=== PATIENT | male | born 1935 | race Caucasian/White ===

== ENCOUNTER 2017-12-15 15:51 | Inpatient (IN) | payer MEDICARE, OTHER, MEDICAID ==
[2017-12-15 16:54] LABS: AADO2 Arterial 141.5 mmHg (7.0-24.0); Allen Test ACCEPTAB; Arterial Base Excess 4.7 mmol/L (-3.0-3); Arterial Blood Gas Oxygen Sat 97.8 mmHG (95.0-100.0); Arterial COHb 0 % (0.0-3.0); Arterial Fraction of Oxyhgb 97.3 % (93.0-99.0); Arterial MetHb 0.5 % (0.0-1.5); Arterial pCO2 36.5 mmhg (35-45); MODE VENT - AC; Site Left Radial
[2017-12-15 17:05] LABS: WHITE BLOOD COUNT 29.8 10^3/ul (4.8-10.8)
[2017-12-15 17:05] LABS: ABNORMAL IP MESSAGE 1; HEMATOCRIT 26.8 % (42.0-52.0); HEMOGLOBIN 8.1 g/dl (14.0-18.0); MEAN CORPUSCULAR HEMOGLOBIN 24.8 pg (29.0-33.0); MEAN CORPUSCULAR HGB CONC 30.2 g/dl (32.0-37.0); MEAN PLATELET VOLUME 9.4 fl (7.4-10.4); PLATELET COUNT 648 10^3/UL (140-415); POSITIVE DIFF @See below; RED BLOOD COUNT 3.27 10^6/ul (4.70-6.10); RED CELL DISTRIBUTION WIDTH 17.3 % (11.5-14.5)
[2017-12-15 17:11] LABS: ADD MAN DIFF? YES
[2017-12-15 17:23] LABS: ALANINE AMINOTRANSFERASE 15 IU/L (13-69); ALBUMIN 3.1 g/dl (3.3-4.9); ALBUMIN/GLOBULIN RATIO 0.65; ALKALINE PHOSPHATASE 204 IU/L (42-121); ANION GAP 12 (8-16); ASPARTATE AMINO TRANSFERASE 33 IU/L (15-46); BILIRUBIN,INDIRECT 0.1 mg/dl (0-1.1); BILIRUBIN,TOTAL 0.1 mg/dl (0.2-1.3); BLOOD UREA NITROGEN 23 mg/dl (7-20); CALCIUM 9.3 mg/dl (8.4-10.2); CARBON DIOXIDE 33 mmol/L (21-31); CHLORIDE 95 mmol/L (97-110); CREATININE 0.52 mg/dl (0.61-1.24); GLUCOSE 212 mg/dl (70-220); POTASSIUM 3.9 mmol/L (3.5-5.1); SODIUM 136 mmol/L (135-144); TOTAL PROTEIN 7.8 g/dl (6.1-8.1)
[2017-12-15 17:29] LABS: LACTIC ACID 3.9 mmol/L (0.5-2.0)
[2017-12-15 17:37] LABS: INR 1.09; PROTIME 14.3 Sec (11.9-14.9); PT RATIO 1.1
[2017-12-15 17:38] LABS: PARTIAL THROMBOPLASTIN TIME 34.6 Sec (25.0-35.0)
[2017-12-15 17:39] LABS: TROPONIN-I < 0.012 ng/ml (0.00-0.12)
[2017-12-15] MEDS: SOD CHLORIDE 0.9% 1,860 ML IV (17:43)
[2017-12-15 17:44] LABS: PATH REVIEW? YES
[2017-12-15] MEDS: MEROPENEM 1 GM/50ML(PMX) 50 ML IVPB (17:47)
[2017-12-15 17:49] LABS: URINE BLOOD (Dip) POC 2+ (NEGATIVE); URINE GLUCOSE (Dip) POC Negative (NEGATIVE); URINE KETONES (Dip) POC Negative (NEGATIVE); URINE LEUKOCYTE EST (Dip) POC 2+ (NEGATIVE); URINE NITRITE (Dip) POC Negative (NEGATIVE); URINE TOTAL PROTEIN POC 1+ (NEGATIVE)
[2017-12-15 18:00] LABS: ANISOCYTOSIS 1+ (0-0); EOSINOPHILS % (M) 1 % (0-7); GIANT THROMBO% (M) 1 % (0-0); HYPOCHROMASIA 1+ (0-0); LYMPHOCYTES % (M) 7 % (15-51); MICROCYTOSIS 1+ (0-0); MONOCYTE #M 0.8 10^3/ul (0.3-0.9); MONOCYTES % (M) 3 % (0-11); PLATELET MORPHOLOGY COMMENT @See below; SEGMENTED NEUTROPHILS (M) % 89 % (39-77)
[2017-12-15 18:17] LABS: ADD UMIC YES; UR ASCORBIC ACID 40 mg/dL (NEGATIVE); UR BACTERIA MODERATE /HPF (NONE SEEN); UR BILIRUBIN (Dip) NEGATIVE (NEGATIVE); UR BLOOD (Dip) 1+ mg/dL (NEGATIVE); UR CLARITY SLIGHTLY CLOUDY (CLEAR); UR COLOR YELLOW (YELLOW); UR GLUCOSE (Dip) NEGATIVE (NEGATIVE); UR KETONES (Dip) NEGATIVE (NEGATIVE); UR LEUKOCYTE ESTERASE (Dip) 2+ Leu/ul (NEGATIVE); UR MUCUS FEW /HPF (NONE SEEN); UR NITRITE (Dip) NEGATIVE (NEGATIVE); UR RBC 7 /HPF (0-5); UR SPECIFIC GRAVITY (Dip) 1.019 (1.003-1.030); UR TOTAL PROTEIN (Dip) 1+ mg/dl (NEGATIVE); UR UROBILINOGEN (Dip) NEGATIVE (NEGATIVE); UR WBC 68 /HPF (0-5)
[2017-12-15] MEDS: LEVOFLOXACIN 750MG/D5W (PMX) 150 ML IVPB (18:27)
[2017-12-15] MEDS ORDERED: morphine 2 MG INJ IV (18:30)
[2017-12-15] MEDS ORDERED: NACL 0.9% 3 ML SYG IV ×2 (18:30)
[2017-12-15] MEDS ORDERED: HYDROCODONE/APAP (5/325) TAB PO (18:30)
[2017-12-15] MEDS ORDERED: ONDANSETRON 4 MG INJ IV (18:30)
[2017-12-15] MEDS ORDERED: GLUCAGON 1 MG INJ IM (19:00)
[2017-12-15] MEDS ORDERED: GLUCOSE GEL 15 GRAM TUBE BUCCAL (19:00)
[2017-12-15] MEDS ORDERED: GLUCOSE GEL 15 GRAM TUBE PO ×2 (19:00)
[2017-12-15] MEDS ORDERED: INSULIN GLARGINE [LANtus] 3 ML PEN SC (20:00)
[2017-12-15] MEDS: INSULIN GLARGINE [LANtus] 3 ML PEN SC (20:00)
[2017-12-15] MEDS: VANCOMYCIN 1 GM (PMX) 250 ML IVPB (20:06)
[2017-12-15 20:20] LABS: LACTIC ACID 2.8 mmol/L (0.5-2.0)
[2017-12-15] MEDS: METHYLPREDNISOLONE 125 MG INJ IV (22:15)
[2017-12-16] MEDS: INSULIN ASPART [NOVOLOG] 3 ML PEN SC ×5 (01:04→23:29)
[2017-12-16] MEDS ORDERED: ACCU-CHEK XX ×2 (02:00)
[2017-12-16] MEDS: ACCU-CHEK XX (02:00)
[2017-12-16] MEDS ORDERED: VANCOMYCIN IV PER PHARMACY XX (03:00)
[2017-12-16] MEDS ORDERED: PENDING SANTYL ORDER FOR WOUND CARE XX (03:30)
[2017-12-16] MEDS: PIPER-TAZO 3.375 GM IV (PMX) 100 ML IVPB ×4 (05:35→23:23)
[2017-12-16] MEDS: PANTOPRAZOLE (EC) 40 MG TAB PO (05:35)
[2017-12-16 09:33] LABS: ADD MAN DIFF? NO
[2017-12-16 09:37] LABS: ABNORMAL IP MESSAGE 1; BASOPHILS % 0.1 % (0.0-2.0); HEMATOCRIT 25.1 % (42.0-52.0); HEMOGLOBIN 7.5 g/dl (14.0-18.0); LYMPHOCYTES # 0.8 10^3/ul (0.8-2.9); LYMPHOCYTES % 3.2 % (15.0-51.0); MEAN CORPUSCULAR HGB CONC 29.9 g/dl (32.0-37.0); MEAN CORPUSCULAR VOLUME 80.4 fl (82.0-101.0); MEAN PLATELET VOLUME 8.6 fl (7.4-10.4); MONOCYTE # 0.2 10^3/ul (0.3-0.9); MONOCYTES % 0.9 % (0.0-11.0); NEUTROPHIL # 22.5 10^3/ul (1.6-7.5); NEUTROPHILS % 94.6 % (39.0-77.0); PLATELET COUNT 598 10^3/UL (140-415); POSITIVE DIFF @See below; RED BLOOD COUNT 3.12 10^6/ul (4.70-6.10); RED CELL DISTRIBUTION WIDTH 17.2 % (11.5-14.5)
[2017-12-16 09:37] LABS: WHITE BLOOD COUNT 23.8 10^3/ul (4.8-10.8)
[2017-12-16] MEDS: METHYLPREDNISOLONE 125 MG INJ IV ×2 (09:38→21:46)
[2017-12-16 10:03] LABS: ALANINE AMINOTRANSFERASE 16 IU/L (13-69); ALBUMIN 2.8 g/dl (3.3-4.9); ALBUMIN/GLOBULIN RATIO 0.63; ALKALINE PHOSPHATASE 166 IU/L (42-121); ANION GAP 13 (8-16); ASPARTATE AMINO TRANSFERASE 21 IU/L (15-46); BILIRUBIN,INDIRECT 0.3 mg/dl (0-1.1); BILIRUBIN,TOTAL 0.3 mg/dl (0.2-1.3); BLOOD UREA NITROGEN 20 mg/dl (7-20); CALCIUM 8.5 mg/dl (8.4-10.2); CARBON DIOXIDE 27 mmol/L (21-31); CHLORIDE 102 mmol/L (97-110); CREATININE 0.46 mg/dl (0.61-1.24); GLUCOSE 283 mg/dl (70-220); POTASSIUM 3.4 mmol/L (3.5-5.1); SODIUM 139 mmol/L (135-144); TOTAL PROTEIN 7.2 g/dl (6.1-8.1)
[2017-12-16] MEDS: VANCOMYCIN 750 MG in DEXTROSE 5% 150 ML IVPB ×2 (10:20→23:23)
[2017-12-16] MEDS ORDERED: VANCOMYCIN 1 GM 250 ML IVPB (14:00)
[2017-12-16] MEDS: POTASSIUM CHLORIDE 20 MEQ POWDER FOR ORAL SOLN GTB (21:46)
[2017-12-16] MEDS: INSULIN GLARGINE [LANtus] 3 ML PEN SC (22:09)
[2017-12-16] MEDS: SOD CHLORIDE 0.9% 1,000 ML IV (23:39)
[2017-12-17] MEDS: INSULIN ASPART [NOVOLOG] 3 ML PEN SC ×5 (01:59→17:48)
[2017-12-17] MEDS: ACCU-CHEK XX (02:00)
[2017-12-17 03:09] LABS: IMMEDIATE SPIN CROSSMATCH 1 2
[2017-12-17] MEDS: SOD CHLORIDE 0.9% 250 ML IV* (03:26)
[2017-12-17] MEDS: PANTOPRAZOLE 40 MG INJ IV (05:53)
[2017-12-17] MEDS: PIPER-TAZO 3.375 GM IV (PMX) 100 ML IVPB ×4 (05:54→21:37)
[2017-12-17] MEDS: SOD CHLORIDE 0.9% 1,000 ML IV ×2 (09:00→19:00)
[2017-12-17] MEDS: METHYLPREDNISOLONE 125 MG INJ IV ×2 (09:12→21:37)
[2017-12-17 09:19] LABS: ADD MAN DIFF? NO
[2017-12-17 09:21] LABS: WHITE BLOOD COUNT 14.9 10^3/ul (4.8-10.8)
[2017-12-17 09:21] LABS: BASOPHILS % 0.1 % (0.0-2.0); HEMATOCRIT 27.7 % (42.0-52.0); HEMOGLOBIN 8.6 g/dl (14.0-18.0); LYMPHOCYTES # 0.7 10^3/ul (0.8-2.9); LYMPHOCYTES % 4.5 % (15.0-51.0); MEAN CORPUSCULAR HEMOGLOBIN 25.5 pg (29.0-33.0); MEAN CORPUSCULAR VOLUME 82.2 fl (82.0-101.0); MEAN PLATELET VOLUME 8.6 fl (7.4-10.4); MONOCYTE # 0.4 10^3/ul (0.3-0.9); MONOCYTES % 2.3 % (0.0-11.0); NEUTROPHIL # 13.8 10^3/ul (1.6-7.5); NEUTROPHILS % 92.3 % (39.0-77.0); PLATELET COUNT 619 10^3/UL (140-415); RED BLOOD COUNT 3.37 10^6/ul (4.70-6.10); RED CELL DISTRIBUTION WIDTH 17.2 % (11.5-14.5)
[2017-12-17 09:49] LABS: ANION GAP 15 (8-16); BLOOD UREA NITROGEN 31 mg/dl (7-20); CALCIUM 8.5 mg/dl (8.4-10.2); CARBON DIOXIDE 24 mmol/L (21-31); CHLORIDE 107 mmol/L (97-110); CREATININE 0.49 mg/dl (0.61-1.24); GLUCOSE 270 mg/dl (70-220); POTASSIUM 3.6 mmol/L (3.5-5.1); SODIUM 142 mmol/L (135-144)
[2017-12-17 09:50] LABS: VANCOMYCIN,TROUGH 11.3 ug/ml (10.0-20.0)
[2017-12-17] MEDS: VANCOMYCIN 750 MG in DEXTROSE 5% 150 ML IVPB ×2 (14:32→21:37)
[2017-12-17] MEDS: INSULIN GLARGINE [LANtus] 3 ML PEN SC (21:50)
[2017-12-18] MEDS: INSULIN ASPART [NOVOLOG] 3 ML PEN SC ×10 (00:13→23:51)
[2017-12-18] MEDS: ACCU-CHEK XX (02:00)
[2017-12-18] MEDS: PIPER-TAZO 3.375 GM IV (PMX) 100 ML IVPB ×4 (06:19→23:48)
[2017-12-18] MEDS: PANTOPRAZOLE 40 MG INJ IV (06:19)
[2017-12-18 06:48] LABS: ADD MAN DIFF? NO
[2017-12-18 06:53] LABS: WHITE BLOOD COUNT 9.2 10^3/ul (4.8-10.8)
[2017-12-18 06:53] LABS: ABNORMAL IP MESSAGE 1; BASOPHILS % 0.1 % (0.0-2.0); HEMATOCRIT 33.1 % (42.0-52.0); HEMOGLOBIN 10.2 g/dl (14.0-18.0); LYMPHOCYTES # 0.5 10^3/ul (0.8-2.9); LYMPHOCYTES % 4.9 % (15.0-51.0); MEAN CORPUSCULAR HEMOGLOBIN 25.2 pg (29.0-33.0); MEAN CORPUSCULAR HGB CONC 30.8 g/dl (32.0-37.0); MEAN CORPUSCULAR VOLUME 81.7 fl (82.0-101.0); MEAN PLATELET VOLUME 8.7 fl (7.4-10.4); MONOCYTE # 0.3 10^3/ul (0.3-0.9); MONOCYTES % 2.7 % (0.0-11.0); NEUTROPHIL # 8.4 10^3/ul (1.6-7.5); NEUTROPHILS % 91.5 % (39.0-77.0); PLATELET COUNT 625 10^3/UL (140-415); POSITIVE DIFF @See below; RED BLOOD COUNT 4.05 10^6/ul (4.70-6.10); RED CELL DISTRIBUTION WIDTH 17.2 % (11.5-14.5)
[2017-12-18 07:12] LABS: ANION GAP 11 (8-16); BLOOD UREA NITROGEN 33 mg/dl (7-20); CALCIUM 8.3 mg/dl (8.4-10.2); CARBON DIOXIDE 27 mmol/L (21-31); CHLORIDE 107 mmol/L (97-110); CREATININE 0.48 mg/dl (0.61-1.24); GLUCOSE 344 mg/dl (70-220); POTASSIUM 3.4 mmol/L (3.5-5.1); SODIUM 142 mmol/L (135-144)
[2017-12-18] MEDS: METHYLPREDNISOLONE 125 MG INJ IV ×2 (08:41→21:16)
[2017-12-18] MEDS: VANCOMYCIN 750 MG in DEXTROSE 5% 150 ML IVPB ×2 (09:44→21:27)
[2017-12-18] MEDS: SOD CHLORIDE 0.9% 1,000 ML IV ×2 (13:21)
[2017-12-18] MEDS: POTASSIUM CHLORIDE 20 MEQ POWDER FOR ORAL SOLN GTB (13:21)
[2017-12-18] MEDS: INSULIN GLARGINE [LANtus] 3 ML PEN SC (21:15)
[2017-12-19] MEDS: ACCU-CHEK XX (00:48)
[2017-12-19] MEDS: PIPER-TAZO 3.375 GM IV (PMX) 100 ML IVPB ×2 (05:57→12:06)
[2017-12-19] MEDS: PANTOPRAZOLE 40 MG INJ IV (05:57)
[2017-12-19] MEDS: INSULIN ASPART [NOVOLOG] 3 ML PEN SC ×9 (06:05→23:55)
[2017-12-19] MEDS: METHYLPREDNISOLONE 125 MG INJ IV ×2 (08:00→21:05)
[2017-12-19] MEDS: VANCOMYCIN 750 MG in DEXTROSE 5% 150 ML IVPB ×2 (09:59→21:52)
[2017-12-19] MEDS ORDERED: ALBUTEROL 0.083% (NEB) 2.5 MG/3 ML AMP HHN (16:30)
[2017-12-19] MEDS: MEROPENEM 1 GM/50ML(PMX) 50 ML IVPB (21:05)
[2017-12-19] MEDS: INSULIN GLARGINE [LANtus] 3 ML PEN SC (21:15)
[2017-12-20] MEDS: ACCU-CHEK XX (02:00)
[2017-12-20] MEDS: PANTOPRAZOLE 40 MG INJ IV (05:31)
[2017-12-20] MEDS: INSULIN ASPART [NOVOLOG] 3 ML PEN SC ×6 (05:32→18:17)
[2017-12-20 06:31] LABS: ADD MAN DIFF? NO
[2017-12-20 06:37] LABS: WHITE BLOOD COUNT 8.5 10^3/ul (4.8-10.8)
[2017-12-20 06:37] LABS: BASOPHILS % 0.1 % (0.0-2.0); HEMATOCRIT 33.7 % (42.0-52.0); HEMOGLOBIN 10.8 g/dl (14.0-18.0); LYMPHOCYTES # 0.6 10^3/ul (0.8-2.9); LYMPHOCYTES % 7.3 % (15.0-51.0); MEAN CORPUSCULAR HEMOGLOBIN 25.5 pg (29.0-33.0); MEAN CORPUSCULAR VOLUME 79.7 fl (82.0-101.0); MEAN PLATELET VOLUME 8.7 fl (7.4-10.4); MONOCYTE # 0.4 10^3/ul (0.3-0.9); MONOCYTES % 4.4 % (0.0-11.0); NEUTROPHIL # 7.4 10^3/ul (1.6-7.5); NEUTROPHILS % 86.8 % (39.0-77.0); PLATELET COUNT 576 10^3/UL (140-415); RED BLOOD COUNT 4.23 10^6/ul (4.70-6.10)
[2017-12-20 07:01] LABS: ANION GAP 10 (8-16); BLOOD UREA NITROGEN 25 mg/dl (7-20); CALCIUM 8.1 mg/dl (8.4-10.2); CARBON DIOXIDE 32 mmol/L (21-31); CHLORIDE 94 mmol/L (97-110); GLUCOSE 296 mg/dl (70-220); POTASSIUM 3.6 mmol/L (3.5-5.1); SODIUM 132 mmol/L (135-144)
[2017-12-20] MEDS: METHYLPREDNISOLONE 125 MG INJ IV (09:35)
[2017-12-20] MEDS: MEROPENEM 1 GM/50ML(PMX) 50 ML IVPB ×2 (09:41→22:35)
[2017-12-20] MEDS: VANCOMYCIN 750 MG in DEXTROSE 5% 150 ML IVPB (10:52)
[2017-12-20 21:19] LABS: VANCOMYCIN,TROUGH 12.6 ug/ml (10.0-20.0)
[2017-12-20] MEDS: INSULIN GLARGINE [LANtus] 3 ML PEN SC (22:43)
[2017-12-21] MEDS: VANCOMYCIN 750 MG in DEXTROSE 5% 150 ML IVPB (01:23)
[2017-12-21] MEDS: INSULIN ASPART [NOVOLOG] 3 ML PEN SC ×9 (01:53→23:57)
[2017-12-21] MEDS: ACCU-CHEK XX (02:00)
[2017-12-21] MEDS: PANTOPRAZOLE 40 MG INJ IV (06:32)
[2017-12-21] MEDS: METHYLPREDNISOLONE 125 MG INJ IV (10:13)
[2017-12-21] MEDS: MEROPENEM 1 GM/50ML(PMX) 50 ML IVPB ×2 (10:13→21:03)
[2017-12-21] MEDS: VANCOMYCIN 1 GM 250 ML IVPB (12:29)
[2017-12-21] MEDS ORDERED: morphine LIQ (10 MG/5 ML) CUP GTB (16:30)
[2017-12-21] MEDS: INSULIN GLARGINE [LANtus] 3 ML PEN SC (21:20)
[2017-12-22] MEDS: INSULIN ASPART [NOVOLOG] 3 ML PEN SC ×8 (00:01→23:58)
[2017-12-22] MEDS: VANCOMYCIN 1 GM 250 ML IVPB ×2 (01:31→13:17)
[2017-12-22] MEDS: ACCU-CHEK XX (02:00)
[2017-12-22] MEDS: PANTOPRAZOLE 40 MG INJ IV (06:18)
[2017-12-22 08:05] LABS: ADD MAN DIFF? NO
[2017-12-22 08:07] LABS: BASOPHILS % 0.1 % (0.0-2.0); EOSINOPHILS # 0.1 10^3/ul (0.0-0.5); EOSINOPHILS % 0.6 % (0.0-7.0); HEMATOCRIT 35.6 % (42.0-52.0); HEMOGLOBIN 11.2 g/dl (14.0-18.0); LYMPHOCYTES % 7.8 % (15.0-51.0); MEAN CORPUSCULAR HEMOGLOBIN 25.6 pg (29.0-33.0); MEAN CORPUSCULAR HGB CONC 31.5 g/dl (32.0-37.0); MEAN CORPUSCULAR VOLUME 81.5 fl (82.0-101.0); MEAN PLATELET VOLUME 8.7 fl (7.4-10.4); MONOCYTE # 0.9 10^3/ul (0.3-0.9); NEUTROPHIL # 10.4 10^3/ul (1.6-7.5); NEUTROPHILS % 83.2 % (39.0-77.0); PLATELET COUNT 509 10^3/UL (140-415); RED BLOOD COUNT 4.37 10^6/ul (4.70-6.10); RED CELL DISTRIBUTION WIDTH 17.9 % (11.5-14.5)
[2017-12-22 08:07] LABS: WHITE BLOOD COUNT 12.5 10^3/ul (4.8-10.8)
[2017-12-22 08:35] LABS: ANION GAP 8 (8-16); BLOOD UREA NITROGEN 32 mg/dl (7-20); CALCIUM 8.2 mg/dl (8.4-10.2); CARBON DIOXIDE 34 mmol/L (21-31); CHLORIDE 95 mmol/L (97-110); CREATININE 0.39 mg/dl (0.61-1.24); GLUCOSE 88 mg/dl (70-220); POTASSIUM 3.4 mmol/L (3.5-5.1); SODIUM 134 mmol/L (135-144)
[2017-12-22] MEDS: METHYLPREDNISOLONE 125 MG INJ IV (09:40)
[2017-12-22] MEDS: MEROPENEM 1 GM/50ML(PMX) 50 ML IVPB ×2 (09:40→21:29)
[2017-12-22] MEDS: SOD CHLORIDE 0.9% 250 ML IV (13:17)
[2017-12-22] MEDS: POTASSIUM CHLORIDE 20 MEQ POWDER FOR ORAL SOLN NGT (13:17)
[2017-12-22] MEDS: INSULIN GLARGINE [LANtus] 3 ML PEN SC (20:06)
[2017-12-23] MEDS: INSULIN ASPART [NOVOLOG] 3 ML PEN SC ×5 (00:01→18:37)
[2017-12-23] MEDS: VANCOMYCIN 1 GM 250 ML IVPB ×2 (01:06→13:37)
[2017-12-23] MEDS: ACCU-CHEK XX (01:09)
[2017-12-23] MEDS: PANTOPRAZOLE 40 MG INJ IV (05:21)
[2017-12-23 08:53] LABS: ADD MAN DIFF? NO; BASOPHILS % 0.1 % (0.0-2.0); EOSINOPHILS # 0.1 10^3/ul (0.0-0.5); EOSINOPHILS % 0.6 % (0.0-7.0); HEMATOCRIT 33.7 % (42.0-52.0); HEMOGLOBIN 10.6 g/dl (14.0-18.0); LYMPHOCYTES # 0.9 10^3/ul (0.8-2.9); LYMPHOCYTES % 5.7 % (15.0-51.0); MEAN CORPUSCULAR HEMOGLOBIN 25.7 pg (29.0-33.0); MEAN CORPUSCULAR HGB CONC 31.5 g/dl (32.0-37.0); MEAN CORPUSCULAR VOLUME 81.8 fl (82.0-101.0); MEAN PLATELET VOLUME 8.7 fl (7.4-10.4); MONOCYTE # 0.9 10^3/ul (0.3-0.9); MONOCYTES % 5.8 % (0.0-11.0); NEUTROPHIL # 13.5 10^3/ul (1.6-7.5); NEUTROPHILS % 86.7 % (39.0-77.0); PLATELET COUNT 460 10^3/UL (140-415); RED BLOOD COUNT 4.12 10^6/ul (4.70-6.10); RED CELL DISTRIBUTION WIDTH 18.4 % (11.5-14.5)
[2017-12-23 08:53] LABS: WHITE BLOOD COUNT 15.6 10^3/ul (4.8-10.8)
[2017-12-23 09:20] LABS: ANION GAP 10 (8-16); BLOOD UREA NITROGEN 27 mg/dl (7-20); CALCIUM 7.6 mg/dl (8.4-10.2); CARBON DIOXIDE 30 mmol/L (21-31); CHLORIDE 96 mmol/L (97-110); CREATININE 0.41 mg/dl (0.61-1.24); GLUCOSE 136 mg/dl (70-220); POTASSIUM 3.8 mmol/L (3.5-5.1); SODIUM 132 mmol/L (135-144)
[2017-12-23 10:09] LABS: ADD UMIC YES; UR ASCORBIC ACID 40 mg/dL (NEGATIVE); UR BILIRUBIN (Dip) NEGATIVE (NEGATIVE); UR BLOOD (Dip) 3+ mg/dL (NEGATIVE); UR CLARITY CLOUDY (CLEAR); UR COLOR RED (YELLOW); UR GLUCOSE (Dip) NEGATIVE (NEGATIVE); UR KETONES (Dip) TRACE mg/dL (NEGATIVE); UR LEUKOCYTE ESTERASE (Dip) TRACE Leu/ul (NEGATIVE); UR NITRITE (Dip) NEGATIVE (NEGATIVE); UR RBC > 182 /HPF (0-5); UR SPECIFIC GRAVITY (Dip) 1.017 (1.003-1.030); UR TOTAL PROTEIN (Dip) 2+ mg/dl (NEGATIVE); UR UROBILINOGEN (Dip) NEGATIVE (NEGATIVE); UR WBC 59 /HPF (0-5)
[2017-12-23] MEDS: MEROPENEM 1 GM/50ML(PMX) 50 ML IVPB ×2 (10:13→20:28)
[2017-12-23] MEDS: METHYLPREDNISOLONE 125 MG INJ IV (10:13)
[2017-12-23 12:45] LABS: VANCOMYCIN,TROUGH 17.2 ug/ml (10.0-20.0)
[2017-12-23] MEDS: INSULIN GLARGINE [LANtus] 3 ML PEN SC (20:44)
[2017-12-23] MEDS: LEVALBUTEROL (HFA) 15 GM INHALER INH (23:27)
[2017-12-24] MEDS: INSULIN ASPART [NOVOLOG] 3 ML PEN SC ×4 (00:59→17:17)
[2017-12-24] MEDS: LEVALBUTEROL (HFA) 15 GM INHALER INH ×4 (01:28→21:05)
[2017-12-24] MEDS: VANCOMYCIN 750 MG in DEXTROSE 5% 150 ML IVPB ×2 (01:45→13:07)
[2017-12-24] MEDS: ACCU-CHEK XX (02:00)
[2017-12-24] MEDS: PANTOPRAZOLE 40 MG INJ IV (05:46)
[2017-12-24 06:17] LABS: ADD MAN DIFF? NO
[2017-12-24 07:05] LABS: ANION GAP 10 (8-16); BLOOD UREA NITROGEN 27 mg/dl (7-20); CALCIUM 7.8 mg/dl (8.4-10.2); CARBON DIOXIDE 30 mmol/L (21-31); CHLORIDE 95 mmol/L (97-110); CREATININE 0.39 mg/dl (0.61-1.24); GLUCOSE 139 mg/dl (70-220); SODIUM 131 mmol/L (135-144)
[2017-12-24 08:38] LABS: WHITE BLOOD COUNT 12.9 10^3/ul (4.8-10.8)
[2017-12-24 08:38] LABS: BASOPHILS % 0.1 % (0.0-2.0); EOSINOPHILS # 0.2 10^3/ul (0.0-0.5); EOSINOPHILS % 1.2 % (0.0-7.0); HEMATOCRIT 33.7 % (42.0-52.0); HEMOGLOBIN 10.7 g/dl (14.0-18.0); LYMPHOCYTES # 0.9 10^3/ul (0.8-2.9); LYMPHOCYTES % 7.3 % (15.0-51.0); MEAN CORPUSCULAR HEMOGLOBIN 26.2 pg (29.0-33.0); MEAN CORPUSCULAR HGB CONC 31.8 g/dl (32.0-37.0); MEAN CORPUSCULAR VOLUME 82.6 fl (82.0-101.0); MEAN PLATELET VOLUME 8.9 fl (7.4-10.4); MONOCYTE # 0.9 10^3/ul (0.3-0.9); MONOCYTES % 7.3 % (0.0-11.0); NEUTROPHIL # 10.7 10^3/ul (1.6-7.5); NEUTROPHILS % 83.1 % (39.0-77.0); PLATELET COUNT 447 10^3/UL (140-415); RED BLOOD COUNT 4.08 10^6/ul (4.70-6.10); RED CELL DISTRIBUTION WIDTH 18.6 % (11.5-14.5)
[2017-12-24] MEDS: MEROPENEM 1 GM/50ML(PMX) 50 ML IVPB ×2 (09:13→21:37)
[2017-12-24] MEDS: METHYLPREDNISOLONE 125 MG INJ IV (09:13)
[2017-12-24] MEDS: DEXTROSE 5%-0.45% NACL 1,000 ML IV (16:00)
[2017-12-24] MEDS: INSULIN GLARGINE [LANtus] 3 ML PEN SC ×2 (21:58→22:22)
[2017-12-25] MEDS: LEVALBUTEROL (HFA) 15 GM INHALER INH ×4 (01:35→19:25)
[2017-12-25] MEDS: ACCU-CHEK XX (02:00)
[2017-12-25] MEDS: VANCOMYCIN 750 MG in DEXTROSE 5% 150 ML IVPB ×2 (03:29→14:16)
[2017-12-25] MEDS: INSULIN ASPART [NOVOLOG] 3 ML PEN SC ×4 (05:28→17:33)
[2017-12-25] MEDS: PANTOPRAZOLE 40 MG INJ IV (05:40)
[2017-12-25 07:10] LABS: ADD MAN DIFF? NO
[2017-12-25 07:12] LABS: WHITE BLOOD COUNT 13.4 10^3/ul (4.8-10.8)
[2017-12-25 07:12] LABS: BASOPHILS % 0.1 % (0.0-2.0); EOSINOPHILS # 0.4 10^3/ul (0.0-0.5); EOSINOPHILS % 2.6 % (0.0-7.0); HEMATOCRIT 38.4 % (42.0-52.0); LYMPHOCYTES # 1.3 10^3/ul (0.8-2.9); MEAN CORPUSCULAR HEMOGLOBIN 25.6 pg (29.0-33.0); MEAN CORPUSCULAR HGB CONC 31.3 g/dl (32.0-37.0); MEAN CORPUSCULAR VOLUME 81.9 fl (82.0-101.0); MEAN PLATELET VOLUME 10.7 fl (7.4-10.4); MONOCYTES % 7.3 % (0.0-11.0); NEUTROPHIL # 10.6 10^3/ul (1.6-7.5); NEUTROPHILS % 79.2 % (39.0-77.0); PLATELET COUNT 272 10^3/UL (140-415); RED BLOOD COUNT 4.69 10^6/ul (4.70-6.10); RED CELL DISTRIBUTION WIDTH 19.7 % (11.5-14.5)
[2017-12-25 07:42] LABS: ANION GAP 9 (8-16); BLOOD UREA NITROGEN 21 mg/dl (7-20); CALCIUM 7.9 mg/dl (8.4-10.2); CARBON DIOXIDE 30 mmol/L (21-31); CHLORIDE 97 mmol/L (97-110); CREATININE 0.39 mg/dl (0.61-1.24); GLUCOSE 65 mg/dl (70-220); SODIUM 132 mmol/L (135-144)
[2017-12-25] MEDS: MEROPENEM 1 GM/50ML(PMX) 50 ML IVPB ×2 (08:44→22:15)
[2017-12-25] MEDS: DEXTROSE 5%-0.45% NACL 1,000 ML IV (08:44)
[2017-12-25] MEDS: METHYLPREDNISOLONE 125 MG INJ IV (08:46)
[2017-12-25] MEDS: INSULIN GLARGINE [LANtus] 3 ML PEN SC (22:33)
[2017-12-26] MEDS: LEVALBUTEROL (HFA) 15 GM INHALER INH ×4 (01:06→19:39)
[2017-12-26] MEDS: ACCU-CHEK XX (02:00)
[2017-12-26] MEDS: VANCOMYCIN 750 MG in DEXTROSE 5% 150 ML IVPB ×2 (05:56→18:00)
[2017-12-26] MEDS: PANTOPRAZOLE 40 MG INJ IV (05:56)
[2017-12-26] MEDS: LORAZEPAM 2 MG INJ IV ×2 (05:56→07:04)
[2017-12-26] MEDS: INSULIN ASPART [NOVOLOG] 3 ML PEN SC ×4 (06:00→17:50)
[2017-12-26] MEDS: DEXTROSE 5%-0.45% NACL 1,000 ML IV (06:00)
[2017-12-26 07:28] LABS: ADD MAN DIFF? NO
[2017-12-26 07:32] LABS: WHITE BLOOD COUNT 14.4 10^3/ul (4.8-10.8)
[2017-12-26 07:33] LABS: BASOPHILS % 0.1 % (0.0-2.0); EOSINOPHILS # 0.4 10^3/ul (0.0-0.5); EOSINOPHILS % 2.5 % (0.0-7.0); HEMATOCRIT 39.1 % (42.0-52.0); LYMPHOCYTES # 1.2 10^3/ul (0.8-2.9); LYMPHOCYTES % 8.3 % (15.0-51.0); MEAN CORPUSCULAR HEMOGLOBIN 25.8 pg (29.0-33.0); MEAN CORPUSCULAR HGB CONC 30.7 g/dl (32.0-37.0); MEAN CORPUSCULAR VOLUME 84.1 fl (82.0-101.0); MEAN PLATELET VOLUME 8.9 fl (7.4-10.4); MONOCYTE # 1.2 10^3/ul (0.3-0.9); MONOCYTES % 8.3 % (0.0-11.0); NEUTROPHIL # 11.5 10^3/ul (1.6-7.5); PLATELET COUNT 378 10^3/UL (140-415); RED BLOOD COUNT 4.65 10^6/ul (4.70-6.10)
[2017-12-26 07:59] LABS: LACTIC ACID 2.6 mmol/L (0.5-2.0)
[2017-12-26 08:00] LABS: ANION GAP 12 (8-16); BLOOD UREA NITROGEN 21 mg/dl (7-20); CALCIUM 8.2 mg/dl (8.4-10.2); CARBON DIOXIDE 27 mmol/L (21-31); CHLORIDE 98 mmol/L (97-110); CREATININE 0.38 mg/dl (0.61-1.24); GLUCOSE 125 mg/dl (70-220); POTASSIUM 4.6 mmol/L (3.5-5.1); SODIUM 132 mmol/L (135-144)
[2017-12-26] MEDS: METHYLPREDNISOLONE 125 MG INJ IV (09:49)
[2017-12-26] MEDS: MEROPENEM 1 GM/50ML(PMX) 50 ML IVPB ×2 (09:49→21:34)
[2017-12-26] MEDS: FLUCONAZOLE 100 MG TAB PO (16:09)
[2017-12-26] MEDS: NS + KCL 20 MEQ 1,000 ML IV (16:54)
[2017-12-26 19:10] LABS: VANCOMYCIN,TROUGH 13.7 ug/ml (10.0-20.0)
[2017-12-26] MEDS: INSULIN GLARGINE [LANtus] 3 ML PEN SC (20:00)
[2017-12-27] MEDS: LEVALBUTEROL (HFA) 15 GM INHALER INH ×4 (01:02→19:28)
[2017-12-27] MEDS: ACCU-CHEK XX (02:41)
[2017-12-27] MEDS: PANTOPRAZOLE 40 MG INJ IV (05:04)
[2017-12-27 06:33] LABS: ADD MAN DIFF? NO
[2017-12-27 06:38] LABS: WHITE BLOOD COUNT 10.2 10^3/ul (4.8-10.8)
[2017-12-27 06:38] LABS: BASOPHILS % 0.1 % (0.0-2.0); EOSINOPHILS # 0.2 10^3/ul (0.0-0.5); EOSINOPHILS % 1.7 % (0.0-7.0); HEMATOCRIT 34.3 % (42.0-52.0); HEMOGLOBIN 10.7 g/dl (14.0-18.0); LYMPHOCYTES # 0.9 10^3/ul (0.8-2.9); LYMPHOCYTES % 9.2 % (15.0-51.0); MEAN CORPUSCULAR HEMOGLOBIN 26.1 pg (29.0-33.0); MEAN CORPUSCULAR HGB CONC 31.2 g/dl (32.0-37.0); MEAN CORPUSCULAR VOLUME 83.7 fl (82.0-101.0); MEAN PLATELET VOLUME 9.3 fl (7.4-10.4); MONOCYTES % 10.2 % (0.0-11.0); PLATELET COUNT 367 10^3/UL (140-415); RED CELL DISTRIBUTION WIDTH 19.8 % (11.5-14.5)
[2017-12-27] MEDS: VANCOMYCIN 750 MG in DEXTROSE 5% 150 ML IVPB ×2 (06:58→17:54)
[2017-12-27 07:00] LABS: ANION GAP 9 (8-16); BLOOD UREA NITROGEN 24 mg/dl (7-20); CALCIUM 7.9 mg/dl (8.4-10.2); CARBON DIOXIDE 30 mmol/L (21-31); CHLORIDE 102 mmol/L (97-110); CREATININE 0.41 mg/dl (0.61-1.24); GLUCOSE 161 mg/dl (70-220); POTASSIUM 4.2 mmol/L (3.5-5.1); SODIUM 137 mmol/L (135-144)
[2017-12-27] MEDS: INSULIN ASPART [NOVOLOG] 3 ML PEN SC ×4 (07:07→18:01)
[2017-12-27] MEDS: FLUCONAZOLE 100 MG TAB PO (09:02)
[2017-12-27] MEDS: METHYLPREDNISOLONE 125 MG INJ IV (09:02)
[2017-12-27] MEDS: MEROPENEM 1 GM/50ML(PMX) 50 ML IVPB ×2 (09:03→21:28)
[2017-12-27] MEDS: NS + KCL 20 MEQ 1,000 ML IV (12:05)
[2017-12-27] MEDS: INSULIN GLARGINE [LANtus] 3 ML PEN SC (21:41)
[2017-12-28] MEDS: ACCU-CHEK XX (00:56)
[2017-12-28] MEDS: LEVALBUTEROL (HFA) 15 GM INHALER INH ×4 (01:49→19:33)
[2017-12-28] MEDS: INSULIN ASPART [NOVOLOG] 3 ML PEN SC ×4 (06:26→18:36)
[2017-12-28] MEDS: PANTOPRAZOLE 40 MG INJ IV (06:37)
[2017-12-28] MEDS: VANCOMYCIN 750 MG in DEXTROSE 5% 150 ML IVPB ×2 (06:39→17:57)
[2017-12-28 08:21] LABS: ADD MAN DIFF? NO
[2017-12-28 08:24] LABS: EOSINOPHILS % 0.1 % (0.0-7.0); HEMATOCRIT 33.9 % (42.0-52.0); HEMOGLOBIN 10.5 g/dl (14.0-18.0); LYMPHOCYTES # 0.9 10^3/ul (0.8-2.9); LYMPHOCYTES % 8.9 % (15.0-51.0); MEAN CORPUSCULAR HEMOGLOBIN 25.6 pg (29.0-33.0); MEAN CORPUSCULAR VOLUME 82.7 fl (82.0-101.0); MEAN PLATELET VOLUME 9.5 fl (7.4-10.4); MONOCYTE # 0.8 10^3/ul (0.3-0.9); MONOCYTES % 8.2 % (0.0-11.0); NEUTROPHIL # 8.1 10^3/ul (1.6-7.5); NEUTROPHILS % 82.2 % (39.0-77.0); PLATELET COUNT 360 10^3/UL (140-415); RED CELL DISTRIBUTION WIDTH 19.9 % (11.5-14.5)
[2017-12-28 08:24] LABS: WHITE BLOOD COUNT 9.9 10^3/ul (4.8-10.8)
[2017-12-28 08:49] LABS: IRON 58 ug/dl (35-150)
[2017-12-28 08:50] LABS: ANION GAP 10 (8-16); BLOOD UREA NITROGEN 26 mg/dl (7-20); CARBON DIOXIDE 27 mmol/L (21-31); CHLORIDE 101 mmol/L (97-110); CREATININE 0.37 mg/dl (0.61-1.24); GLUCOSE 129 mg/dl (70-220); POTASSIUM 4.2 mmol/L (3.5-5.1); SODIUM 134 mmol/L (135-144)
[2017-12-28 08:58] LABS: % IRON SATURATION 25 % SAT (22-52); TOTAL IRON BINDING CAPACITY 233 ug/dl (241-421)
[2017-12-28] MEDS: NS + KCL 20 MEQ 1,000 ML IV (09:00)
[2017-12-28] MEDS: MEROPENEM 1 GM/50ML(PMX) 50 ML IVPB ×2 (09:56→20:35)
[2017-12-28] MEDS: METHYLPREDNISOLONE 125 MG INJ IV (09:56)
[2017-12-28] MEDS: FLUCONAZOLE 100 MG TAB PO (09:57)
[2017-12-28 10:03] LABS: RETICULOCYTE COUNT # 0.061 X10^6 (0.020-0.110); RETICULOCYTE COUNT % 1.5 % (0.5-1.5)
[2017-12-28 10:03] LABS: RETICULOCYTE RBC 4.12
[2017-12-28 11:52] LABS: OCCULT BLOOD STOOL POSITIVE (NEGATIVE)
[2017-12-28 12:17] LABS: FOLATE 12.2 ng/ml (2.8-20.0)
[2017-12-28] MEDS: INSULIN GLARGINE [LANtus] 3 ML PEN SC (20:52)
[2017-12-29] MEDS: NS + KCL 20 MEQ 1,000 ML IV ×2 (00:09→21:20)
[2017-12-29] MEDS: INSULIN ASPART [NOVOLOG] 3 ML PEN SC ×5 (00:40→21:14)
[2017-12-29] MEDS: LEVALBUTEROL (HFA) 15 GM INHALER INH ×4 (01:34→19:22)
[2017-12-29] MEDS: ACCU-CHEK XX (02:00)
[2017-12-29] MEDS: PANTOPRAZOLE 40 MG INJ IV (06:09)
[2017-12-29] MEDS: VANCOMYCIN 750 MG in DEXTROSE 5% 150 ML IVPB ×2 (06:12→18:11)
[2017-12-29] MEDS: METHYLPREDNISOLONE 125 MG INJ IV (09:21)
[2017-12-29] MEDS: MEROPENEM 1 GM/50ML(PMX) 50 ML IVPB ×2 (09:21→21:11)
[2017-12-29] MEDS: FLUCONAZOLE 100 MG TAB PO (09:21)
[2017-12-29 09:40] LABS: WHITE BLOOD COUNT 11.7 10^3/ul (4.8-10.8)
[2017-12-29 09:40] LABS: ADD MAN DIFF? NO; BASOPHILS % 0.1 % (0.0-2.0); EOSINOPHILS # 0.1 10^3/ul (0.0-0.5); EOSINOPHILS % 0.7 % (0.0-7.0); HEMATOCRIT 33.1 % (42.0-52.0); HEMOGLOBIN 10.4 g/dl (14.0-18.0); LYMPHOCYTES # 0.9 10^3/ul (0.8-2.9); LYMPHOCYTES % 7.7 % (15.0-51.0); MEAN CORPUSCULAR HEMOGLOBIN 26.2 pg (29.0-33.0); MEAN CORPUSCULAR HGB CONC 31.4 g/dl (32.0-37.0); MEAN CORPUSCULAR VOLUME 83.4 fl (82.0-101.0); MEAN PLATELET VOLUME 9.4 fl (7.4-10.4); MONOCYTE # 0.9 10^3/ul (0.3-0.9); NEUTROPHIL # 9.7 10^3/ul (1.6-7.5); NEUTROPHILS % 82.8 % (39.0-77.0); PLATELET COUNT 296 10^3/UL (140-415); RED BLOOD COUNT 3.97 10^6/ul (4.70-6.10); RED CELL DISTRIBUTION WIDTH 19.9 % (11.5-14.5)
[2017-12-29 10:10] LABS: ANION GAP 10 (8-16); BLOOD UREA NITROGEN 26 mg/dl (7-20); CARBON DIOXIDE 29 mmol/L (21-31); CHLORIDE 99 mmol/L (97-110); CREATININE 0.41 mg/dl (0.61-1.24); GLUCOSE 159 mg/dl (70-220); POTASSIUM 4.1 mmol/L (3.5-5.1); SODIUM 134 mmol/L (135-144)
[2017-12-29] MEDS: INSULIN GLARGINE [LANtus] 3 ML PEN SC (21:14)
[2017-12-30] MEDS: LEVALBUTEROL (HFA) 15 GM INHALER INH ×3 (01:04→19:32)
[2017-12-30] MEDS: ACCU-CHEK XX ×2 (02:00→23:45)
[2017-12-30] MEDS: VANCOMYCIN 750 MG in DEXTROSE 5% 150 ML IVPB ×2 (06:00→20:13)
[2017-12-30] MEDS: INSULIN ASPART [NOVOLOG] 3 ML PEN SC ×4 (06:00→23:44)
[2017-12-30] MEDS: PANTOPRAZOLE 40 MG INJ IV (06:04)
[2017-12-30] MEDS: DEXTROSE 50% 50 ML SYRINGE IV (06:26)
[2017-12-30 06:28] LABS: ADD MAN DIFF? NO
[2017-12-30 06:31] LABS: PLATELET COUNT 283 10^3/UL (140-415)
[2017-12-30 06:33] LABS: WHITE BLOOD COUNT 11.1 10^3/ul (4.8-10.8)
[2017-12-30 06:33] LABS: BASOPHILS % 0.1 % (0.0-2.0); EOSINOPHILS % 0.4 % (0.0-7.0); HEMATOCRIT 32.4 % (42.0-52.0); HEMOGLOBIN 10.5 g/dl (14.0-18.0); LYMPHOCYTES # 1.2 10^3/ul (0.8-2.9); LYMPHOCYTES % 10.4 % (15.0-51.0); MEAN CORPUSCULAR HEMOGLOBIN 26.5 pg (29.0-33.0); MEAN CORPUSCULAR HGB CONC 32.4 g/dl (32.0-37.0); MEAN CORPUSCULAR VOLUME 81.8 fl (82.0-101.0); MEAN PLATELET VOLUME 9.2 fl (7.4-10.4); MONOCYTE # 0.8 10^3/ul (0.3-0.9); MONOCYTES % 6.9 % (0.0-11.0); NEUTROPHIL # 9.1 10^3/ul (1.6-7.5); NEUTROPHILS % 81.6 % (39.0-77.0); PLATELET COUNT 275 10^3/UL (140-415); RED BLOOD COUNT 3.96 10^6/ul (4.70-6.10); RED CELL DISTRIBUTION WIDTH 19.7 % (11.5-14.5)
[2017-12-30 06:55] LABS: ANION GAP 11 (8-16); BLOOD UREA NITROGEN 25 mg/dl (7-20); CARBON DIOXIDE 28 mmol/L (21-31); CHLORIDE 98 mmol/L (97-110); CREATININE 0.38 mg/dl (0.61-1.24); GLUCOSE 61 mg/dl (70-220); POTASSIUM 3.7 mmol/L (3.5-5.1); SODIUM 133 mmol/L (135-144)
[2017-12-30 07:00] LABS: INR 0.97
[2017-12-30 07:01] LABS: PARTIAL THROMBOPLASTIN TIME 26.3 Sec (25.0-35.0)
[2017-12-30 07:05] LABS: THROMBIN TIME 16.9 SEC (13.8-19.1)
[2017-12-30 07:09] LABS: VANCOMYCIN,TROUGH 12.5 ug/ml (10.0-20.0)
[2017-12-30] MEDS: FLUCONAZOLE 100 MG TAB PO (08:36)
[2017-12-30] MEDS: METHYLPREDNISOLONE 125 MG INJ IV (08:36)
[2017-12-30] MEDS: MEROPENEM 1 GM/50ML(PMX) 50 ML IVPB ×4 (10:54→23:38)
[2017-12-30] MEDS: SOD CHLORIDE 0.9% 1,000 ML IV (12:10)
[2017-12-30] MEDS: LIDOCAINE 1% (MPF) 5 ML VIAL SC (16:00)
[2017-12-30] MEDS: NS + KCL 20 MEQ 1,000 ML IV (20:15)
[2017-12-30] MEDS: INSULIN GLARGINE [LANtus] 3 ML PEN SC (20:18)
[2017-12-31] MEDS: LEVALBUTEROL (HFA) 15 GM INHALER INH ×4 (01:42→19:47)
[2017-12-31] MEDS: PANTOPRAZOLE 40 MG INJ IV (05:58)
[2017-12-31] MEDS: INSULIN ASPART [NOVOLOG] 3 ML PEN SC ×4 (05:59→18:00)
[2017-12-31] MEDS: VANCOMYCIN 750 MG in DEXTROSE 5% 150 ML IVPB ×2 (06:00→18:00)
[2017-12-31 06:55] LABS: ABNORMAL IP MESSAGE 1; HEMATOCRIT 39.6 % (42.0-52.0); HEMOGLOBIN 12.5 g/dl (14.0-18.0); MEAN CORPUSCULAR HEMOGLOBIN 26.4 pg (29.0-33.0); MEAN CORPUSCULAR HGB CONC 31.6 g/dl (32.0-37.0); MEAN CORPUSCULAR VOLUME 83.5 fl (82.0-101.0); MEAN PLATELET VOLUME 9.3 fl (7.4-10.4); PLATELET COUNT 256 10^3/UL (140-415); POSITIVE DIFF @See below; RED BLOOD COUNT 4.74 10^6/ul (4.70-6.10); RED CELL DISTRIBUTION WIDTH 20.4 % (11.5-14.5)
[2017-12-31 06:55] LABS: WHITE BLOOD COUNT 41.1 10^3/ul (4.8-10.8)
[2017-12-31 07:07] LABS: ADD MAN DIFF? YES
[2017-12-31 07:39] LABS: ALANINE AMINOTRANSFERASE 20 IU/L (13-69); ALBUMIN 2.8 g/dl (3.3-4.9); ALBUMIN/GLOBULIN RATIO 0.84; ALKALINE PHOSPHATASE 163 IU/L (42-121); ANION GAP 8 (8-16); ASPARTATE AMINO TRANSFERASE 24 IU/L (15-46); BILIRUBIN,INDIRECT 0.3 mg/dl (0-1.1); BILIRUBIN,TOTAL 0.3 mg/dl (0.2-1.3); BLOOD UREA NITROGEN 24 mg/dl (7-20); CALCIUM 8.3 mg/dl (8.4-10.2); CARBON DIOXIDE 26 mmol/L (21-31); CHLORIDE 107 mmol/L (97-110); CREATININE 0.36 mg/dl (0.61-1.24); GLUCOSE 72 mg/dl (70-220); POTASSIUM 3.4 mmol/L (3.5-5.1); SODIUM 138 mmol/L (135-144); TOTAL PROTEIN 6.1 g/dl (6.1-8.1)
[2017-12-31] MEDS: FLUCONAZOLE 100 MG TAB PO (09:06)
[2017-12-31] MEDS: MEROPENEM 1 GM/50ML(PMX) 50 ML IVPB ×2 (09:06→22:33)
[2017-12-31] MEDS: METHYLPREDNISOLONE 125 MG INJ IV (09:06)
[2017-12-31 10:46] LABS: ANISOCYTOSIS 2+ (0-0); BAND NEUTROPHILS #M 3.2 10^3/ul (0.0-0.6); BAND NEUTROPHILS % (M) 8 % (0-4); HYPOCHROMASIA 1+ (0-0); LYMPHOCYTES #M 0.4 10^3/ul (0.8-2.9); LYMPHOCYTES % (M) 1 % (15-51); MICROCYTOSIS 2+ (0-0); PLATELET ESTIMATE NORMAL; POLYCHROMASIA 3+ (0-0); SEG NEUT #M 38.7 10^3/ul (1.6-7.5); SEGMENTED NEUTROPHILS (M) % 91 % (39-77); SMUDGE%M 3 % (0-0)
[2017-12-31] MEDS: ACETAMINOPHEN 325 MG TAB PO (11:43)
[2017-12-31] MEDS: DEXTROSE 50% 50 ML SYRINGE IV (11:43)
[2017-12-31] MEDS: SOD CHLORIDE 0.9% 500 ML IV ×2 (13:25→16:14)
[2017-12-31] MEDS: NS + KCL 20 MEQ 1,000 ML IV (14:14)
[2017-12-31] MEDS: metroNIDAZOLE 500 MG TAB PO ×2 (14:14→22:34)
[2017-12-31 14:20] LABS: WHITE BLOOD COUNT 49.6 10^3/ul (4.8-10.8)
[2017-12-31 14:20] LABS: ABNORMAL IP MESSAGE 1; HEMOGLOBIN 9.6 g/dl (14.0-18.0); MEAN CORPUSCULAR HEMOGLOBIN 26.7 pg (29.0-33.0); MEAN CORPUSCULAR VOLUME 83.6 fl (82.0-101.0); MEAN PLATELET VOLUME 9.2 fl (7.4-10.4); PLATELET COUNT 200 10^3/UL (140-415); POSITIVE DIFF @See below; RED BLOOD COUNT 3.59 10^6/ul (4.70-6.10); RED CELL DISTRIBUTION WIDTH 20.3 % (11.5-14.5)
[2017-12-31 14:21] LABS: ADD MAN DIFF? YES
[2017-12-31 14:34] LABS: ANION GAP 6 (8-16); BLOOD UREA NITROGEN 28 mg/dl (7-20); CALCIUM 7.2 mg/dl (8.4-10.2); CARBON DIOXIDE 26 mmol/L (21-31); CHLORIDE 105 mmol/L (97-110); CREATININE 0.44 mg/dl (0.61-1.24); GLUCOSE 107 mg/dl (70-220); POTASSIUM 3.3 mmol/L (3.5-5.1); SODIUM 134 mmol/L (135-144)
[2017-12-31 14:55] LABS: LACTIC ACID 2.3 mmol/L (0.5-2.0)
[2017-12-31 15:40] LABS: ANISOCYTOSIS 2+ (0-0); BAND NEUTROPHILS #M 8.9 10^3/ul (0.0-0.6); BAND NEUTROPHILS % (M) 18 % (0-4); HYPOCHROMASIA 2+ (0-0); MICROCYTOSIS 2+ (0-0); PLATELET ESTIMATE NORMAL; POLYCHROMASIA 1+ (0-0); SEG NEUT #M 45.1 10^3/ul (1.6-7.5); SEGMENTED NEUTROPHILS (M) % 82 % (39-77); SMUDGE%M 11 % (0-0)
[2017-12-31] MEDS ORDERED: PHENYLephrine 20MG IN 250 ML 250 ML IV (18:00)
[2017-12-31] MEDS: SOD CHLORIDE 0.9% 1,000 ML IV (18:10)
[2017-12-31] MEDS ORDERED: PHENYLephrine 40 MG in DEXTROSE 5% 496 ML IV (18:30)
[2017-12-31] MEDS: POTASSIUM CHLORIDE 100 ML IVPB (20:40)
[2017-12-31] MEDS: INSULIN GLARGINE [LANtus] 3 ML PEN SC (22:33)
[2017-12-31] MEDS: ACCU-CHEK XX (22:58)
[2018-01-01] MEDS: LEVALBUTEROL (HFA) 15 GM INHALER INH ×4 (01:14→19:16)
[2018-01-01] MEDS: PANTOPRAZOLE 40 MG INJ IV (05:06)
[2018-01-01] MEDS: metroNIDAZOLE 500 MG TAB PO (05:06)
[2018-01-01] MEDS: NS + KCL 20 MEQ 1,000 ML IV ×2 (05:06→20:13)
[2018-01-01] MEDS: VANCOMYCIN 750 MG in DEXTROSE 5% 150 ML IVPB ×2 (05:06→18:50)
[2018-01-01] MEDS: INSULIN ASPART [NOVOLOG] 3 ML PEN SC ×5 (06:18→23:00)
[2018-01-01] MEDS: FLUCONAZOLE 100 MG TAB PO (09:07)
[2018-01-01] MEDS: METHYLPREDNISOLONE 125 MG INJ IV (09:07)
[2018-01-01] MEDS: MEROPENEM 1 GM/50ML(PMX) 50 ML IVPB (09:35)
[2018-01-01] MEDS: metroNIDAZOLE 500 MG/NS (PMX) 100 ML IVPB ×3 (12:31→22:59)
[2018-01-01] MEDS: INSULIN GLARGINE [LANtus] 3 ML PEN SC (20:12)
[2018-01-02] MEDS: LEVALBUTEROL (HFA) 15 GM INHALER INH ×4 (01:15→19:25)
[2018-01-02] MEDS: ACCU-CHEK XX (02:00)
[2018-01-02] MEDS: DEXTROSE 50% 50 ML SYRINGE IV (04:28)
[2018-01-02] MEDS: PANTOPRAZOLE 40 MG INJ IV (04:46)
[2018-01-02] MEDS: VANCOMYCIN 750 MG in DEXTROSE 5% 150 ML IVPB ×2 (04:46→17:24)
[2018-01-02] MEDS: INSULIN ASPART [NOVOLOG] 3 ML PEN SC ×5 (04:46→20:49)
[2018-01-02] MEDS: metroNIDAZOLE 500 MG/NS (PMX) 100 ML IVPB ×3 (04:46→17:23)
[2018-01-02 05:45] LABS: ADD MAN DIFF? NO
[2018-01-02 06:01] LABS: WHITE BLOOD COUNT 20.5 10^3/ul (4.8-10.8)
[2018-01-02 06:01] LABS: BASOPHILS % 0.1 % (0.0-2.0); HEMATOCRIT 28.7 % (42.0-52.0); HEMOGLOBIN 9.4 g/dl (14.0-18.0); LYMPHOCYTES # 0.8 10^3/ul (0.8-2.9); LYMPHOCYTES % 3.9 % (15.0-51.0); MEAN CORPUSCULAR HEMOGLOBIN 26.8 pg (29.0-33.0); MEAN CORPUSCULAR HGB CONC 32.8 g/dl (32.0-37.0); MEAN CORPUSCULAR VOLUME 81.8 fl (82.0-101.0); MEAN PLATELET VOLUME 9.9 fl (7.4-10.4); MONOCYTE # 0.3 10^3/ul (0.3-0.9); MONOCYTES % 1.7 % (0.0-11.0); NEUTROPHIL # 19.2 10^3/ul (1.6-7.5); NEUTROPHILS % 93.8 % (39.0-77.0); PLATELET COUNT 154 10^3/UL (140-415); RED BLOOD COUNT 3.51 10^6/ul (4.70-6.10); RED CELL DISTRIBUTION WIDTH 20.9 % (11.5-14.5)
[2018-01-02 06:23] LABS: ANION GAP 10 (8-16); BLOOD UREA NITROGEN 16 mg/dl (7-20); CALCIUM 7.9 mg/dl (8.4-10.2); CARBON DIOXIDE 25 mmol/L (21-31); CHLORIDE 106 mmol/L (97-110); CREATININE 0.36 mg/dl (0.61-1.24); PHOSPHORUS 2.1 mg/dl (2.5-4.9); POTASSIUM 3.8 mmol/L (3.5-5.1); SODIUM 137 mmol/L (135-144)
[2018-01-02 06:51] LABS: GLUCOSE 40 mg/dl (70-220)
[2018-01-02] MEDS: FLUCONAZOLE 100 MG TAB PO (07:49)
[2018-01-02] MEDS: METHYLPREDNISOLONE 125 MG INJ IV (08:49)
[2018-01-02] MEDS: DEXTROSE 5%-0.9% NACL 1,000 ML IV (09:00)
[2018-01-02] MEDS: D5-NS + KCL 20 MEQ 1,000 ML IV (09:35)
[2018-01-02] MEDS: INSULIN GLARGINE [LANtus] 3 ML PEN SC (20:00)
[2018-01-03] MEDS: INSULIN ASPART [NOVOLOG] 3 ML PEN SC ×6 (00:59→20:45)
[2018-01-03] MEDS: metroNIDAZOLE 500 MG/NS (PMX) 100 ML IVPB ×2 (01:02→05:19)
[2018-01-03] MEDS: D5-NS + KCL 20 MEQ 1,000 ML IV ×2 (01:02→11:40)
[2018-01-03] MEDS: LEVALBUTEROL (HFA) 15 GM INHALER INH ×4 (01:11→19:17)
[2018-01-03 05:15] LABS: ADD MAN DIFF? NO
[2018-01-03] MEDS: PANTOPRAZOLE 40 MG INJ IV (05:19)
[2018-01-03 05:26] LABS: BASOPHILS % 0.1 % (0.0-2.0); EOSINOPHILS % 0.1 % (0.0-7.0); HEMATOCRIT 30.7 % (42.0-52.0); HEMOGLOBIN 9.8 g/dl (14.0-18.0); LYMPHOCYTES # 0.6 10^3/ul (0.8-2.9); LYMPHOCYTES % 6.2 % (15.0-51.0); MEAN CORPUSCULAR HEMOGLOBIN 26.6 pg (29.0-33.0); MEAN CORPUSCULAR HGB CONC 31.9 g/dl (32.0-37.0); MEAN CORPUSCULAR VOLUME 83.4 fl (82.0-101.0); MONOCYTE # 0.3 10^3/ul (0.3-0.9); MONOCYTES % 2.8 % (0.0-11.0); NEUTROPHIL # 8.9 10^3/ul (1.6-7.5); NEUTROPHILS % 90.2 % (39.0-77.0); PLATELET COUNT 138 10^3/UL (140-415); RED BLOOD COUNT 3.68 10^6/ul (4.70-6.10); RED CELL DISTRIBUTION WIDTH 21.1 % (11.5-14.5)
[2018-01-03 05:26] LABS: WHITE BLOOD COUNT 9.9 10^3/ul (4.8-10.8)
[2018-01-03 06:02] LABS: VANCOMYCIN,TROUGH 14.5 ug/ml (10.0-20.0)
[2018-01-03 06:13] LABS: ANION GAP 9 (8-16); BLOOD UREA NITROGEN 12 mg/dl (7-20); CALCIUM 7.9 mg/dl (8.4-10.2); CARBON DIOXIDE 28 mmol/L (21-31); CHLORIDE 104 mmol/L (97-110); CREATININE 0.38 mg/dl (0.61-1.24); GLUCOSE 119 mg/dl (70-220); POTASSIUM 3.7 mmol/L (3.5-5.1); SODIUM 137 mmol/L (135-144)
[2018-01-03] MEDS: VANCOMYCIN 750 MG in DEXTROSE 5% 150 ML IVPB ×2 (06:18→17:13)
[2018-01-03] MEDS: FLUCONAZOLE 100 MG TAB PO (08:55)
[2018-01-03] MEDS: METHYLPREDNISOLONE 40 MG INJ IV (08:56)
[2018-01-03] MEDS: LORAZEPAM 2 MG INJ IV (10:30)
[2018-01-03] MEDS ORDERED: metroNIDAZOLE 500 MG/NS (PMX) 250 MG in EVAC CONTAINER 1 BOTTLE IVPB (14:00)
[2018-01-03] MEDS: Metronidazole 500 MG in NS 100 ML IVPB ×2 (15:47→21:14)
[2018-01-03] MEDS: INSULIN GLARGINE [LANtus] 3 ML PEN SC (20:44)
[2018-01-04] MEDS: INSULIN ASPART [NOVOLOG] 3 ML PEN SC ×6 (01:00→21:00)
[2018-01-04] MEDS: LEVALBUTEROL (HFA) 15 GM INHALER INH ×4 (01:37→19:17)
[2018-01-04] MEDS: D5-NS + KCL 20 MEQ 1,000 ML IV ×2 (01:43→14:20)
[2018-01-04] MEDS: DEXTROSE 50% 50 ML SYRINGE IV ×3 (04:54→13:45)
[2018-01-04] MEDS: PANTOPRAZOLE 40 MG INJ IV (05:09)
[2018-01-04] MEDS: Metronidazole 500 MG in NS 100 ML IVPB ×3 (05:09→21:08)
[2018-01-04] MEDS: VANCOMYCIN 750 MG in DEXTROSE 5% 150 ML IVPB ×2 (05:58→17:38)
[2018-01-04 08:01] LABS: ADD MAN DIFF? NO
[2018-01-04 08:30] LABS: ANION GAP 14 (8-16); BLOOD UREA NITROGEN 11 mg/dl (7-20); CALCIUM 8.1 mg/dl (8.4-10.2); CARBON DIOXIDE 26 mmol/L (21-31); CHLORIDE 98 mmol/L (97-110); CREATININE 0.38 mg/dl (0.61-1.24); GLUCOSE 53 mg/dl (70-220); POTASSIUM 3.6 mmol/L (3.5-5.1); SODIUM 134 mmol/L (135-144)
[2018-01-04] MEDS: FLUCONAZOLE 100 MG TAB PO (08:41)
[2018-01-04 09:46] LABS: WHITE BLOOD COUNT 15.8 10^3/ul (4.8-10.8)
[2018-01-04 09:46] LABS: BASOPHILS % 0.1 % (0.0-2.0); EOSINOPHILS # 0.1 10^3/ul (0.0-0.5); EOSINOPHILS % 0.8 % (0.0-7.0); HEMATOCRIT 36.2 % (42.0-52.0); HEMOGLOBIN 11.5 g/dl (14.0-18.0); LYMPHOCYTES # 1.3 10^3/ul (0.8-2.9); LYMPHOCYTES % 7.9 % (15.0-51.0); MEAN CORPUSCULAR HEMOGLOBIN 26.6 pg (29.0-33.0); MEAN CORPUSCULAR HGB CONC 31.8 g/dl (32.0-37.0); MEAN CORPUSCULAR VOLUME 83.8 fl (82.0-101.0); MEAN PLATELET VOLUME 9.7 fl (7.4-10.4); MONOCYTE # 0.2 10^3/ul (0.3-0.9); NEUTROPHIL # 14.2 10^3/ul (1.6-7.5); NEUTROPHILS % 89.7 % (39.0-77.0); PLATELET COUNT 132 10^3/UL (140-415); RED BLOOD COUNT 4.32 10^6/ul (4.70-6.10); RED CELL DISTRIBUTION WIDTH 21.3 % (11.5-14.5)
[2018-01-04] MEDS: ACETAMINOPHEN 650 MG SUPP PR (09:53)
[2018-01-04] MEDS: SOD CHLORIDE 0.9% 1,000 ML IV (11:47)
[2018-01-04] MEDS: VANCOMYCIN HCL 250 MG/5ML POSYG PO (12:00)
[2018-01-04] MEDS: MEROPENEM 500MG/50 ML (PMX) 50 ML IVPB ×2 (13:14→21:08)
[2018-01-04] MEDS ORDERED: NORepinephrine 8MG/250 ML (PMX 250 ML IV (13:30)
[2018-01-04] MEDS ORDERED: NORepinephrine 8MG/250 ML (PMX 250 ML (13:34)
[2018-01-04 13:35] LABS: ALPHA FETOPROTEIN 1.53 IU/L (0.00-7.21)
[2018-01-04] MEDS: LORAZEPAM 2 MG INJ IV (14:35)
[2018-01-04] MEDS ORDERED: morphine 2 MG INJ (14:48)
[2018-01-04] MEDS: FLUCONAZOLE 100 MG/50 ML (PMX) 50 ML IVPB (16:00)
[2018-01-04] MEDS: INSULIN GLARGINE [LANtus] 3 ML PEN SC (20:00)
[2018-01-05] MEDS: INSULIN ASPART [NOVOLOG] 3 ML PEN SC ×6 (01:00→21:05)
[2018-01-05] MEDS: LEVALBUTEROL (HFA) 15 GM INHALER INH ×4 (01:24→20:23)
[2018-01-05] MEDS: D5-NS + KCL 20 MEQ 1,000 ML IV ×2 (03:25→11:22)
[2018-01-05 05:23] LABS: ADD MAN DIFF? NO
[2018-01-05] MEDS: Metronidazole 500 MG in NS 100 ML IVPB ×3 (05:29→21:05)
[2018-01-05] MEDS: PANTOPRAZOLE 40 MG INJ IV (05:29)
[2018-01-05 05:51] LABS: ABNORMAL IP MESSAGE 1; BASOPHILS % 0.1 % (0.0-2.0); EOSINOPHILS # 0.7 10^3/ul (0.0-0.5); EOSINOPHILS % 6.9 % (0.0-7.0); HEMATOCRIT 31.1 % (42.0-52.0); HEMOGLOBIN 10.1 g/dl (14.0-18.0); LYMPHOCYTES # 0.4 10^3/ul (0.8-2.9); LYMPHOCYTES % 3.7 % (15.0-51.0); MEAN CORPUSCULAR HEMOGLOBIN 26.7 pg (29.0-33.0); MEAN CORPUSCULAR HGB CONC 32.5 g/dl (32.0-37.0); MEAN CORPUSCULAR VOLUME 82.3 fl (82.0-101.0); MEAN PLATELET VOLUME 9.4 fl (7.4-10.4); MONOCYTE # 0.2 10^3/ul (0.3-0.9); MONOCYTES % 1.6 % (0.0-11.0); NEUTROPHIL # 9.1 10^3/ul (1.6-7.5); NEUTROPHILS % 86.9 % (39.0-77.0); POSITIVE DIFF @See below; RED BLOOD COUNT 3.78 10^6/ul (4.70-6.10); RED CELL DISTRIBUTION WIDTH 21.2 % (11.5-14.5)
[2018-01-05 05:51] LABS: WHITE BLOOD COUNT 10.5 10^3/ul (4.8-10.8)
[2018-01-05 05:52] LABS: PLATELET COUNT 79 10^3/UL (140-415)
[2018-01-05 05:59] LABS: ANION GAP 9 (8-16); BLOOD UREA NITROGEN 9 mg/dl (7-20); CALCIUM 7.3 mg/dl (8.4-10.2); CARBON DIOXIDE 26 mmol/L (21-31); CHLORIDE 100 mmol/L (97-110); CREATININE 0.37 mg/dl (0.61-1.24); GLUCOSE 122 mg/dl (70-220); POTASSIUM 3.3 mmol/L (3.5-5.1); SODIUM 132 mmol/L (135-144)
[2018-01-05] MEDS: VANCOMYCIN 750 MG in DEXTROSE 5% 150 ML IVPB ×2 (06:12→17:31)
[2018-01-05] MEDS: MEROPENEM 500MG/50 ML (PMX) 50 ML IVPB ×2 (08:26→21:05)
[2018-01-05] MEDS: POTASSIUM CHLORIDE 100 ML IVPB ×2 (11:22→13:36)
[2018-01-05] MEDS ORDERED: COLLAGENASE 5 GM (UD JAR) TOP (12:30)
[2018-01-05] MEDS: FLUCONAZOLE 100 MG/50 ML (PMX) 50 ML IVPB (15:24)
[2018-01-05] MEDS: ACETAMINOPHEN 650 MG SUPP PR (15:26)
[2018-01-05] MEDS: INSULIN GLARGINE [LANtus] 3 ML PEN SC (20:00)
[2018-01-06] MEDS: INSULIN ASPART [NOVOLOG] 3 ML PEN SC ×6 (00:43→20:58)
[2018-01-06] MEDS: LEVALBUTEROL (HFA) 15 GM INHALER INH ×4 (01:24→20:05)
[2018-01-06] MEDS: VANCOMYCIN 750 MG in DEXTROSE 5% 150 ML IVPB ×2 (05:14→17:16)
[2018-01-06] MEDS: PANTOPRAZOLE 40 MG INJ IV (05:14)
[2018-01-06] MEDS: Metronidazole 500 MG in NS 100 ML IVPB ×3 (05:14→21:01)
[2018-01-06 06:08] LABS: ABNORMAL IP MESSAGE 1; HEMATOCRIT 29.2 % (42.0-52.0); HEMOGLOBIN 9.4 g/dl (14.0-18.0); MEAN CORPUSCULAR HGB CONC 32.2 g/dl (32.0-37.0); MEAN CORPUSCULAR VOLUME 83.9 fl (82.0-101.0); MEAN PLATELET VOLUME 10.2 fl (7.4-10.4); PLATELET COUNT 76 10^3/UL (140-415); POSITIVE DIFF @See below; RED BLOOD COUNT 3.48 10^6/ul (4.70-6.10); RED CELL DISTRIBUTION WIDTH 21.4 % (11.5-14.5)
[2018-01-06 06:08] LABS: WHITE BLOOD COUNT 7.3 10^3/ul (4.8-10.8)
[2018-01-06] MEDS: D5-NS + KCL 20 MEQ 1,000 ML IV (06:12)
[2018-01-06 06:28] LABS: ADD MAN DIFF? YES
[2018-01-06 06:33] LABS: ANION GAP 11 (8-16); BLOOD UREA NITROGEN 9 mg/dl (7-20); CALCIUM 7.7 mg/dl (8.4-10.2); CARBON DIOXIDE 26 mmol/L (21-31); CHLORIDE 102 mmol/L (97-110); GLUCOSE 145 mg/dl (70-220); POTASSIUM 3.9 mmol/L (3.5-5.1); SODIUM 135 mmol/L (135-144)
[2018-01-06 08:18] LABS: ANISOCYTOSIS 1+ (0-0); BAND NEUTROPHILS #M 0.9 10^3/ul (0.0-0.6); BAND NEUTROPHILS % (M) 13 % (0-4); EOSINOPHILS % (M) 3 % (0-7); HYPOCHROMASIA 1+ (0-0); LYMPHOCYTES #M 0.2 10^3/ul (0.8-2.9); LYMPHOCYTES % (M) 3 % (15-51); MICROCYTOSIS 1+ (0-0); PLATELET ESTIMATE DECREASED; SEGMENTED NEUTROPHILS (M) % 81 % (39-77); SMUDGE%M 1 % (0-0)
[2018-01-06] MEDS: COLLAGENASE 5 GM (UD JAR) TOP ×2 (09:00→09:30)
[2018-01-06] MEDS: MEROPENEM 500MG/50 ML (PMX) 50 ML IVPB ×2 (09:31→20:58)
[2018-01-06] MEDS: FLUCONAZOLE 100 MG/50 ML (PMX) 50 ML IVPB (14:51)
[2018-01-06] MEDS: METOCLOPRAMIDE 10 MG INJ IV (17:15)
[2018-01-06] MEDS: INSULIN GLARGINE [LANtus] 3 ML PEN SC (20:57)
[2018-01-07] MEDS: METOCLOPRAMIDE 10 MG INJ IV ×4 (00:51→16:49)
[2018-01-07] MEDS: D5-NS + KCL 20 MEQ 1,000 ML IV ×3 (00:52→18:18)
[2018-01-07] MEDS: INSULIN ASPART [NOVOLOG] 3 ML PEN SC ×6 (00:54→20:48)
[2018-01-07] MEDS: LEVALBUTEROL (HFA) 15 GM INHALER INH ×4 (01:25→19:22)
[2018-01-07 05:20] LABS: ABNORMAL IP MESSAGE 1; HEMOGLOBIN 8.6 g/dl (14.0-18.0); MEAN CORPUSCULAR HEMOGLOBIN 26.4 pg (29.0-33.0); MEAN CORPUSCULAR HGB CONC 31.9 g/dl (32.0-37.0); MEAN CORPUSCULAR VOLUME 82.8 fl (82.0-101.0); PLATELET COUNT 78 10^3/UL (140-415); POSITIVE DIFF @See below; RED BLOOD COUNT 3.26 10^6/ul (4.70-6.10); RED CELL DISTRIBUTION WIDTH 21.3 % (11.5-14.5)
[2018-01-07 05:20] LABS: WHITE BLOOD COUNT 5.2 10^3/ul (4.8-10.8)
[2018-01-07 05:40] LABS: ALANINE AMINOTRANSFERASE 16 IU/L (13-69); ALBUMIN 1.9 g/dl (3.3-4.9); ALBUMIN/GLOBULIN RATIO 0.67; ALKALINE PHOSPHATASE 77 IU/L (42-121); ANION GAP 11 (8-16); ASPARTATE AMINO TRANSFERASE 22 IU/L (15-46); BILIRUBIN,INDIRECT 0.5 mg/dl (0-1.1); BILIRUBIN,TOTAL 0.5 mg/dl (0.2-1.3); BLOOD UREA NITROGEN 10 mg/dl (7-20); CALCIUM 7.3 mg/dl (8.4-10.2); CARBON DIOXIDE 25 mmol/L (21-31); CHLORIDE 100 mmol/L (97-110); CREATININE 0.31 mg/dl (0.61-1.24); GLUCOSE 124 mg/dl (70-220); SODIUM 132 mmol/L (135-144); TOTAL PROTEIN 4.7 g/dl (6.1-8.1)
[2018-01-07 05:48] LABS: ADD MAN DIFF? YES
[2018-01-07] MEDS: ACETAMINOPHEN 650 MG SUPP PR (05:51)
[2018-01-07] MEDS: Metronidazole 500 MG in NS 100 ML IVPB ×3 (05:51→22:18)
[2018-01-07] MEDS: PANTOPRAZOLE 40 MG INJ IV (05:51)
[2018-01-07] MEDS: VANCOMYCIN 750 MG in DEXTROSE 5% 150 ML IVPB ×2 (05:53→17:34)
[2018-01-07 07:10] LABS: ANISOCYTOSIS 1+ (0-0); BAND NEUTROPHILS #M 0.6 10^3/ul (0.0-0.6); BAND NEUTROPHILS % (M) 12 % (0-4); EOSINOPHILS % (M) 6 % (0-7); LYMPHOCYTES #M 0.1 10^3/ul (0.8-2.9); LYMPHOCYTES % (M) 3 % (15-51); MICROCYTOSIS 1+ (0-0); MONOCYTES % (M) 1 % (0-11); PLATELET ESTIMATE DECREASED; POLYCHROMASIA 1+ (0-0); SEG NEUT #M 4.1 10^3/ul (1.6-7.5); SEGMENTED NEUTROPHILS (M) % 78 % (39-77); SMUDGE%M 31 % (0-0); SPHEROCYTES 1+ (0-0)
[2018-01-07] MEDS: POLYETHYLENE GLYCOL 17 GM PACKET GTB (08:27)
[2018-01-07] MEDS: COLLAGENASE 5 GM (UD JAR) TOP (08:46)
[2018-01-07] MEDS: MEROPENEM 500MG/50 ML (PMX) 50 ML IVPB ×2 (08:46→20:49)
[2018-01-07] MEDS: SOD CHLORIDE 0.9% 100 ML (11:19)
[2018-01-07] MEDS: IODIXANOL LOCM 100 ML BTL (11:19)
[2018-01-07] MEDS: SOD CHLORIDE 0.9% 500 ML IV ×2 (12:50→14:18)
[2018-01-07] MEDS: FLUCONAZOLE 100 MG/50 ML (PMX) 50 ML IVPB (15:55)
[2018-01-07] MEDS: INSULIN GLARGINE [LANtus] 3 ML PEN SC (20:47)
[2018-01-08] MEDS: METOCLOPRAMIDE 10 MG INJ IV ×4 (00:58→17:22)
[2018-01-08] MEDS: INSULIN ASPART [NOVOLOG] 3 ML PEN SC ×6 (00:59→20:55)
[2018-01-08] MEDS: LEVALBUTEROL (HFA) 15 GM INHALER INH ×4 (01:14→20:12)
[2018-01-08 05:41] LABS: ADD MAN DIFF? NO
[2018-01-08 05:49] LABS: ABNORMAL IP MESSAGE 1; EOSINOPHILS # 0.2 10^3/ul (0.0-0.5); EOSINOPHILS % 3.9 % (0.0-7.0); HEMATOCRIT 24.2 % (42.0-52.0); HEMOGLOBIN 7.7 g/dl (14.0-18.0); LYMPHOCYTES # 0.4 10^3/ul (0.8-2.9); LYMPHOCYTES % 6.5 % (15.0-51.0); MEAN CORPUSCULAR HEMOGLOBIN 26.6 pg (29.0-33.0); MEAN CORPUSCULAR HGB CONC 31.8 g/dl (32.0-37.0); MEAN CORPUSCULAR VOLUME 83.7 fl (82.0-101.0); MEAN PLATELET VOLUME 10.3 fl (7.4-10.4); MONOCYTE # 0.2 10^3/ul (0.3-0.9); MONOCYTES % 3.4 % (0.0-11.0); NEUTROPHILS % 85.2 % (39.0-77.0); PLATELET COUNT 76 10^3/UL (140-415); POSITIVE DIFF @See below; RED BLOOD COUNT 2.89 10^6/ul (4.70-6.10); RED CELL DISTRIBUTION WIDTH 21.3 % (11.5-14.5)
[2018-01-08 05:49] LABS: WHITE BLOOD COUNT 5.9 10^3/ul (4.8-10.8)
[2018-01-08] MEDS: Metronidazole 500 MG in NS 100 ML IVPB ×3 (05:59→21:23)
[2018-01-08] MEDS: PANTOPRAZOLE 40 MG INJ IV (05:59)
[2018-01-08] MEDS: VANCOMYCIN 750 MG in DEXTROSE 5% 150 ML IVPB (05:59)
[2018-01-08 06:10] LABS: ANION GAP 9 (8-16); BLOOD UREA NITROGEN 11 mg/dl (7-20); CALCIUM 7.2 mg/dl (8.4-10.2); CARBON DIOXIDE 28 mmol/L (21-31); CHLORIDE 101 mmol/L (97-110); CREATININE 0.39 mg/dl (0.61-1.24); GLUCOSE 167 mg/dl (70-220); POTASSIUM 3.6 mmol/L (3.5-5.1); SODIUM 134 mmol/L (135-144)
[2018-01-08 06:30] LABS: VANCOMYCIN,TROUGH 9.8 ug/ml (10.0-20.0)
[2018-01-08] MEDS: MEROPENEM 500MG/50 ML (PMX) 50 ML IVPB ×2 (08:06→23:14)
[2018-01-08] MEDS: POLYETHYLENE GLYCOL 17 GM PACKET GTB (08:06)
[2018-01-08 08:24] LABS: ANISOCYTOSIS 1+ (0-0); BAND NEUTROPHILS #M 1.4 10^3/ul (0.0-0.6); BAND NEUTROPHILS % (M) 25 % (0-4); EOSINOPHILS % (M) 1 % (0-7); LYMPHOCYTES #M 0.2 10^3/ul (0.8-2.9); LYMPHOCYTES % (M) 4 % (15-51); MICROCYTOSIS 1+ (0-0); MONOCYTE #M 0.2 10^3/ul (0.3-0.9); MONOCYTES % (M) 4 % (0-11); PLATELET ESTIMATE DECREASED; POLYCHROMASIA 2+ (0-0); REACTIVE LYMPHOCYTES #M 0.1 10^3/ul (0.0-0.0); REACTIVE LYMPHOCYTES% (M) 2 % (0-0); SEG NEUT #M 3.9 10^3/ul (1.6-7.5); SEGMENTED NEUTROPHILS (M) % 64 % (39-77); SMUDGE%M 6 % (0-0)
[2018-01-08] MEDS: D5-NS + KCL 20 MEQ 1,000 ML IV (10:45)
[2018-01-08] MEDS: COLLAGENASE 5 GM (UD JAR) TOP (12:05)
[2018-01-08] MEDS: FLUCONAZOLE 100 MG/50 ML (PMX) 50 ML IVPB (17:27)
[2018-01-08] MEDS ORDERED: VANCOMYCIN 1 GM 250 ML IVPB (18:00)
[2018-01-08] MEDS: LINEZOLID 600 MG/D5W (PMX) 300 ML IVPB (20:42)
[2018-01-08] MEDS: ACETAMINOPHEN 650 MG SUPP PR (20:48)
[2018-01-08] MEDS: INSULIN GLARGINE [LANtus] 3 ML PEN SC ×2 (22:00→23:22)
[2018-01-08] MEDS: D5W-0.45 NACL + KCL 20 MEQ 1,000 ML IV (23:14)
[2018-01-09] MEDS: INSULIN ASPART [NOVOLOG] 3 ML PEN SC ×6 (00:19→20:13)
[2018-01-09] MEDS: METOCLOPRAMIDE 10 MG INJ IV ×4 (00:20→17:18)
[2018-01-09] MEDS: SOD CHLORIDE 0.9% 1,000 ML IV ×2 (01:20→02:24)
[2018-01-09] MEDS: LEVALBUTEROL (HFA) 15 GM INHALER INH ×4 (01:38→19:41)
[2018-01-09] MEDS: D5W-0.45 NACL + KCL 20 MEQ 1,000 ML IV (05:00)
[2018-01-09] MEDS: NORepinephrine 8MG/250 ML (PMX 250 ML IV ×2 (05:30→05:40)
[2018-01-09] MEDS: PANTOPRAZOLE 40 MG INJ IV (06:31)
[2018-01-09] MEDS: Metronidazole 500 MG in NS 100 ML IVPB ×3 (06:31→22:53)
[2018-01-09] MEDS: POLYETHYLENE GLYCOL 17 GM PACKET GTB (09:00)
[2018-01-09] MEDS: LINEZOLID 600 MG/D5W (PMX) 300 ML IVPB ×2 (09:05→21:04)
[2018-01-09] MEDS: COLLAGENASE 5 GM (UD JAR) TOP (09:05)
[2018-01-09] MEDS: MEROPENEM 500MG/50 ML (PMX) 50 ML IVPB ×2 (11:16→20:06)
[2018-01-09] MEDS: FLUCONAZOLE 100 MG/50 ML (PMX) 50 ML IVPB (14:11)
[2018-01-09] MEDS: INSULIN GLARGINE [LANtus] 3 ML PEN SC (20:12)
[2018-01-10] MEDS: METOCLOPRAMIDE 10 MG INJ IV ×4 (00:22→18:20)
[2018-01-10] MEDS: INSULIN ASPART [NOVOLOG] 3 ML PEN SC ×6 (00:28→20:51)
[2018-01-10] MEDS: D5W-0.45 NACL + KCL 20 MEQ 1,000 ML IV ×3 (00:40→20:49)
[2018-01-10] MEDS: LEVALBUTEROL (HFA) 15 GM INHALER INH ×4 (01:14→21:01)
[2018-01-10] MEDS: Metronidazole 500 MG in NS 100 ML IVPB (05:28)
[2018-01-10] MEDS: PANTOPRAZOLE 40 MG INJ IV (05:28)
[2018-01-10 06:00] LABS: WHITE BLOOD COUNT 4.3 10^3/ul (4.8-10.8)
[2018-01-10 06:00] LABS: ABNORMAL IP MESSAGE 1; HEMATOCRIT 23.9 % (42.0-52.0); HEMOGLOBIN 7.7 g/dl (14.0-18.0); MEAN CORPUSCULAR HGB CONC 32.2 g/dl (32.0-37.0); MEAN CORPUSCULAR VOLUME 83.9 fl (82.0-101.0); MEAN PLATELET VOLUME 10.1 fl (7.4-10.4); PLATELET COUNT 97 10^3/UL (140-415); POSITIVE DIFF @See below; RED BLOOD COUNT 2.85 10^6/ul (4.70-6.10); RED CELL DISTRIBUTION WIDTH 21.2 % (11.5-14.5)
[2018-01-10 06:03] LABS: ADD MAN DIFF? YES
[2018-01-10 06:26] LABS: ALANINE AMINOTRANSFERASE 22 IU/L (13-69); ALBUMIN 1.8 g/dl (3.3-4.9); ALBUMIN/GLOBULIN RATIO 0.66; ALKALINE PHOSPHATASE 91 IU/L (42-121); ANION GAP 9 (8-16); ASPARTATE AMINO TRANSFERASE 15 IU/L (15-46); BILIRUBIN,INDIRECT 0.2 mg/dl (0-1.1); BILIRUBIN,TOTAL 0.2 mg/dl (0.2-1.3); BLOOD UREA NITROGEN 9 mg/dl (7-20); CALCIUM 7.3 mg/dl (8.4-10.2); CARBON DIOXIDE 27 mmol/L (21-31); CHLORIDE 105 mmol/L (97-110); CREATININE 0.35 mg/dl (0.61-1.24); GLUCOSE 159 mg/dl (70-220); SODIUM 138 mmol/L (135-144); TOTAL PROTEIN 4.5 g/dl (6.1-8.1)
[2018-01-10 07:34] LABS: ANISOCYTOSIS 1+ (0-0); BAND NEUTROPHILS #M 0.9 10^3/ul (0.0-0.6); BAND NEUTROPHILS % (M) 23 % (0-4); EOSINOPHILS % (M) 7 % (0-7); HYPOCHROMASIA 1+ (0-0); LYMPHOCYTES #M 0.3 10^3/ul (0.8-2.9); LYMPHOCYTES % (M) 7 % (15-51); MICROCYTOSIS 1+ (0-0); MONOCYTES % (M) 1 % (0-11); OVALOCYTES 1+ (0-0); PLATELET ESTIMATE DECREASED; POLYCHROMASIA 1+ (0-0); SEG NEUT #M 2.7 10^3/ul (1.6-7.5); SEGMENTED NEUTROPHILS (M) % 62 % (39-77); SMUDGE%M 4 % (0-0); SPHEROCYTES 1+ (0-0)
[2018-01-10] MEDS: LINEZOLID 600 MG/D5W (PMX) 300 ML IVPB (08:58)
[2018-01-10] MEDS: MEROPENEM 500MG/50 ML (PMX) 50 ML IVPB (08:58)
[2018-01-10] MEDS: POLYETHYLENE GLYCOL 17 GM PACKET GTB (09:00)
[2018-01-10] MEDS: POTASSIUM CHLORIDE 20 MEQ POWDER FOR ORAL SOLN GTB (09:51)
[2018-01-10] MEDS: COLLAGENASE 5 GM (UD JAR) TOP (09:51)
[2018-01-10] MEDS ORDERED: AMIKACIN IV PER PHARMACY XX (13:00)
[2018-01-10 14:38] LABS: IMMEDIATE SPIN CROSSMATCH 1 2
[2018-01-10] MEDS: SOD CHLORIDE 0.9% 250 ML IV* (14:44)
[2018-01-10] MEDS: AMPICILLIN 1 GM/NS (PMX) 50 ML IVPB ×2 (15:58→21:03)
[2018-01-10] MEDS: AMIKACIN 500 MG in SOD CHLORIDE 0.9% 100 ML IVPB (16:52)
[2018-01-10] MEDS: INSULIN GLARGINE [LANtus] 3 ML PEN SC (20:50)
[2018-01-11] MEDS: INSULIN ASPART [NOVOLOG] 3 ML PEN SC ×6 (00:42→21:27)
[2018-01-11] MEDS: METOCLOPRAMIDE 10 MG INJ IV ×4 (00:42→18:33)
[2018-01-11] MEDS: LEVALBUTEROL (HFA) 15 GM INHALER INH ×4 (03:19→20:03)
[2018-01-11] MEDS: PANTOPRAZOLE 40 MG INJ IV (05:38)
[2018-01-11] MEDS: AMPICILLIN 1 GM/NS (PMX) 50 ML IVPB ×3 (05:38→21:34)
[2018-01-11 08:56] LABS: WHITE BLOOD COUNT 4.5 10^3/ul (4.8-10.8)
[2018-01-11 08:56] LABS: ABNORMAL IP MESSAGE 1; HEMATOCRIT 27.4 % (42.0-52.0); MEAN CORPUSCULAR HEMOGLOBIN 27.1 pg (29.0-33.0); MEAN CORPUSCULAR HGB CONC 32.8 g/dl (32.0-37.0); MEAN CORPUSCULAR VOLUME 82.5 fl (82.0-101.0); PLATELET COUNT 121 10^3/UL (140-415); POSITIVE DIFF @See below; RED BLOOD COUNT 3.32 10^6/ul (4.70-6.10); RED CELL DISTRIBUTION WIDTH 19.6 % (11.5-14.5)
[2018-01-11] MEDS: POLYETHYLENE GLYCOL 17 GM PACKET GTB (08:58)
[2018-01-11] MEDS: COLLAGENASE 5 GM (UD JAR) TOP (08:59)
[2018-01-11 09:02] LABS: ADD MAN DIFF? YES
[2018-01-11 09:12] LABS: MAGNESIUM 1.5 mg/dl (1.7-2.5)
[2018-01-11 09:24] LABS: ANION GAP 8 (8-16); BLOOD UREA NITROGEN 9 mg/dl (7-20); CALCIUM 7.4 mg/dl (8.4-10.2); CARBON DIOXIDE 27 mmol/L (21-31); CHLORIDE 103 mmol/L (97-110); CREATININE 0.33 mg/dl (0.61-1.24); GLUCOSE 128 mg/dl (70-220); POTASSIUM 3.8 mmol/L (3.5-5.1); SODIUM 134 mmol/L (135-144)
[2018-01-11 10:50] LABS: ANISOCYTOSIS 2+ (0-0); BAND NEUTROPHILS #M 0.8 10^3/ul (0.0-0.6); BAND NEUTROPHILS % (M) 19 % (0-4); EOSINOPHILS % (M) 3 % (0-7); LYMPHOCYTES #M 0.1 10^3/ul (0.8-2.9); LYMPHOCYTES % (M) 3 % (15-51); MICROCYTOSIS 2+ (0-0); MONOCYTE #M 0.1 10^3/ul (0.3-0.9); MONOCYTES % (M) 4 % (0-11); PLATELET ESTIMATE DECREASED; POIKILOCYTOSIS 1+ (0-0); POLYCHROMASIA 3+ (0-0); REACTIVE LYMPHOCYTES% (M) 2 % (0-0); SEG NEUT #M 3.1 10^3/ul (1.6-7.5); SEGMENTED NEUTROPHILS (M) % 69 % (39-77); SMUDGE%M 10 % (0-0)
[2018-01-11] MEDS: D5W-0.45 NACL + KCL 20 MEQ 1,000 ML IV ×2 (12:19→16:40)
[2018-01-11] MEDS: MAGNESIUM SULFATE 2 GM/50 ML 50 ML IVPB (13:47)
[2018-01-11] MEDS: AMIKACIN 500 MG in SOD CHLORIDE 0.9% 100 ML IVPB (18:06)
[2018-01-11] MEDS: INSULIN GLARGINE [LANtus] 3 ML PEN SC (21:30)
[2018-01-12] MEDS: INSULIN ASPART [NOVOLOG] 3 ML PEN SC ×6 (01:16→21:00)
[2018-01-12] MEDS: METOCLOPRAMIDE 10 MG INJ IV ×4 (01:19→16:52)
[2018-01-12] MEDS: LEVALBUTEROL (HFA) 15 GM INHALER INH ×4 (02:00→20:14)
[2018-01-12] MEDS: ACETAMINOPHEN 650MG/20.3ML CUP GTB ×2 (04:57→12:48)
[2018-01-12] MEDS: PANTOPRAZOLE 40 MG INJ IV (05:02)
[2018-01-12] MEDS: AMPICILLIN 1 GM/NS (PMX) 50 ML IVPB ×3 (05:02→21:09)
[2018-01-12] MEDS: D5W-0.45 NACL + KCL 20 MEQ 1,000 ML IV ×2 (05:47→21:09)
[2018-01-12] MEDS: POLYETHYLENE GLYCOL 17 GM PACKET GTB (08:39)
[2018-01-12] MEDS: COLLAGENASE 5 GM (UD JAR) TOP (08:40)
[2018-01-12 09:19] LABS: WHITE BLOOD COUNT 4.3 10^3/ul (4.8-10.8)
[2018-01-12 09:19] LABS: ABNORMAL IP MESSAGE 1; HEMATOCRIT 26.8 % (42.0-52.0); HEMOGLOBIN 8.7 g/dl (14.0-18.0); MEAN CORPUSCULAR HEMOGLOBIN 27.2 pg (29.0-33.0); MEAN CORPUSCULAR HGB CONC 32.5 g/dl (32.0-37.0); MEAN CORPUSCULAR VOLUME 83.8 fl (82.0-101.0); PLATELET COUNT 149 10^3/UL (140-415); POSITIVE DIFF @See below; RED CELL DISTRIBUTION WIDTH 19.9 % (11.5-14.5)
[2018-01-12 09:32] LABS: ADD MAN DIFF? YES; ANION GAP 5 (8-16); BLOOD UREA NITROGEN 9 mg/dl (7-20); CALCIUM 7.5 mg/dl (8.4-10.2); CARBON DIOXIDE 34 mmol/L (21-31); CHLORIDE 103 mmol/L (97-110); GLUCOSE 121 mg/dl (70-220); POTASSIUM 3.8 mmol/L (3.5-5.1); SODIUM 138 mmol/L (135-144)
[2018-01-12 10:01] LABS: ANISOCYTOSIS 2+ (0-0); BAND NEUTROPHILS #M 0.9 10^3/ul (0.0-0.6); BAND NEUTROPHILS % (M) 21 % (0-4); BASOPHILS % (M) 1 % (0-2); EOSINOPHILS % (M) 2 % (0-7); LYMPHOCYTES #M 0.3 10^3/ul (0.8-2.9); LYMPHOCYTES % (M) 7 % (15-51); MICROCYTOSIS 1+ (0-0); MONOCYTES % (M) 2 % (0-11); PLATELET ESTIMATE NORMAL; POLYCHROMASIA 3+ (0-0); REACTIVE LYMPHOCYTES% (M) 1 % (0-0); SEG NEUT #M 2.9 10^3/ul (1.6-7.5); SEGMENTED NEUTROPHILS (M) % 66 % (39-77); SMUDGE%M 10 % (0-0)
[2018-01-12] MEDS: AMIKACIN 500 MG in SOD CHLORIDE 0.9% 100 ML IVPB (16:42)
[2018-01-12] MEDS: INSULIN GLARGINE [LANtus] 3 ML PEN SC (21:12)
[2018-01-12 21:37] LABS: AMIKACIN PEAK 23.6 mg/L (20.0-30.0)
[2018-01-13] MEDS: INSULIN ASPART [NOVOLOG] 3 ML PEN SC ×6 (01:00→22:10)
[2018-01-13] MEDS: LEVALBUTEROL (HFA) 15 GM INHALER INH ×4 (01:31→20:14)
[2018-01-13] MEDS: PANTOPRAZOLE 40 MG INJ IV (05:52)
[2018-01-13] MEDS: METOCLOPRAMIDE 10 MG INJ IV ×4 (05:52→17:01)
[2018-01-13] MEDS: AMPICILLIN 1 GM/NS (PMX) 50 ML IVPB ×3 (06:19→21:50)
[2018-01-13] MEDS: D5W-0.45 NACL + KCL 20 MEQ 1,000 ML IV (08:40)
[2018-01-13] MEDS: ACETAMINOPHEN 650MG/20.3ML CUP GTB (09:10)
[2018-01-13] MEDS: POLYETHYLENE GLYCOL 17 GM PACKET GTB (09:10)
[2018-01-13] MEDS: COLLAGENASE 5 GM (UD JAR) TOP (09:21)
[2018-01-13 09:55] LABS: ADD MAN DIFF? NO
[2018-01-13 09:56] LABS: WHITE BLOOD COUNT 4.4 10^3/ul (4.8-10.8)
[2018-01-13 09:56] LABS: EOSINOPHILS % 5.9 % (0.0-7.0); HEMATOCRIT 27.6 % (42.0-52.0); LYMPHOCYTES # 0.5 10^3/ul (0.8-2.9); LYMPHOCYTES % 11.6 % (15.0-51.0); MEAN CORPUSCULAR HEMOGLOBIN 27.5 pg (29.0-33.0); MEAN CORPUSCULAR HGB CONC 32.6 g/dl (32.0-37.0); MEAN CORPUSCULAR VOLUME 84.4 fl (82.0-101.0); MEAN PLATELET VOLUME 9.8 fl (7.4-10.4); MONOCYTES % 10.9 % (0.0-11.0); NEUTROPHIL # 3.1 10^3/ul (1.6-7.5); PLATELET COUNT 169 10^3/UL (140-415); RED BLOOD COUNT 3.27 10^6/ul (4.70-6.10); RED CELL DISTRIBUTION WIDTH 19.8 % (11.5-14.5)
[2018-01-13 09:57] LABS: ABNORMAL IP MESSAGE 1; EOSINOPHILS # 0.3 10^3/ul (0.0-0.5); MONOCYTE # 0.5 10^3/ul (0.3-0.9); POSITIVE DIFF @See below
[2018-01-13 10:24] LABS: ANION GAP 9 (8-16); BLOOD UREA NITROGEN 11 mg/dl (7-20); CALCIUM 7.6 mg/dl (8.4-10.2); CARBON DIOXIDE 30 mmol/L (21-31); CHLORIDE 96 mmol/L (97-110); CREATININE 0.38 mg/dl (0.61-1.24); GLUCOSE 153 mg/dl (70-220); POTASSIUM 4.2 mmol/L (3.5-5.1); SODIUM 131 mmol/L (135-144)
[2018-01-13] MEDS: metroNIDAZOLE 500 MG TAB PO ×2 (13:10→21:50)
[2018-01-13] MEDS: BACITRACIN/POLYMYXIN 28.35 GM OINT TOP ×2 (13:11→21:51)
[2018-01-13] MEDS: VANCOMYCIN HCL 250 MG/5ML POSYG PO ×2 (13:11→17:01)
[2018-01-13] MEDS: AMIKACIN 500 MG in SOD CHLORIDE 0.9% 100 ML IVPB (17:01)
[2018-01-13] MEDS: INSULIN GLARGINE [LANtus] 3 ML PEN SC (22:09)
[2018-01-14] MEDS: METOCLOPRAMIDE 10 MG INJ IV ×4 (00:09→17:46)
[2018-01-14] MEDS: VANCOMYCIN HCL 250 MG/5ML POSYG PO ×4 (00:09→17:57)
[2018-01-14] MEDS: INSULIN ASPART [NOVOLOG] 3 ML PEN SC ×6 (00:46→20:12)
[2018-01-14] MEDS: LEVALBUTEROL (HFA) 15 GM INHALER INH ×4 (01:28→19:29)
[2018-01-14] MEDS: AMPICILLIN 1 GM/NS (PMX) 50 ML IVPB ×3 (05:55→21:50)
[2018-01-14] MEDS: D5W-0.45 NACL + KCL 20 MEQ 1,000 ML IV ×2 (05:55→11:20)
[2018-01-14] MEDS: PANTOPRAZOLE 40 MG INJ IV (05:56)
[2018-01-14] MEDS: metroNIDAZOLE 500 MG TAB PO ×3 (05:56→21:33)
[2018-01-14] MEDS: POLYETHYLENE GLYCOL 17 GM PACKET GTB (09:23)
[2018-01-14] MEDS: COLLAGENASE 5 GM (UD JAR) TOP (09:23)
[2018-01-14] MEDS: BACITRACIN/POLYMYXIN 28.35 GM OINT TOP ×2 (09:24→20:16)
[2018-01-14] MEDS: AMIKACIN 500 MG in SOD CHLORIDE 0.9% 100 ML IVPB (16:47)
[2018-01-14] MEDS ORDERED: GLUCOSE GEL 15 GRAM TUBE PO ×2 (17:00)
[2018-01-14] MEDS ORDERED: GLUCOSE GEL 15 GRAM TUBE BUCCAL (17:00)
[2018-01-14] MEDS ORDERED: DEXTROSE 50% 50 ML SYRINGE IV ×2 (17:00)
[2018-01-14] MEDS ORDERED: GLUCAGON 1 MG INJ IM (17:00)
[2018-01-14] MEDS ORDERED: (Nursing Note) XX (17:00)
[2018-01-14] MEDS ORDERED: HYDROCODONE/APAP (5/325) TAB PO (18:30)
[2018-01-14] MEDS ORDERED: ONDANSETRON 4 MG INJ IV (18:30)
[2018-01-14] MEDS: LORAZEPAM 2 MG INJ IV (20:08)
[2018-01-14] MEDS: INSULIN GLARGINE [LANtus] 3 ML PEN SC (20:12)
[2018-01-14 21:53] LABS: Allen Test ACCEPTAB; Arterial Base Excess 1.8 mmol/L (-3.0-3); Arterial COHb 0.3 % (0.0-3.0); Arterial Fraction of Oxyhgb 97.4 % (93.0-99.0); Arterial HCO3 25.8 mmol/L (22.0-26.0); Arterial MetHb 0.3 % (0.0-1.5); Arterial Total Hemglobin 9.8 g/dl (12.0-18.0); Arterial pCO2 37.7 mmhg (35-45); MODE VENT - PC; Site Right Radial
[2018-01-15] MEDS: VANCOMYCIN HCL 250 MG/5ML POSYG PO ×4 (00:42→17:19)
[2018-01-15] MEDS: METOCLOPRAMIDE 10 MG INJ IV ×4 (00:42→17:19)
[2018-01-15] MEDS: D5W-0.45 NACL + KCL 20 MEQ 1,000 ML IV ×2 (00:43→11:51)
[2018-01-15] MEDS: INSULIN ASPART [NOVOLOG] 3 ML PEN SC ×5 (01:27→17:22)
[2018-01-15] MEDS: LEVALBUTEROL (HFA) 15 GM INHALER INH ×4 (02:04→20:36)
[2018-01-15] MEDS: metroNIDAZOLE 500 MG TAB PO ×3 (05:41→22:58)
[2018-01-15] MEDS: AMPICILLIN 1 GM/NS (PMX) 50 ML IVPB ×3 (05:41→22:59)
[2018-01-15] MEDS: PANTOPRAZOLE 40 MG INJ IV (05:42)
[2018-01-15 08:26] LABS: ADD MAN DIFF? NO
[2018-01-15 08:31] LABS: WHITE BLOOD COUNT 4.5 10^3/ul (4.8-10.8)
[2018-01-15 08:31] LABS: ABNORMAL IP MESSAGE 1; EOSINOPHILS # 0.3 10^3/ul (0.0-0.5); EOSINOPHILS % 6.8 % (0.0-7.0); HEMATOCRIT 25.9 % (42.0-52.0); HEMOGLOBIN 8.3 g/dl (14.0-18.0); LYMPHOCYTES # 0.5 10^3/ul (0.8-2.9); LYMPHOCYTES % 11.5 % (15.0-51.0); MEAN CORPUSCULAR HEMOGLOBIN 27.2 pg (29.0-33.0); MEAN CORPUSCULAR VOLUME 84.9 fl (82.0-101.0); MEAN PLATELET VOLUME 9.6 fl (7.4-10.4); MONOCYTE # 0.6 10^3/ul (0.3-0.9); NEUTROPHIL # 3.1 10^3/ul (1.6-7.5); NEUTROPHILS % 67.4 % (39.0-77.0); PLATELET COUNT 233 10^3/UL (140-415); POSITIVE DIFF @See below; RED BLOOD COUNT 3.05 10^6/ul (4.70-6.10); RED CELL DISTRIBUTION WIDTH 19.9 % (11.5-14.5)
[2018-01-15 08:58] LABS: ANION GAP 10 (8-16); BLOOD UREA NITROGEN 12 mg/dl (7-20); CALCIUM 8.1 mg/dl (8.4-10.2); CARBON DIOXIDE 29 mmol/L (21-31); CHLORIDE 102 mmol/L (97-110); CREATININE 0.41 mg/dl (0.61-1.24); GLUCOSE 143 mg/dl (70-220); POTASSIUM 3.6 mmol/L (3.5-5.1); SODIUM 137 mmol/L (135-144)
[2018-01-15] MEDS: POLYETHYLENE GLYCOL 17 GM PACKET GTB (09:44)
[2018-01-15] MEDS: COLLAGENASE 5 GM (UD JAR) TOP (09:44)
[2018-01-15] MEDS: BACITRACIN/POLYMYXIN 28.35 GM OINT TOP ×2 (09:45→21:00)
[2018-01-15] MEDS: AMIKACIN 500 MG in SOD CHLORIDE 0.9% 100 ML IVPB (16:25)
[2018-01-15] MEDS: INSULIN GLARGINE [LANtus] 3 ML PEN SC (23:18)
[2018-01-16] MEDS: INSULIN ASPART [NOVOLOG] 3 ML PEN SC ×4 (01:29→17:42)
[2018-01-16] MEDS: METOCLOPRAMIDE 10 MG INJ IV ×4 (01:30→18:10)
[2018-01-16] MEDS: VANCOMYCIN HCL 250 MG/5ML POSYG PO ×4 (01:31→18:11)
[2018-01-16] MEDS: LEVALBUTEROL (HFA) 15 GM INHALER INH ×4 (01:45→20:26)
[2018-01-16] MEDS: D5W-0.45 NACL + KCL 20 MEQ 1,000 ML IV ×3 (03:17→23:14)
[2018-01-16] MEDS: PANTOPRAZOLE 40 MG INJ IV (06:14)
[2018-01-16] MEDS: metroNIDAZOLE 500 MG TAB PO ×3 (06:14→22:20)
[2018-01-16] MEDS: AMPICILLIN 1 GM/NS (PMX) 50 ML IVPB ×3 (06:39→22:20)
[2018-01-16] MEDS: COLLAGENASE 5 GM (UD JAR) TOP (09:12)
[2018-01-16] MEDS: BACITRACIN/POLYMYXIN 28.35 GM OINT TOP ×2 (09:12→20:50)
[2018-01-16] MEDS: POLYETHYLENE GLYCOL 17 GM PACKET GTB (09:12)
[2018-01-16] MEDS: LORAZEPAM 2 MG INJ IV (10:29)
[2018-01-16] MEDS: morphine 2 MG INJ IV ×3 (12:20→23:13)
[2018-01-16 13:00] LABS: AADO2 Arterial 245.5 mmHg (7.0-24.0); Allen Test ACCEPTAB; Arterial Base Excess 4.3 mmol/L (-3.0-3); Arterial Blood Gas Oxygen Sat 99.7 mmHG (95.0-100.0); Arterial COHb 0.3 % (0.0-3.0); Arterial Fraction of Oxyhgb 99.2 % (93.0-99.0); Arterial HCO3 28.4 mmol/L (22.0-26.0); Arterial MetHb 0.2 % (0.0-1.5); Arterial Total Hemglobin 8.8 g/dl (12.0-18.0); Arterial pCO2 40.4 mmhg (35-45); MODE VENT - PC; Site Right Radial
[2018-01-16] MEDS: AMIODARONE 150MG/D5W BOLUS 100 ML IV (13:08)
[2018-01-16 14:00] LABS: ADD MAN DIFF? NO
[2018-01-16 14:01] LABS: BASOPHILS % 0.2 % (0.0-2.0); EOSINOPHILS # 0.3 10^3/ul (0.0-0.5); EOSINOPHILS % 4.7 % (0.0-7.0); HEMATOCRIT 26.4 % (42.0-52.0); HEMOGLOBIN 8.6 g/dl (14.0-18.0); LYMPHOCYTES # 0.7 10^3/ul (0.8-2.9); LYMPHOCYTES % 12.3 % (15.0-51.0); MEAN CORPUSCULAR HEMOGLOBIN 27.3 pg (29.0-33.0); MEAN CORPUSCULAR HGB CONC 32.6 g/dl (32.0-37.0); MEAN CORPUSCULAR VOLUME 83.8 fl (82.0-101.0); MEAN PLATELET VOLUME 9.2 fl (7.4-10.4); MONOCYTE # 0.8 10^3/ul (0.3-0.9); MONOCYTES % 13.1 % (0.0-11.0); NEUTROPHILS % 67.3 % (39.0-77.0); PLATELET COUNT 313 10^3/UL (140-415); RED BLOOD COUNT 3.15 10^6/ul (4.70-6.10); RED CELL DISTRIBUTION WIDTH 19.6 % (11.5-14.5)
[2018-01-16 14:28] LABS: ALANINE AMINOTRANSFERASE 24 IU/L (13-69); ALBUMIN 2.4 g/dl (3.3-4.9); ALBUMIN/GLOBULIN RATIO 0.68; ALKALINE PHOSPHATASE 139 IU/L (42-121); ANION GAP 10 (8-16); ASPARTATE AMINO TRANSFERASE 22 IU/L (15-46); BILIRUBIN,INDIRECT 0.3 mg/dl (0-1.1); BILIRUBIN,TOTAL 0.3 mg/dl (0.2-1.3); BLOOD UREA NITROGEN 12 mg/dl (7-20); CALCIUM 8.2 mg/dl (8.4-10.2); CARBON DIOXIDE 28 mmol/L (21-31); CHLORIDE 97 mmol/L (97-110); GLUCOSE 171 mg/dl (70-220); POTASSIUM 4.1 mmol/L (3.5-5.1); SODIUM 131 mmol/L (135-144); TOTAL PROTEIN 5.9 g/dl (6.1-8.1)
[2018-01-16] MEDS: AMIKACIN 500 MG in SOD CHLORIDE 0.9% 100 ML IVPB (16:22)
[2018-01-16] MEDS: AMIODARONE 200 MG TAB NGT (20:49)
[2018-01-16] MEDS: INSULIN GLARGINE [LANtus] 3 ML PEN SC (21:08)
[2018-01-17] MEDS: METOCLOPRAMIDE 10 MG INJ IV ×5 (00:39→23:54)
[2018-01-17] MEDS: VANCOMYCIN HCL 250 MG/5ML POSYG PO ×5 (00:39→23:55)
[2018-01-17] MEDS: LEVALBUTEROL (HFA) 15 GM INHALER INH ×4 (01:36→19:14)
[2018-01-17] MEDS: LORAZEPAM 2 MG INJ IV ×2 (03:39→08:50)
[2018-01-17] MEDS: D5W-0.45 NACL + KCL 20 MEQ 1,000 ML IV ×2 (06:00→15:34)
[2018-01-17] MEDS: PANTOPRAZOLE 40 MG INJ IV (06:20)
[2018-01-17] MEDS: metroNIDAZOLE 500 MG TAB PO ×3 (06:21→21:33)
[2018-01-17] MEDS: AMPICILLIN 1 GM/NS (PMX) 50 ML IVPB ×3 (06:21→21:21)
[2018-01-17] MEDS: INSULIN ASPART [NOVOLOG] 3 ML PEN SC ×5 (06:42→23:55)
[2018-01-17] MEDS: COLLAGENASE 5 GM (UD JAR) TOP (08:50)
[2018-01-17] MEDS: BACITRACIN/POLYMYXIN 28.35 GM OINT TOP ×2 (08:51→21:04)
[2018-01-17] MEDS: AMIODARONE 200 MG TAB NGT ×2 (08:51→21:00)
[2018-01-17] MEDS: POLYETHYLENE GLYCOL 17 GM PACKET GTB (08:51)
[2018-01-17 09:44] LABS: ADD MAN DIFF? NO
[2018-01-17 09:53] LABS: WHITE BLOOD COUNT 7.2 10^3/ul (4.8-10.8)
[2018-01-17 09:53] LABS: BASOPHILS % 0.1 % (0.0-2.0); EOSINOPHILS # 0.4 10^3/ul (0.0-0.5); EOSINOPHILS % 6.1 % (0.0-7.0); HEMATOCRIT 25.4 % (42.0-52.0); HEMOGLOBIN 8.1 g/dl (14.0-18.0); LYMPHOCYTES % 13.4 % (15.0-51.0); MEAN CORPUSCULAR HEMOGLOBIN 27.1 pg (29.0-33.0); MEAN CORPUSCULAR HGB CONC 31.9 g/dl (32.0-37.0); MEAN CORPUSCULAR VOLUME 84.9 fl (82.0-101.0); MEAN PLATELET VOLUME 9.7 fl (7.4-10.4); MONOCYTES % 14.2 % (0.0-11.0); NEUTROPHIL # 4.6 10^3/ul (1.6-7.5); NEUTROPHILS % 63.2 % (39.0-77.0); PLATELET COUNT 363 10^3/UL (140-415); RED BLOOD COUNT 2.99 10^6/ul (4.70-6.10); RED CELL DISTRIBUTION WIDTH 19.8 % (11.5-14.5)
[2018-01-17 10:09] LABS: ANION GAP 4 (8-16); BLOOD UREA NITROGEN 12 mg/dl (7-20); CALCIUM 8.4 mg/dl (8.4-10.2); CARBON DIOXIDE 32 mmol/L (21-31); CHLORIDE 99 mmol/L (97-110); CREATININE 0.43 mg/dl (0.61-1.24); GLUCOSE 136 mg/dl (70-220); POTASSIUM 4.1 mmol/L (3.5-5.1); SODIUM 131 mmol/L (135-144)
[2018-01-17] MEDS ORDERED: PENDING SANTYL ORDER FOR WOUND CARE XX (10:30)
[2018-01-17] MEDS: morphine 2 MG INJ IV ×2 (15:17→23:54)
[2018-01-17] MEDS: *AMIKACIN TROUGH & PEAK XX (15:30)
[2018-01-17] MEDS: AMIKACIN 500 MG in SOD CHLORIDE 0.9% 100 ML IVPB (16:03)
[2018-01-17 20:22] LABS: AMIKACIN TROUGH <2.5 mg/L (4.0-8.0)
[2018-01-17] MEDS: INSULIN GLARGINE [LANtus] 3 ML PEN SC (21:23)
[2018-01-18] MEDS: LEVALBUTEROL (HFA) 15 GM INHALER INH ×4 (01:45→19:53)
[2018-01-18] MEDS: metroNIDAZOLE 500 MG TAB PO ×2 (05:22→14:00)
[2018-01-18] MEDS: VANCOMYCIN HCL 250 MG/5ML POSYG PO ×3 (05:22→17:49)
[2018-01-18] MEDS: PANTOPRAZOLE 40 MG INJ IV (05:30)
[2018-01-18] MEDS: AMPICILLIN 1 GM/NS (PMX) 50 ML IVPB ×3 (05:32→22:30)
[2018-01-18] MEDS: METOCLOPRAMIDE 10 MG INJ IV ×3 (05:59→18:13)
[2018-01-18] MEDS: INSULIN ASPART [NOVOLOG] 3 ML PEN SC ×3 (05:59→17:50)
[2018-01-18] MEDS: D5W-0.45 NACL + KCL 20 MEQ 1,000 ML IV (07:58)
[2018-01-18] MEDS: ALTEPLASE (CATHFLO) 2 MG INJ CATHETER (07:59)
[2018-01-18] MEDS: POLYETHYLENE GLYCOL 17 GM PACKET GTB (09:00)
[2018-01-18] MEDS: AMIODARONE 200 MG TAB NGT ×2 (09:00→21:00)
[2018-01-18] MEDS: COLLAGENASE 5 GM (UD JAR) TOP (09:25)
[2018-01-18] MEDS: BACITRACIN/POLYMYXIN 28.35 GM OINT TOP ×2 (09:25→21:00)
[2018-01-18 09:44] LABS: WHITE BLOOD COUNT 8.4 10^3/ul (4.8-10.8)
[2018-01-18 09:44] LABS: HEMATOCRIT 28.1 % (42.0-52.0); HEMOGLOBIN 8.7 g/dl (14.0-18.0); MEAN CORPUSCULAR HEMOGLOBIN 26.7 pg (29.0-33.0); MEAN CORPUSCULAR VOLUME 86.2 fl (82.0-101.0); MEAN PLATELET VOLUME 9.3 fl (7.4-10.4); PLATELET COUNT 480 10^3/UL (140-415); POSITIVE DIFF @See below; RED BLOOD COUNT 3.26 10^6/ul (4.70-6.10)
[2018-01-18 09:50] LABS: ADD MAN DIFF? YES
[2018-01-18 10:01] LABS: ANION GAP 8 (8-16); BLOOD UREA NITROGEN 8 mg/dl (7-20); CALCIUM 8.3 mg/dl (8.4-10.2); CARBON DIOXIDE 28 mmol/L (21-31); CHLORIDE 101 mmol/L (97-110); CREATININE 0.39 mg/dl (0.61-1.24); GLUCOSE 76 mg/dl (70-220); POTASSIUM 4.2 mmol/L (3.5-5.1); SODIUM 133 mmol/L (135-144)
[2018-01-18 10:33] LABS: ANISOCYTOSIS 1+ (0-0); BAND NEUTROPHILS #M 1.6 10^3/ul (0.0-0.6); BAND NEUTROPHILS % (M) 20 % (0-4); BURR CELLS 1+ (0-0); EOSINOPHILS % (M) 9 % (0-7); GIANT THROMBO% (M) 1 % (0-0); HYPOCHROMASIA 1+ (0-0); LYMPHOCYTES #M 0.7 10^3/ul (0.8-2.9); LYMPHOCYTES % (M) 9 % (15-51); METAMYELOCYTES %M 1 % (0-0); MONOCYTE #M 1.5 10^3/ul (0.3-0.9); MONOCYTES % (M) 18 % (0-11); PLATELET ESTIMATE INCREASED; POLYCHROMASIA 1+ (0-0); REACTIVE LYMPHOCYTES% (M) 1 % (0-0); SEG NEUT #M 3.6 10^3/ul (1.6-7.5); SEGMENTED NEUTROPHILS (M) % 41 % (39-77); SMUDGE%M 5 % (0-0)
[2018-01-18] MEDS: D5-NS + KCL 20 MEQ 1,000 ML IV (15:23)
[2018-01-18] MEDS: AMIKACIN 500 MG in SOD CHLORIDE 0.9% 100 ML IVPB (16:26)
[2018-01-18] MEDS: [UNRECOGNIZED DRUG - REMARK] XX (17:00)
[2018-01-18] MEDS ORDERED: VANCOMYCIN IV PER PHARMACY XX (20:30)
[2018-01-18] MEDS: VANCOMYCIN 1 GM 250 ML IVPB (22:00)
[2018-01-18] MEDS: metroNIDAZOLE 500 MG/NS (PMX) 100 ML IVPB (22:41)
[2018-01-18] MEDS: INSULIN GLARGINE [LANtus] 3 ML PEN SC (22:56)
[2018-01-19] MEDS: METOCLOPRAMIDE 10 MG INJ IV ×5 (00:43→23:41)
[2018-01-19] MEDS: [UNRECOGNIZED DRUG - REMARK] XX ×3 (01:00→17:00)
[2018-01-19] MEDS: VANCOMYCIN 1 GM 250 ML IVPB ×2 (01:11→10:12)
[2018-01-19] MEDS: LEVALBUTEROL (HFA) 15 GM INHALER INH ×4 (02:16→20:57)
[2018-01-19] MEDS: LORAZEPAM 2 MG INJ IV (05:04)
[2018-01-19] MEDS: AMPICILLIN 1 GM/NS (PMX) 50 ML IVPB ×2 (05:37→14:34)
[2018-01-19] MEDS: PANTOPRAZOLE 40 MG INJ IV (05:38)
[2018-01-19] MEDS: D5-NS + KCL 20 MEQ 1,000 ML IV ×2 (05:39→15:29)
[2018-01-19] MEDS: metroNIDAZOLE 500 MG/NS (PMX) 100 ML IVPB ×3 (06:00→21:54)
[2018-01-19] MEDS: INSULIN ASPART [NOVOLOG] 3 ML PEN SC ×4 (06:00→18:00)
[2018-01-19] MEDS: VANCOMYCIN HCL 250 MG/5ML POSYG PO ×3 (06:00→12:00)
[2018-01-19] MEDS ORDERED: SOD CHLORIDE 0.9% 500 ML IV (06:30)
[2018-01-19 06:42] LABS: WHITE BLOOD COUNT 9.6 10^3/ul (4.8-10.8)
[2018-01-19 06:42] LABS: HEMATOCRIT 29.7 % (42.0-52.0); HEMOGLOBIN 9.5 g/dl (14.0-18.0); MEAN CORPUSCULAR HEMOGLOBIN 27.7 pg (29.0-33.0); MEAN CORPUSCULAR VOLUME 86.6 fl (82.0-101.0); PLATELET COUNT 598 10^3/UL (140-415); POSITIVE DIFF @See below; RED BLOOD COUNT 3.43 10^6/ul (4.70-6.10); RED CELL DISTRIBUTION WIDTH 19.9 % (11.5-14.5)
[2018-01-19 06:44] LABS: ADD MAN DIFF? YES
[2018-01-19 06:57] LABS: TRIGLYCERIDES 140 mg/dl (0-149)
[2018-01-19] MEDS: SOD CHLORIDE 0.9% 1,000 ML IV (06:57)
[2018-01-19 06:58] LABS: ANION GAP 10 (8-16); BLOOD UREA NITROGEN 6 mg/dl (7-20); CALCIUM 8.3 mg/dl (8.4-10.2); CARBON DIOXIDE 26 mmol/L (21-31); CHLORIDE 105 mmol/L (97-110); CREATININE 0.49 mg/dl (0.61-1.24); GLUCOSE 135 mg/dl (70-220); POTASSIUM 3.8 mmol/L (3.5-5.1); SODIUM 137 mmol/L (135-144)
[2018-01-19 08:05] LABS: AADO2 Arterial 85.3 mmHg (7.0-24.0); Allen Test ACCEPTAB; Arterial Base Excess 0.4 mmol/L (-3.0-3); Arterial Blood Gas Oxygen Sat 95.5 mmHG (95.0-100.0); Arterial COHb 0.3 % (0.0-3.0); Arterial Fraction of Oxyhgb 94.9 % (93.0-99.0); Arterial HCO3 24.3 mmol/L (22.0-26.0); Arterial MetHb 0.3 % (0.0-1.5); Arterial Total Hemglobin 10.4 g/dl (12.0-18.0); Arterial pCO2 36.5 mmhg (35-45); MODE VENT - AC; Site Right Radial
[2018-01-19] MEDS: AMIODARONE 200 MG TAB NGT ×2 (08:07→21:00)
[2018-01-19] MEDS: POLYETHYLENE GLYCOL 17 GM PACKET GTB (08:07)
[2018-01-19 08:48] LABS: ANISOCYTOSIS 1+ (0-0); BAND NEUTROPHILS #M 2.9 10^3/ul (0.0-0.6); BAND NEUTROPHILS % (M) 31 % (0-4); EOSINOPHILS % (M) 9 % (0-7); HYPOCHROMASIA 2+ (0-0); LYMPHOCYTES #M 0.7 10^3/ul (0.8-2.9); LYMPHOCYTES % (M) 8 % (15-51); MICROCYTOSIS 1+ (0-0); MONOCYTE #M 0.5 10^3/ul (0.3-0.9); MONOCYTES % (M) 6 % (0-11); MYELOCYTES #M 0.1 10^3/ul (0.0-0.0); MYELOCYTES % (M) 2 % (0-0); PLATELET ESTIMATE INCREASED; POLYCHROMASIA 1+ (0-0); REACTIVE LYMPHOCYTES% (M) 1 % (0-0); SEG NEUT #M 4.4 10^3/ul (1.6-7.5); SEGMENTED NEUTROPHILS (M) % 43 % (39-77); SMUDGE%M 9 % (0-0)
[2018-01-19] MEDS: COLLAGENASE 5 GM (UD JAR) TOP (08:56)
[2018-01-19] MEDS: BACITRACIN/POLYMYXIN 28.35 GM OINT TOP ×2 (08:56→21:13)
[2018-01-19] MEDS: AMIKACIN 500 MG in SOD CHLORIDE 0.9% 100 ML IVPB (17:13)
[2018-01-19] MEDS ORDERED: TPN 1,000 ML IV (17:39)
[2018-01-19] MEDS ORDERED: INSULIN GLARGINE [LANtus] 3 ML PEN SC (20:00)
[2018-01-19 20:19] LABS: ALANINE AMINOTRANSFERASE 18 IU/L (13-69); ALBUMIN 2.2 g/dl (3.3-4.9); ALBUMIN/GLOBULIN RATIO 0.59; ALKALINE PHOSPHATASE 113 IU/L (42-121); ANION GAP 8 (8-16); ASPARTATE AMINO TRANSFERASE 21 IU/L (15-46); BILIRUBIN,INDIRECT 0.3 mg/dl (0-1.1); BILIRUBIN,TOTAL 0.3 mg/dl (0.2-1.3); BLOOD UREA NITROGEN 5 mg/dl (7-20); CALCIUM 8.2 mg/dl (8.4-10.2); CARBON DIOXIDE 28 mmol/L (21-31); CHLORIDE 110 mmol/L (97-110); CREATININE 0.46 mg/dl (0.61-1.24); GLUCOSE 118 mg/dl (70-220); MAGNESIUM 1.7 mg/dl (1.7-2.5); PHOSPHORUS 5.2 mg/dl (2.5-4.9); POTASSIUM 3.4 mmol/L (3.5-5.1); SODIUM 143 mmol/L (135-144); TOTAL PROTEIN 5.9 g/dl (6.1-8.1); TRIGLYCERIDES 132 mg/dl (0-149)
[2018-01-19 20:26] LABS: PREALBUMIN 4.7 mg/dl (17.6-36.0)
[2018-01-19] MEDS: ACCU-CHEK XX (21:00)
[2018-01-19] MEDS: INSULIN GLARGINE [LANtus] 3 ML PEN SC (21:30)
[2018-01-20] MEDS: [UNRECOGNIZED DRUG - REMARK] XX ×4 (01:00→22:00)
[2018-01-20] MEDS: ACCU-CHEK XX ×6 (01:00→21:00)
[2018-01-20] MEDS: LEVALBUTEROL (HFA) 15 GM INHALER INH ×4 (01:46→20:00)
[2018-01-20] MEDS: D5-NS + KCL 20 MEQ 1,000 ML IV ×2 (05:00→12:31)
[2018-01-20] MEDS: METOCLOPRAMIDE 10 MG INJ IV ×3 (05:30→18:02)
[2018-01-20] MEDS: PANTOPRAZOLE 40 MG INJ IV (05:30)
[2018-01-20] MEDS: INSULIN ASPART [NOVOLOG] 3 ML PEN SC ×4 (05:30→18:00)
[2018-01-20] MEDS: metroNIDAZOLE 500 MG/NS (PMX) 100 ML IVPB ×3 (05:30→23:28)
[2018-01-20] MEDS: COLLAGENASE 5 GM (UD JAR) TOP (08:12)
[2018-01-20] MEDS: BACITRACIN/POLYMYXIN 28.35 GM OINT TOP ×2 (08:12→21:06)
[2018-01-20] MEDS: POLYETHYLENE GLYCOL 17 GM PACKET GTB (08:13)
[2018-01-20] MEDS: AMIODARONE 200 MG TAB NGT ×2 (08:13→21:00)
[2018-01-20 10:01] LABS: ADD MAN DIFF? NO
[2018-01-20 10:02] LABS: WHITE BLOOD COUNT 8.5 10^3/ul (4.8-10.8)
[2018-01-20 10:02] LABS: BASOPHILS % 0.5 % (0.0-2.0); EOSINOPHILS # 0.7 10^3/ul (0.0-0.5); EOSINOPHILS % 8.2 % (0.0-7.0); HEMATOCRIT 30.1 % (42.0-52.0); HEMOGLOBIN 9.5 g/dl (14.0-18.0); LYMPHOCYTES # 1.2 10^3/ul (0.8-2.9); LYMPHOCYTES % 14.3 % (15.0-51.0); MEAN CORPUSCULAR HEMOGLOBIN 27.4 pg (29.0-33.0); MEAN CORPUSCULAR HGB CONC 31.6 g/dl (32.0-37.0); MEAN CORPUSCULAR VOLUME 86.7 fl (82.0-101.0); MEAN PLATELET VOLUME 8.8 fl (7.4-10.4); MONOCYTE # 1.3 10^3/ul (0.3-0.9); NEUTROPHIL # 4.9 10^3/ul (1.6-7.5); NEUTROPHILS % 57.1 % (39.0-77.0); POSITIVE DIFF @See below; RED BLOOD COUNT 3.47 10^6/ul (4.70-6.10); RED CELL DISTRIBUTION WIDTH 19.9 % (11.5-14.5)
[2018-01-20 10:06] LABS: MONOCYTES % 15.7 % (0.0-11.0); PLATELET COUNT 739 10^3/UL (140-415)
[2018-01-20 10:24] LABS: ANION GAP 7 (8-16); BLOOD UREA NITROGEN 4 mg/dl (7-20); CARBON DIOXIDE 28 mmol/L (21-31); CHLORIDE 113 mmol/L (97-110); CREATININE 0.46 mg/dl (0.61-1.24); GLUCOSE 114 mg/dl (70-220); POTASSIUM 3.3 mmol/L (3.5-5.1); SODIUM 145 mmol/L (135-144)
[2018-01-20 10:25] LABS: MAGNESIUM 1.6 mg/dl (1.7-2.5)
[2018-01-20 10:25] LABS: PHOSPHORUS 4.6 mg/dl (2.5-4.9)
[2018-01-20 10:52] LABS: ANISOCYTOSIS 1+ (0-0); BAND NEUTROPHILS #M 0.7 10^3/ul (0.0-0.6); BAND NEUTROPHILS % (M) 9 % (0-4); EOSINOPHILS % (M) 12 % (0-7); LYMPHOCYTES #M 0.3 10^3/ul (0.8-2.9); LYMPHOCYTES % (M) 4 % (15-51); MICROCYTOSIS 1+ (0-0); MONOCYTE #M 1.5 10^3/ul (0.3-0.9); MONOCYTES % (M) 18 % (0-11); MYELOCYTES % (M) 1 % (0-0); PLATELET ESTIMATE INCREASED; POLYCHROMASIA 3+ (0-0); REACTIVE LYMPHOCYTES% (M) 1 % (0-0); SEG NEUT #M 4.7 10^3/ul (1.6-7.5); SEGMENTED NEUTROPHILS (M) % 55 % (39-77); SMUDGE%M 8 % (0-0)
[2018-01-20] MEDS ORDERED: POTASSIUM CHLORIDE 50 ML IVPB (19:00)
[2018-01-20] MEDS: POTASSIUM CHLORIDE 20 MEQ /SW 100 ML IVPB (21:11)
[2018-01-20] MEDS: INSULIN GLARGINE [LANtus] 3 ML PEN SC (21:17)
[2018-01-20 23:55] LABS: AADO2 Arterial 75.8 mmHg (7.0-24.0); Allen Test ACCEPTAB; Arterial Base Excess -3.3 mmol/L (-3.0-3); Arterial Blood Gas Oxygen Sat 88.8 mmHG (95.0-100.0); Arterial COHb 0 % (0.0-3.0); Arterial Fraction of Oxyhgb 88.5 % (93.0-99.0); Arterial HCO3 24.6 mmol/L (22.0-26.0); Arterial MetHb 0.3 % (0.0-1.5); Arterial Total Hemglobin 10.7 g/dl (12.0-18.0); MODE VENT - AC; Site Right Radial
[2018-01-21] MEDS ORDERED: DILTIAZEM-D5W 125MG/125ML DRIP 125 ML IV (00:30)
[2018-01-21] MEDS: METOCLOPRAMIDE 10 MG INJ IV ×4 (00:37→17:32)
[2018-01-21] MEDS: TPN 1,000 ML IV ×2 (00:38→16:29)
[2018-01-21] MEDS: ACCU-CHEK XX ×6 (01:00→21:34)
[2018-01-21] MEDS: LORAZEPAM 2 MG INJ IV (01:02)
[2018-01-21] MEDS: LEVALBUTEROL (HFA) 15 GM INHALER INH ×4 (01:48→19:35)
[2018-01-21] MEDS: [UNRECOGNIZED DRUG - REMARK] XX ×3 (06:00→22:00)
[2018-01-21] MEDS: metroNIDAZOLE 500 MG/NS (PMX) 100 ML IVPB ×3 (06:03→21:32)
[2018-01-21] MEDS: PANTOPRAZOLE 40 MG INJ IV (06:13)
[2018-01-21] MEDS: INSULIN ASPART [NOVOLOG] 3 ML PEN SC ×4 (06:23→17:38)
[2018-01-21 06:50] LABS: ADD MAN DIFF? NO
[2018-01-21 07:06] LABS: WHITE BLOOD COUNT 9.7 10^3/ul (4.8-10.8)
[2018-01-21 07:06] LABS: BASOPHILS % 0.3 % (0.0-2.0); EOSINOPHILS # 0.1 10^3/ul (0.0-0.5); EOSINOPHILS % 0.6 % (0.0-7.0); HEMATOCRIT 25.9 % (42.0-52.0); HEMOGLOBIN 8.4 g/dl (14.0-18.0); LYMPHOCYTES # 1.1 10^3/ul (0.8-2.9); LYMPHOCYTES % 11.6 % (15.0-51.0); MEAN CORPUSCULAR HEMOGLOBIN 29.3 pg (29.0-33.0); MEAN CORPUSCULAR HGB CONC 32.4 g/dl (32.0-37.0); MEAN CORPUSCULAR VOLUME 90.2 fl (82.0-101.0); MEAN PLATELET VOLUME 8.9 fl (7.4-10.4); MONOCYTES % 10.2 % (0.0-11.0); NEUTROPHILS % 72.6 % (39.0-77.0); NUCLEATED RED BLOOD CELLS% 0.2 /100WBC (0.0-0.0); RED BLOOD COUNT 2.87 10^6/ul (4.70-6.10); RED CELL DISTRIBUTION WIDTH 19.8 % (11.5-14.5)
[2018-01-21 07:12] LABS: PLATELET COUNT 703 10^3/UL (140-415)
[2018-01-21 07:20] LABS: MAGNESIUM 1.7 mg/dl (1.7-2.5)
[2018-01-21 07:24] LABS: TRIGLYCERIDES 131 mg/dl (0-149)
[2018-01-21 07:36] LABS: ANION GAP 7 (8-16); BLOOD UREA NITROGEN 8 mg/dl (7-20); CALCIUM 8.4 mg/dl (8.4-10.2); CARBON DIOXIDE 25 mmol/L (21-31); CHLORIDE 116 mmol/L (97-110); CREATININE 0.48 mg/dl (0.61-1.24); GLUCOSE 185 mg/dl (70-220); POTASSIUM 4.6 mmol/L (3.5-5.1); SODIUM 143 mmol/L (135-144)
[2018-01-21 08:46] LABS: PREALBUMIN 4.7 mg/dl (17.6-36.0)
[2018-01-21] MEDS: POLYETHYLENE GLYCOL 17 GM PACKET GTB (09:00)
[2018-01-21] MEDS: AMIODARONE 200 MG TAB NGT ×2 (09:00→21:34)
[2018-01-21] MEDS: COLLAGENASE 5 GM (UD JAR) TOP (09:13)
[2018-01-21] MEDS: BACITRACIN/POLYMYXIN 28.35 GM OINT TOP ×2 (09:13→21:32)
[2018-01-21 10:23] LABS: AADO2 Arterial 68.4 mmHg (7.0-24.0); Allen Test ACCEPTAB; Arterial Blood Gas Oxygen Sat 97.6 mmHG (95.0-100.0); Arterial COHb 0.3 % (0.0-3.0); Arterial Fraction of Oxyhgb 97.1 % (93.0-99.0); Arterial HCO3 24.5 mmol/L (22.0-26.0); Arterial MetHb 0.2 % (0.0-1.5); Arterial pCO2 34.5 mmhg (35-45); MODE VENT - AC; Site Right Radial
[2018-01-21] MEDS: BALSAM PERU/CASTOR OIL 60 GM TUBE TOP ×2 (12:31→21:35)
[2018-01-21] MEDS: FAT EMULSION 20% 250 ML IV (16:29)
[2018-01-21] MEDS: INSULIN GLARGINE [LANtus] 3 ML PEN SC (21:47)
[2018-01-22] MEDS: METOCLOPRAMIDE 10 MG INJ IV ×4 (00:29→18:20)
[2018-01-22] MEDS: INSULIN ASPART [NOVOLOG] 3 ML PEN SC ×4 (00:40→18:24)
[2018-01-22] MEDS: ACCU-CHEK XX ×6 (01:40→20:23)
[2018-01-22] MEDS: LEVALBUTEROL (HFA) 15 GM INHALER INH ×4 (03:14→19:19)
[2018-01-22] MEDS: TPN 1,000 ML IV ×2 (05:10→18:14)
[2018-01-22] MEDS: PANTOPRAZOLE 40 MG INJ IV (05:12)
[2018-01-22] MEDS: metroNIDAZOLE 500 MG/NS (PMX) 100 ML IVPB ×3 (05:20→22:42)
[2018-01-22] MEDS: [UNRECOGNIZED DRUG - REMARK] XX (05:21)
[2018-01-22 06:51] LABS: ADD MAN DIFF? NO
[2018-01-22 06:56] LABS: ABNORMAL IP MESSAGE 1; BASOPHIL # 0.1 10^3/ul (0.0-0.1); BASOPHILS % 0.5 % (0.0-2.0); EOSINOPHILS # 1.1 10^3/ul (0.0-0.5); EOSINOPHILS % 10.5 % (0.0-7.0); HEMATOCRIT 27.4 % (42.0-52.0); HEMOGLOBIN 8.7 g/dl (14.0-18.0); LYMPHOCYTES # 1.2 10^3/ul (0.8-2.9); LYMPHOCYTES % 11.4 % (15.0-51.0); MEAN CORPUSCULAR HEMOGLOBIN 27.8 pg (29.0-33.0); MEAN CORPUSCULAR HGB CONC 31.8 g/dl (32.0-37.0); MEAN CORPUSCULAR VOLUME 87.5 fl (82.0-101.0); MEAN PLATELET VOLUME 8.6 fl (7.4-10.4); MONOCYTE # 1.1 10^3/ul (0.3-0.9); MONOCYTES % 10.5 % (0.0-11.0); NEUTROPHIL # 5.7 10^3/ul (1.6-7.5); NEUTROPHILS % 55.6 % (39.0-77.0); NUCLEATED RED BLOOD CELLS # 0.1 10^3/ul (0.0-0.0); NUCLEATED RED BLOOD CELLS% 0.5 /100WBC (0.0-0.0); PLATELET COUNT 678 10^3/UL (140-415); POSITIVE DIFF @See below; RED BLOOD COUNT 3.13 10^6/ul (4.70-6.10); RED CELL DISTRIBUTION WIDTH 19.9 % (11.5-14.5)
[2018-01-22 06:56] LABS: WHITE BLOOD COUNT 10.2 10^3/ul (4.8-10.8)
[2018-01-22 07:30] LABS: PHOSPHORUS 2.7 mg/dl (2.5-4.9)
[2018-01-22 07:30] LABS: ANION GAP 9 (8-16); BLOOD UREA NITROGEN 12 mg/dl (7-20); CALCIUM 8.4 mg/dl (8.4-10.2); CARBON DIOXIDE 27 mmol/L (21-31); CHLORIDE 107 mmol/L (97-110); CREATININE 0.46 mg/dl (0.61-1.24); GLUCOSE 196 mg/dl (70-220); MAGNESIUM 1.8 mg/dl (1.7-2.5); POTASSIUM 3.8 mmol/L (3.5-5.1); SODIUM 139 mmol/L (135-144)
[2018-01-22] MEDS: BACITRACIN/POLYMYXIN 28.35 GM OINT TOP ×2 (09:00→20:23)
[2018-01-22] MEDS: POLYETHYLENE GLYCOL 17 GM PACKET GTB (09:00)
[2018-01-22] MEDS: BALSAM PERU/CASTOR OIL 60 GM TUBE TOP ×2 (09:00→20:23)
[2018-01-22] MEDS: COLLAGENASE 5 GM (UD JAR) TOP (09:00)
[2018-01-22] MEDS: AMIODARONE 200 MG TAB NGT ×2 (09:00→20:13)
[2018-01-22] MEDS: LORAZEPAM 2 MG INJ IV (18:44)
[2018-01-22] MEDS: morphine 2 MG INJ IV (18:53)
[2018-01-22] MEDS: INSULIN GLARGINE [LANtus] 3 ML PEN SC (20:27)
[2018-01-23] MEDS: METOCLOPRAMIDE 10 MG INJ IV ×4 (00:18→17:58)
[2018-01-23] MEDS: INSULIN ASPART [NOVOLOG] 3 ML PEN SC ×4 (00:23→18:02)
[2018-01-23] MEDS: ACCU-CHEK XX ×6 (00:24→20:59)
[2018-01-23] MEDS: LEVALBUTEROL (HFA) 15 GM INHALER INH ×4 (01:21→20:07)
[2018-01-23] MEDS: metroNIDAZOLE 500 MG/NS (PMX) 100 ML IVPB ×3 (05:06→22:07)
[2018-01-23] MEDS: PANTOPRAZOLE 40 MG INJ IV (05:08)
[2018-01-23] MEDS: TPN 1,000 ML IV ×2 (05:49→17:57)
[2018-01-23 06:55] LABS: ABNORMAL IP MESSAGE 1; HEMATOCRIT 24.1 % (42.0-52.0); HEMOGLOBIN 8.3 g/dl (14.0-18.0); MEAN CORPUSCULAR HEMOGLOBIN 30.4 pg (29.0-33.0); MEAN CORPUSCULAR HGB CONC 34.4 g/dl (32.0-37.0); MEAN CORPUSCULAR VOLUME 88.3 fl (82.0-101.0); MEAN PLATELET VOLUME 8.8 fl (7.4-10.4); NUCLEATED RED BLOOD CELLS% 0.8 /100WBC (0.0-0.0); PLATELET COUNT 582 10^3/UL (140-415); POSITIVE DIFF @See below; RED BLOOD COUNT 2.73 10^6/ul (4.70-6.10)
[2018-01-23 06:55] LABS: WHITE BLOOD COUNT 12.6 10^3/ul (4.8-10.8)
[2018-01-23 07:01] LABS: ADD MAN DIFF? YES
[2018-01-23 07:31] LABS: ANION GAP 11 (8-16); BLOOD UREA NITROGEN 14 mg/dl (7-20); CALCIUM 8.1 mg/dl (8.4-10.2); CARBON DIOXIDE 27 mmol/L (21-31); CHLORIDE 101 mmol/L (97-110); CREATININE 0.48 mg/dl (0.61-1.24); GLUCOSE 163 mg/dl (70-220); POTASSIUM 4.2 mmol/L (3.5-5.1); SODIUM 135 mmol/L (135-144)
[2018-01-23 07:45] LABS: FREE T4 (FREE THYROXINE) 1.76 ng/dl (0.85-1.93)
[2018-01-23] MEDS: POLYETHYLENE GLYCOL 17 GM PACKET GTB (09:00)
[2018-01-23] MEDS: AMIODARONE 200 MG TAB NGT ×2 (09:00→20:58)
[2018-01-23 09:07] LABS: THYROID STIMULATING HORMONE 0.837 MIU/L (0.465-4.680)
[2018-01-23 09:35] LABS: ANISOCYTOSIS 2+ (0-0); BAND NEUTROPHILS #M 0.2 10^3/ul (0.0-0.6); BAND NEUTROPHILS % (M) 2 % (0-4); EOSINOPHILS % (M) 12 % (0-7); ERYTHROBLAST% (NRBC) (M) 3 % (0-0); LYMPHOCYTES #M 1.7 10^3/ul (0.8-2.9); LYMPHOCYTES % (M) 14 % (15-51); METAMYELOCYTES #M 0.2 10^3/ul (0.0-0.0); METAMYELOCYTES %M 2 % (0-0); MICROCYTOSIS 2+ (0-0); MONOCYTE #M 0.8 10^3/ul (0.3-0.9); MONOCYTES % (M) 7 % (0-11); MYELOCYTES #M 0.3 10^3/ul (0.0-0.0); MYELOCYTES % (M) 3 % (0-0); PLATELET ESTIMATE INCREASED; POIKILOCYTOSIS 1+ (0-0); POLYCHROMASIA 2+ (0-0); SEG NEUT #M 7.6 10^3/ul (1.6-7.5); SEGMENTED NEUTROPHILS (M) % 60 % (39-77); SMUDGE%M 4 % (0-0)
[2018-01-23] MEDS: COLLAGENASE 5 GM (UD JAR) TOP (09:53)
[2018-01-23] MEDS: BALSAM PERU/CASTOR OIL 60 GM TUBE TOP ×2 (09:53→21:00)
[2018-01-23] MEDS: BACITRACIN/POLYMYXIN 28.35 GM OINT TOP ×2 (09:53→21:04)
[2018-01-23] MEDS: INSULIN GLARGINE [LANtus] 3 ML PEN SC (21:07)
[2018-01-24] MEDS: METOCLOPRAMIDE 10 MG INJ IV ×4 (00:17→17:57)
[2018-01-24] MEDS: ACCU-CHEK XX ×5 (00:20→17:34)
[2018-01-24] MEDS: INSULIN ASPART [NOVOLOG] 3 ML PEN SC ×4 (00:24→17:36)
[2018-01-24] MEDS: LEVALBUTEROL (HFA) 15 GM INHALER INH ×4 (02:22→19:14)
[2018-01-24] MEDS: metroNIDAZOLE 500 MG/NS (PMX) 100 ML IVPB ×3 (05:27→22:02)
[2018-01-24] MEDS: PANTOPRAZOLE 40 MG INJ IV (05:28)
[2018-01-24] MEDS: TPN 1,000 ML IV ×2 (06:38→18:54)
[2018-01-24 07:20] LABS: ADD MAN DIFF? NO
[2018-01-24 07:23] LABS: ABNORMAL IP MESSAGE 1; BASOPHILS % 0.2 % (0.0-2.0); EOSINOPHILS # 1.7 10^3/ul (0.0-0.5); EOSINOPHILS % 12.9 % (0.0-7.0); HEMOGLOBIN 8.6 g/dl (14.0-18.0); LYMPHOCYTES # 1.2 10^3/ul (0.8-2.9); LYMPHOCYTES % 9.3 % (15.0-51.0); MEAN CORPUSCULAR HEMOGLOBIN 27.4 pg (29.0-33.0); MEAN CORPUSCULAR HGB CONC 31.9 g/dl (32.0-37.0); MEAN PLATELET VOLUME 8.9 fl (7.4-10.4); MONOCYTE # 1.5 10^3/ul (0.3-0.9); MONOCYTES % 11.5 % (0.0-11.0); NEUTROPHIL # 7.8 10^3/ul (1.6-7.5); NUCLEATED RED BLOOD CELLS% 0.3 /100WBC (0.0-0.0); PLATELET COUNT 543 10^3/UL (140-415); POSITIVE DIFF @See below; RED BLOOD COUNT 3.14 10^6/ul (4.70-6.10); RED CELL DISTRIBUTION WIDTH 20.6 % (11.5-14.5)
[2018-01-24 07:23] LABS: WHITE BLOOD COUNT 12.8 10^3/ul (4.8-10.8)
[2018-01-24 07:49] LABS: ANION GAP 8 (8-16); BLOOD UREA NITROGEN 14 mg/dl (7-20); CALCIUM 8.5 mg/dl (8.4-10.2); CARBON DIOXIDE 28 mmol/L (21-31); CHLORIDE 102 mmol/L (97-110); CREATININE 0.49 mg/dl (0.61-1.24); GLUCOSE 231 mg/dl (70-220); POTASSIUM 4.3 mmol/L (3.5-5.1); SODIUM 134 mmol/L (135-144)
[2018-01-24] MEDS: POLYETHYLENE GLYCOL 17 GM PACKET GTB (09:00)
[2018-01-24] MEDS: AMIODARONE 200 MG TAB NGT (09:00)
[2018-01-24] MEDS: COLLAGENASE 5 GM (UD JAR) TOP (09:05)
[2018-01-24] MEDS: BALSAM PERU/CASTOR OIL 60 GM TUBE TOP ×2 (09:06→21:00)
[2018-01-24] MEDS: BACITRACIN/POLYMYXIN 28.35 GM OINT TOP ×2 (09:06→21:00)
[2018-01-24 09:11] LABS: ANISOCYTOSIS 2+ (0-0); BAND NEUTROPHILS #M 2.5 10^3/ul (0.0-0.6); BAND NEUTROPHILS % (M) 20 % (0-4); BASOPHIL #M 0.1 10^3/ul (0.0-0.0); BASOPHILS % (M) 1 % (0-2); EOSINOPHILS % (M) 11 % (0-7); GIANT THROMBO% (M) 1 % (0-0); HYPOCHROMASIA 1+ (0-0); LYMPHOCYTES #M 1.6 10^3/ul (0.8-2.9); LYMPHOCYTES % (M) 13 % (15-51); MICROCYTOSIS 2+ (0-0); MONOCYTE #M 0.5 10^3/ul (0.3-0.9); MONOCYTES % (M) 4 % (0-11); PLASMA CELLS #M 0.1 10^3/ul (0.0-0.0); PLASMAC%(M) 1 % (0); PLATELET ESTIMATE INCREASED; POLYCHROMASIA 3+ (0-0); SEG NEUT #M 6.7 10^3/ul (1.6-7.5); SEGMENTED NEUTROPHILS (M) % 50 % (39-77); SMUDGE%M 4 % (0-0)
[2018-01-24 12:22] LABS: B-TYPE NATRIURETIC PEPTIDE 3050 PG/ML (0-450)
[2018-01-24 12:42] LABS: THYROID STIMULATING HORMONE 0.739 MIU/L (0.465-4.680)
[2018-01-24] MEDS: FAT EMULSION 20% 250 ML IV (17:57)
[2018-01-24] MEDS: PROPOFOL 20 ML (19:00)
[2018-01-24] MEDS: EPHEDrine SULFATE 50 MG/5 ML SYG (19:00)
[2018-01-24] MEDS: FENTAnyl 50 MCG/ML VIAL (19:00)
[2018-01-24] MEDS: INSULIN GLARGINE [LANtus] 3 ML PEN SC (20:00)
[2018-01-25] MEDS: METOCLOPRAMIDE 10 MG INJ IV ×4 (00:17→17:24)
[2018-01-25] MEDS: INSULIN ASPART [NOVOLOG] 3 ML PEN SC ×4 (00:23→17:39)
[2018-01-25] MEDS: LEVALBUTEROL (HFA) 15 GM INHALER INH (01:53)
[2018-01-25] MEDS: PANTOPRAZOLE 40 MG INJ IV (05:25)
[2018-01-25] MEDS: metroNIDAZOLE 500 MG/NS (PMX) 100 ML IVPB ×3 (05:30→22:00)
[2018-01-25] MEDS: TPN 1,000 ML IV ×2 (07:25→20:17)
[2018-01-25 08:11] LABS: ADD MAN DIFF? NO
[2018-01-25 08:16] LABS: WHITE BLOOD COUNT 13.9 10^3/ul (4.8-10.8)
[2018-01-25 08:16] LABS: ABNORMAL IP MESSAGE 1; BASOPHILS % 0.2 % (0.0-2.0); EOSINOPHILS # 2.4 10^3/ul (0.0-0.5); EOSINOPHILS % 17.5 % (0.0-7.0); HEMATOCRIT 26.2 % (42.0-52.0); HEMOGLOBIN 8.5 g/dl (14.0-18.0); LYMPHOCYTES # 1.4 10^3/ul (0.8-2.9); LYMPHOCYTES % 10.3 % (15.0-51.0); MEAN CORPUSCULAR HEMOGLOBIN 28.3 pg (29.0-33.0); MEAN CORPUSCULAR HGB CONC 32.4 g/dl (32.0-37.0); MEAN CORPUSCULAR VOLUME 87.3 fl (82.0-101.0); MONOCYTE # 1.6 10^3/ul (0.3-0.9); MONOCYTES % 11.6 % (0.0-11.0); NEUTROPHIL # 7.8 10^3/ul (1.6-7.5); NEUTROPHILS % 55.7 % (39.0-77.0); NUCLEATED RED BLOOD CELLS% 0.3 /100WBC (0.0-0.0); PLATELET COUNT 473 10^3/UL (140-415); POSITIVE DIFF @See below; RED CELL DISTRIBUTION WIDTH 20.1 % (11.5-14.5)
[2018-01-25 08:35] LABS: ANION GAP 8 (8-16); BLOOD UREA NITROGEN 14 mg/dl (7-20); CALCIUM 8.2 mg/dl (8.4-10.2); CARBON DIOXIDE 26 mmol/L (21-31); CHLORIDE 103 mmol/L (97-110); CREATININE 0.41 mg/dl (0.61-1.24); GLUCOSE 219 mg/dl (70-220); PHOSPHORUS 3.2 mg/dl (2.5-4.9); POTASSIUM 4.9 mmol/L (3.5-5.1); SODIUM 132 mmol/L (135-144); TRIGLYCERIDES 197 mg/dl (0-149)
[2018-01-25] MEDS: POLYETHYLENE GLYCOL 17 GM PACKET GTB (08:36)
[2018-01-25] MEDS: COLLAGENASE 5 GM (UD JAR) TOP (08:39)
[2018-01-25] MEDS: BALSAM PERU/CASTOR OIL 60 GM TUBE TOP ×2 (08:40→22:00)
[2018-01-25] MEDS: BACITRACIN/POLYMYXIN 28.35 GM OINT TOP ×2 (08:41→21:00)
[2018-01-25] MEDS: INSULIN GLARGINE [LANtus] 3 ML PEN SC (20:31)
[2018-01-26] MEDS: METOCLOPRAMIDE 10 MG INJ IV ×4 (00:37→17:10)
[2018-01-26] MEDS: INSULIN ASPART [NOVOLOG] 3 ML PEN SC ×4 (00:40→17:21)
[2018-01-26] MEDS: metroNIDAZOLE 500 MG/NS (PMX) 100 ML IVPB ×3 (05:45→22:28)
[2018-01-26] MEDS: PANTOPRAZOLE 40 MG INJ IV (05:45)
[2018-01-26 07:19] LABS: ADD MAN DIFF? NO
[2018-01-26 07:23] LABS: ABNORMAL IP MESSAGE 1; BASOPHILS % 0.2 % (0.0-2.0); EOSINOPHILS # 2.1 10^3/ul (0.0-0.5); EOSINOPHILS % 14.4 % (0.0-7.0); HEMATOCRIT 25.2 % (42.0-52.0); HEMOGLOBIN 8.3 g/dl (14.0-18.0); LYMPHOCYTES # 1.4 10^3/ul (0.8-2.9); LYMPHOCYTES % 9.2 % (15.0-51.0); MEAN CORPUSCULAR HEMOGLOBIN 28.7 pg (29.0-33.0); MEAN CORPUSCULAR HGB CONC 32.9 g/dl (32.0-37.0); MEAN CORPUSCULAR VOLUME 87.2 fl (82.0-101.0); MEAN PLATELET VOLUME 9.6 fl (7.4-10.4); MONOCYTE # 1.7 10^3/ul (0.3-0.9); MONOCYTES % 11.5 % (0.0-11.0); NEUTROPHIL # 9.1 10^3/ul (1.6-7.5); NEUTROPHILS % 61.6 % (39.0-77.0); NUCLEATED RED BLOOD CELLS% 0.1 /100WBC (0.0-0.0); PLATELET COUNT 432 10^3/UL (140-415); POSITIVE DIFF @See below; RED BLOOD COUNT 2.89 10^6/ul (4.70-6.10); RED CELL DISTRIBUTION WIDTH 20.5 % (11.5-14.5)
[2018-01-26 07:23] LABS: WHITE BLOOD COUNT 14.7 10^3/ul (4.8-10.8)
[2018-01-26 07:46] LABS: ANION GAP 10 (8-16); BLOOD UREA NITROGEN 15 mg/dl (7-20); CALCIUM 8.3 mg/dl (8.4-10.2); CARBON DIOXIDE 25 mmol/L (21-31); CHLORIDE 102 mmol/L (97-110); CREATININE 0.49 mg/dl (0.61-1.24); GLUCOSE 207 mg/dl (70-220); POTASSIUM 4.7 mmol/L (3.5-5.1); SODIUM 132 mmol/L (135-144)
[2018-01-26 07:51] LABS: PREALBUMIN 6.8 mg/dl (17.6-36.0)
[2018-01-26] MEDS: POLYETHYLENE GLYCOL 17 GM PACKET GTB (09:00)
[2018-01-26] MEDS: COLLAGENASE 5 GM (UD JAR) TOP (09:05)
[2018-01-26] MEDS: BALSAM PERU/CASTOR OIL 60 GM TUBE TOP ×2 (09:05→20:33)
[2018-01-26] MEDS: BACITRACIN/POLYMYXIN 28.35 GM OINT TOP ×2 (09:06→20:33)
[2018-01-26] MEDS: METOPROLOL 5 MG INJ IV (09:07)
[2018-01-26] MEDS: TPN 1,000 ML IV ×2 (09:51→21:47)
[2018-01-26] MEDS ORDERED: VANCOMYCIN IV PER PHARMACY XX (11:30)
[2018-01-26] MEDS: VANCOMYCIN 1.25 GM in SOD CHLORIDE 0.9% 250 ML IVPB (14:00)
[2018-01-26] MEDS: MEROPENEM 500MG/50 ML (PMX) 50 ML IVPB ×2 (14:55→21:43)
[2018-01-26] MEDS: FAT EMULSION 20% 250 ML IV (15:53)
[2018-01-26] MEDS: INSULIN GLARGINE [LANtus] 3 ML PEN SC (20:38)
[2018-01-26] MEDS: LORAZEPAM 2 MG INJ IV (22:29)
[2018-01-27] MEDS: METOCLOPRAMIDE 10 MG INJ IV ×4 (00:04→17:37)
[2018-01-27] MEDS: INSULIN ASPART [NOVOLOG] 3 ML PEN SC ×4 (00:20→17:42)
[2018-01-27] MEDS: VANCOMYCIN 1 GM 250 ML IVPB ×2 (01:39→13:32)
[2018-01-27] MEDS: PANTOPRAZOLE 40 MG INJ IV (05:17)
[2018-01-27] MEDS: MEROPENEM 500MG/50 ML (PMX) 50 ML IVPB ×3 (05:33→21:59)
[2018-01-27] MEDS: metroNIDAZOLE 500 MG/NS (PMX) 100 ML IVPB ×3 (06:38→22:00)
[2018-01-27 08:43] LABS: ANION GAP 9 (8-16); BLOOD UREA NITROGEN 15 mg/dl (7-20); CARBON DIOXIDE 25 mmol/L (21-31); CHLORIDE 105 mmol/L (97-110); CREATININE 0.41 mg/dl (0.61-1.24); GLUCOSE 186 mg/dl (70-220); MAGNESIUM 2.1 mg/dl (1.7-2.5); PHOSPHORUS 2.8 mg/dl (2.5-4.9); POTASSIUM 4.5 mmol/L (3.5-5.1); SODIUM 134 mmol/L (135-144)
[2018-01-27] MEDS: BALSAM PERU/CASTOR OIL 60 GM TUBE TOP ×2 (09:02→21:24)
[2018-01-27] MEDS: BACITRACIN/POLYMYXIN 28.35 GM OINT TOP ×2 (09:02→21:23)
[2018-01-27] MEDS: COLLAGENASE 5 GM (UD JAR) TOP (09:02)
[2018-01-27] MEDS: POLYETHYLENE GLYCOL 17 GM PACKET GTB (09:05)
[2018-01-27] MEDS: TPN 1,000 ML IV ×2 (09:05→21:25)
[2018-01-27] MEDS: INSULIN GLARGINE [LANtus] 3 ML PEN SC (21:55)
[2018-01-28] MEDS: METOCLOPRAMIDE 10 MG INJ IV ×5 (01:09→23:20)
[2018-01-28] MEDS: INSULIN ASPART [NOVOLOG] 3 ML PEN SC ×6 (01:19→23:41)
[2018-01-28] MEDS: VANCOMYCIN 1 GM 250 ML IVPB ×2 (02:54→15:11)
[2018-01-28] MEDS: metroNIDAZOLE 500 MG/NS (PMX) 100 ML IVPB ×3 (05:30→21:46)
[2018-01-28] MEDS: MEROPENEM 500MG/50 ML (PMX) 50 ML IVPB ×3 (05:31→21:46)
[2018-01-28] MEDS: PANTOPRAZOLE 40 MG INJ IV (05:35)
[2018-01-28 06:34] LABS: ABNORMAL IP MESSAGE 1; HEMATOCRIT 25.6 % (42.0-52.0); HEMOGLOBIN 8.4 g/dl (14.0-18.0); MEAN CORPUSCULAR HEMOGLOBIN 28.9 pg (29.0-33.0); MEAN CORPUSCULAR HGB CONC 32.8 g/dl (32.0-37.0); PLATELET COUNT 415 10^3/UL (140-415); POSITIVE DIFF @See below; RED BLOOD COUNT 2.91 10^6/ul (4.70-6.10); RED CELL DISTRIBUTION WIDTH 20.6 % (11.5-14.5)
[2018-01-28 06:34] LABS: WHITE BLOOD COUNT 17.3 10^3/ul (4.8-10.8)
[2018-01-28 06:57] LABS: ADD MAN DIFF? YES
[2018-01-28 07:10] LABS: ANION GAP 9 (8-16); BLOOD UREA NITROGEN 17 mg/dl (7-20); CALCIUM 8.1 mg/dl (8.4-10.2); CARBON DIOXIDE 28 mmol/L (21-31); CHLORIDE 103 mmol/L (97-110); GLUCOSE 108 mg/dl (70-220); MAGNESIUM 1.9 mg/dl (1.7-2.5); POTASSIUM 4.4 mmol/L (3.5-5.1); SODIUM 136 mmol/L (135-144)
[2018-01-28] MEDS: POLYETHYLENE GLYCOL 17 GM PACKET GTB (08:47)
[2018-01-28] MEDS: BACITRACIN/POLYMYXIN 28.35 GM OINT TOP ×2 (08:48→21:12)
[2018-01-28] MEDS: COLLAGENASE 5 GM (UD JAR) TOP (08:48)
[2018-01-28] MEDS: BALSAM PERU/CASTOR OIL 60 GM TUBE TOP ×2 (08:49→21:12)
[2018-01-28 09:20] LABS: ANISOCYTOSIS 1+ (0-0); BAND NEUTROPHILS #M 0.8 10^3/ul (0.0-0.6); BAND NEUTROPHILS % (M) 5 % (0-4); EOSINOPHILS % (M) 30 % (0-7); LYMPHOCYTES #M 1.9 10^3/ul (0.8-2.9); LYMPHOCYTES % (M) 11 % (15-51); MICROCYTOSIS 1+ (0-0); MONOCYTE #M 1.2 10^3/ul (0.3-0.9); MONOCYTES % (M) 7 % (0-11); MYELOCYTES #M 0.1 10^3/ul (0.0-0.0); MYELOCYTES % (M) 1 % (0-0); PLATELET ESTIMATE NORMAL; POLYCHROMASIA 1+ (0-0); REACTIVE LYMPHOCYTES #M 0.1 10^3/ul (0.0-0.0); REACTIVE LYMPHOCYTES% (M) 1 % (0-0); SEG NEUT #M 7.9 10^3/ul (1.6-7.5); SEGMENTED NEUTROPHILS (M) % 45 % (39-77); SMUDGE%M 5 % (0-0); SPHEROCYTES 1+ (0-0)
[2018-01-28] MEDS: TPN 1,000 ML IV ×2 (12:36→22:44)
[2018-01-28] MEDS: FLUCONAZOLE 100 MG/50 ML (PMX) 50 ML IVPB (12:37)
[2018-01-28] MEDS: FAT EMULSION 20% 250 ML IV (16:33)
[2018-01-28] MEDS: INSULIN GLARGINE [LANtus] 3 ML PEN SC (21:54)
[2018-01-29] MEDS: VANCOMYCIN 1 GM 250 ML IVPB ×2 (02:33→15:10)
[2018-01-29] MEDS: METOCLOPRAMIDE 10 MG INJ IV ×4 (05:36→23:38)
[2018-01-29] MEDS: PANTOPRAZOLE 40 MG INJ IV (05:36)
[2018-01-29] MEDS: metroNIDAZOLE 500 MG/NS (PMX) 100 ML IVPB ×3 (05:37→23:38)
[2018-01-29] MEDS: MEROPENEM 500MG/50 ML (PMX) 50 ML IVPB ×3 (05:38→23:38)
[2018-01-29] MEDS: INSULIN ASPART [NOVOLOG] 3 ML PEN SC ×6 (06:02→23:31)
[2018-01-29] MEDS: POLYETHYLENE GLYCOL 17 GM PACKET GTB (08:33)
[2018-01-29] MEDS: BALSAM PERU/CASTOR OIL 60 GM TUBE TOP ×2 (08:38→23:38)
[2018-01-29] MEDS: COLLAGENASE 5 GM (UD JAR) TOP (08:38)
[2018-01-29] MEDS: BACITRACIN/POLYMYXIN 28.35 GM OINT TOP ×2 (08:39→23:38)
[2018-01-29 09:24] LABS: ANION GAP 9 (8-16); BLOOD UREA NITROGEN 21 mg/dl (7-20); CALCIUM 7.9 mg/dl (8.4-10.2); CARBON DIOXIDE 26 mmol/L (21-31); CHLORIDE 109 mmol/L (97-110); CREATININE 0.41 mg/dl (0.61-1.24); GLUCOSE 170 mg/dl (70-220); MAGNESIUM 1.8 mg/dl (1.7-2.5); PHOSPHORUS 2.9 mg/dl (2.5-4.9); POTASSIUM 4.1 mmol/L (3.5-5.1); SODIUM 140 mmol/L (135-144)
[2018-01-29] MEDS: TPN 1,000 ML IV (11:58)
[2018-01-29] MEDS: FLUCONAZOLE 100 MG/50 ML (PMX) 50 ML IVPB (12:03)
[2018-01-29] MEDS: INSULIN GLARGINE [LANtus] 3 ML PEN SC (23:34)
[2018-01-30] MEDS: TPN 1,000 ML IV ×2 (00:11→14:19)
[2018-01-30] MEDS: VANCOMYCIN 1 GM 250 ML IVPB ×2 (02:53→15:48)
[2018-01-30] MEDS: LORAZEPAM 2 MG INJ IV ×2 (03:19→20:11)
[2018-01-30] MEDS: ALBUTEROL/IPRATROPIUM (NEB) 3 ML AMP HHN (03:37)
[2018-01-30 04:59] LABS: Allen Test ACCEPTAB; Arterial Base Excess 3.7 mmol/L (-3.0-3); Arterial Blood Gas Oxygen Sat 99.7 mmHG (95.0-100.0); Arterial COHb 0 % (0.0-3.0); Arterial Fraction of Oxyhgb 99.2 % (93.0-99.0); Arterial MetHb 0.5 % (0.0-1.5); Arterial Total Hemglobin 8.4 g/dl (12.0-18.0); Arterial pCO2 35.2 mmhg (35-45); MODE VENT - PC; Site Right Radial
[2018-01-30] MEDS: INSULIN ASPART [NOVOLOG] 3 ML PEN SC ×5 (05:39→23:10)
[2018-01-30] MEDS: MEROPENEM 500MG/50 ML (PMX) 50 ML IVPB ×3 (05:50→23:24)
[2018-01-30] MEDS: METOCLOPRAMIDE 10 MG INJ IV ×4 (05:50→23:23)
[2018-01-30] MEDS: PANTOPRAZOLE 40 MG INJ IV (05:50)
[2018-01-30] MEDS: metroNIDAZOLE 500 MG/NS (PMX) 100 ML IVPB ×3 (06:34→23:59)
[2018-01-30] MEDS: ACETAMINOPHEN 650 MG SUPP PR (06:34)
[2018-01-30 07:27] LABS: ANION GAP 11 (8-16); BLOOD UREA NITROGEN 23 mg/dl (7-20); CALCIUM 7.9 mg/dl (8.4-10.2); CARBON DIOXIDE 25 mmol/L (21-31); CHLORIDE 109 mmol/L (97-110); GLUCOSE 201 mg/dl (70-220); MAGNESIUM 1.6 mg/dl (1.7-2.5); PHOSPHORUS 2.8 mg/dl (2.5-4.9); POTASSIUM 3.9 mmol/L (3.5-5.1); SODIUM 141 mmol/L (135-144)
[2018-01-30] MEDS: POLYETHYLENE GLYCOL 17 GM PACKET GTB ×2 (09:00)
[2018-01-30] MEDS: BALSAM PERU/CASTOR OIL 60 GM TUBE TOP ×2 (09:02→23:25)
[2018-01-30] MEDS: COLLAGENASE 5 GM (UD JAR) TOP (09:02)
[2018-01-30] MEDS: BACITRACIN/POLYMYXIN 28.35 GM OINT TOP ×2 (09:03→23:26)
[2018-01-30] MEDS: MAGNESIUM SULFATE 1 GM/D5W 100 ML IVPB (12:04)
[2018-01-30 14:10] LABS: VANCOMYCIN,TROUGH 17.7 ug/ml (10.0-20.0)
[2018-01-30] MEDS: FLUCONAZOLE 100 MG/50 ML (PMX) 50 ML IVPB (14:19)
[2018-01-30] MEDS: INSULIN GLARGINE [LANtus] 3 ML PEN SC (23:07)
[2018-01-31] MEDS: INSULIN ASPART [NOVOLOG] 3 ML PEN SC ×7 (01:01→23:51)
[2018-01-31] MEDS: VANCOMYCIN 750 MG in SOD CHLORIDE 0.9% 150 ML IVPB ×2 (04:12→18:05)
[2018-01-31] MEDS: TPN 1,000 ML IV ×3 (04:12→16:47)
[2018-01-31] MEDS: MEROPENEM 500MG/50 ML (PMX) 50 ML IVPB ×3 (05:56→21:49)
[2018-01-31] MEDS: LORAZEPAM 2 MG INJ IV (06:08)
[2018-01-31] MEDS: PANTOPRAZOLE 40 MG INJ IV (06:11)
[2018-01-31] MEDS: METOCLOPRAMIDE 10 MG INJ IV ×4 (06:12→23:51)
[2018-01-31] MEDS: metroNIDAZOLE 500 MG/NS (PMX) 100 ML IVPB ×3 (06:36→21:49)
[2018-01-31 07:16] LABS: ADD MAN DIFF? NO
[2018-01-31 07:19] LABS: WHITE BLOOD COUNT 17.1 10^3/ul (4.8-10.8)
[2018-01-31 07:19] LABS: ABNORMAL IP MESSAGE 1; BASOPHILS % 0.2 % (0.0-2.0); EOSINOPHILS # 4.2 10^3/ul (0.0-0.5); EOSINOPHILS % 24.3 % (0.0-7.0); HEMOGLOBIN 7.6 g/dl (14.0-18.0); LYMPHOCYTES # 2.1 10^3/ul (0.8-2.9); LYMPHOCYTES % 12.2 % (15.0-51.0); MEAN CORPUSCULAR HEMOGLOBIN 28.4 pg (29.0-33.0); MEAN CORPUSCULAR HGB CONC 31.7 g/dl (32.0-37.0); MEAN CORPUSCULAR VOLUME 89.6 fl (82.0-101.0); MEAN PLATELET VOLUME 10.2 fl (7.4-10.4); MONOCYTE # 1.3 10^3/ul (0.3-0.9); MONOCYTES % 7.4 % (0.0-11.0); NEUTROPHIL # 8.9 10^3/ul (1.6-7.5); NEUTROPHILS % 52.2 % (39.0-77.0); NUCLEATED RED BLOOD CELLS # 0.1 10^3/ul (0.0-0.0); NUCLEATED RED BLOOD CELLS% 0.3 /100WBC (0.0-0.0); PLATELET COUNT 336 10^3/UL (140-415); POSITIVE DIFF @See below; RED BLOOD COUNT 2.68 10^6/ul (4.70-6.10); RED CELL DISTRIBUTION WIDTH 21.4 % (11.5-14.5)
[2018-01-31 07:55] LABS: ANION GAP 11 (8-16); BLOOD UREA NITROGEN 27 mg/dl (7-20); CALCIUM 7.9 mg/dl (8.4-10.2); CARBON DIOXIDE 26 mmol/L (21-31); CHLORIDE 109 mmol/L (97-110); CREATININE 0.39 mg/dl (0.61-1.24); GLUCOSE 123 mg/dl (70-220); POTASSIUM 3.9 mmol/L (3.5-5.1); SODIUM 142 mmol/L (135-144)
[2018-01-31] MEDS: POLYETHYLENE GLYCOL 17 GM PACKET GTB (09:00)
[2018-01-31] MEDS: COLLAGENASE 5 GM (UD JAR) TOP (09:28)
[2018-01-31] MEDS: BACITRACIN/POLYMYXIN 28.35 GM OINT TOP ×2 (09:28→22:00)
[2018-01-31] MEDS: BALSAM PERU/CASTOR OIL 60 GM TUBE TOP ×2 (09:28→22:00)
[2018-01-31] MEDS: FLUCONAZOLE 100 MG/50 ML (PMX) 50 ML IVPB (12:29)
[2018-01-31] MEDS: FAT EMULSION 20% 250 ML IV (17:56)
[2018-01-31] MEDS: INSULIN GLARGINE [LANtus] 3 ML PEN SC (22:02)
[2018-02-01] MEDS: TPN 1,000 ML IV ×3 (02:00→17:55)
[2018-02-01] MEDS: VANCOMYCIN 750 MG in SOD CHLORIDE 0.9% 150 ML IVPB ×2 (04:35→17:55)
[2018-02-01] MEDS: LORAZEPAM 2 MG INJ IV ×4 (05:11→20:33)
[2018-02-01] MEDS: INSULIN ASPART [NOVOLOG] 3 ML PEN SC ×4 (05:26→18:16)
[2018-02-01] MEDS: metroNIDAZOLE 500 MG/NS (PMX) 100 ML IVPB ×3 (06:17→22:17)
[2018-02-01] MEDS: METOCLOPRAMIDE 10 MG INJ IV ×3 (06:18→17:55)
[2018-02-01] MEDS: PANTOPRAZOLE 40 MG INJ IV (06:18)
[2018-02-01] MEDS: MEROPENEM 500MG/50 ML (PMX) 50 ML IVPB ×3 (06:18→22:16)
[2018-02-01] MEDS: METOPROLOL 5 MG INJ IV ×4 (06:53→20:35)
[2018-02-01] MEDS: POLYETHYLENE GLYCOL 17 GM PACKET GTB (08:12)
[2018-02-01 08:16] LABS: ANION GAP 11 (8-16); BLOOD UREA NITROGEN 28 mg/dl (7-20); CALCIUM 7.9 mg/dl (8.4-10.2); CARBON DIOXIDE 28 mmol/L (21-31); CHLORIDE 111 mmol/L (97-110); CREATININE 0.44 mg/dl (0.61-1.24); GLUCOSE 250 mg/dl (70-220); MAGNESIUM 2.2 mg/dl (1.7-2.5); PHOSPHORUS 3.9 mg/dl (2.5-4.9); POTASSIUM 4.3 mmol/L (3.5-5.1); SODIUM 146 mmol/L (135-144)
[2018-02-01] MEDS: morphine 2 MG INJ IV (08:25)
[2018-02-01] MEDS: COLLAGENASE 5 GM (UD JAR) TOP (08:25)
[2018-02-01] MEDS: BALSAM PERU/CASTOR OIL 60 GM TUBE TOP ×2 (08:26→21:00)
[2018-02-01] MEDS: BACITRACIN/POLYMYXIN 28.35 GM OINT TOP ×2 (08:26→21:00)
[2018-02-01] MEDS: FLUCONAZOLE 100 MG/50 ML (PMX) 50 ML IVPB (13:07)
[2018-02-01] MEDS ORDERED: INSULIN ASPART [NOVOLOG] 3 ML PEN SC (21:00)
[2018-02-01] MEDS: Insulin NOVOLOG SS MODERATE Algorithm(NPO/TPN/ENTERAL FEEDS) SC (21:10)
[2018-02-01] MEDS: INSULIN GLARGINE [LANtus] 3 ML PEN SC (22:27)
[2018-02-02] MEDS: METOCLOPRAMIDE 10 MG INJ IV ×4 (00:40→17:46)
[2018-02-02] MEDS: METOPROLOL 5 MG INJ IV ×5 (00:42→20:31)
[2018-02-02] MEDS: Insulin NOVOLOG SS MODERATE Algorithm(NPO/TPN/ENTERAL FEEDS) SC ×6 (01:12→22:00)
[2018-02-02] MEDS: LORAZEPAM 2 MG INJ IV ×3 (02:48→23:17)
[2018-02-02] MEDS: VANCOMYCIN 1 GM 250 ML IVPB ×2 (04:56→16:36)
[2018-02-02] MEDS: PANTOPRAZOLE 40 MG INJ IV (05:59)
[2018-02-02] MEDS: MEROPENEM 500MG/50 ML (PMX) 50 ML IVPB ×3 (06:15→21:33)
[2018-02-02] MEDS: metroNIDAZOLE 500 MG/NS (PMX) 100 ML IVPB ×3 (06:48→22:15)
[2018-02-02] MEDS: TPN 1,000 ML IV (07:16)
[2018-02-02] MEDS: POLYETHYLENE GLYCOL 17 GM PACKET GTB (07:21)
[2018-02-02 07:36] LABS: ADD MAN DIFF? NO
[2018-02-02 07:38] LABS: ABNORMAL IP MESSAGE 1; BASOPHIL # 0.1 10^3/ul (0.0-0.1); BASOPHILS % 0.2 % (0.0-2.0); EOSINOPHILS % 0.1 % (0.0-7.0); HEMATOCRIT 27.1 % (42.0-52.0); HEMOGLOBIN 8.1 g/dl (14.0-18.0); LYMPHOCYTES # 1.8 10^3/ul (0.8-2.9); LYMPHOCYTES % 8.7 % (15.0-51.0); MEAN CORPUSCULAR HEMOGLOBIN 27.8 pg (29.0-33.0); MEAN CORPUSCULAR HGB CONC 29.9 g/dl (32.0-37.0); MEAN CORPUSCULAR VOLUME 93.1 fl (82.0-101.0); MEAN PLATELET VOLUME 10.2 fl (7.4-10.4); MONOCYTE # 2.3 10^3/ul (0.3-0.9); MONOCYTES % 10.9 % (0.0-11.0); NEUTROPHIL # 15.4 10^3/ul (1.6-7.5); NEUTROPHILS % 74.2 % (39.0-77.0); NUCLEATED RED BLOOD CELLS # 0.1 10^3/ul (0.0-0.0); NUCLEATED RED BLOOD CELLS% 0.3 /100WBC (0.0-0.0); PLATELET COUNT 322 10^3/UL (140-415); POSITIVE DIFF @See below; RED BLOOD COUNT 2.91 10^6/ul (4.70-6.10); RED CELL DISTRIBUTION WIDTH 22.4 % (11.5-14.5)
[2018-02-02 07:38] LABS: WHITE BLOOD COUNT 20.8 10^3/ul (4.8-10.8)
[2018-02-02 08:01] LABS: ANION GAP 11 (8-16); BLOOD UREA NITROGEN 47 mg/dl (7-20); CALCIUM 8.4 mg/dl (8.4-10.2); CARBON DIOXIDE 26 mmol/L (21-31); CHLORIDE 122 mmol/L (97-110); CREATININE 0.51 mg/dl (0.61-1.24); GLUCOSE 164 mg/dl (70-220); MAGNESIUM 2.5 mg/dl (1.7-2.5); PHOSPHORUS 3.2 mg/dl (2.5-4.9); POTASSIUM 4.8 mmol/L (3.5-5.1); SODIUM 154 mmol/L (135-144)
[2018-02-02] MEDS: COLLAGENASE 5 GM (UD JAR) TOP (09:52)
[2018-02-02] MEDS: BALSAM PERU/CASTOR OIL 60 GM TUBE TOP ×2 (09:52→21:33)
[2018-02-02] MEDS: BACITRACIN/POLYMYXIN 28.35 GM OINT TOP ×2 (09:52→21:33)
[2018-02-02] MEDS: FLUCONAZOLE 100 MG/50 ML (PMX) 50 ML IVPB (11:55)
[2018-02-02] MEDS: FAT EMULSION 20% 250 ML IV (16:00)
[2018-02-02] MEDS: DEXTROSE 5% 1,000 ML IV ×2 (16:36→20:32)
[2018-02-02] MEDS: ALBUTEROL/IPRATROPIUM (NEB) 3 ML AMP HHN (20:11)
[2018-02-02] MEDS: INSULIN GLARGINE [LANtus] 3 ML PEN SC (20:41)
[2018-02-03] MEDS: METOCLOPRAMIDE 10 MG INJ IV ×4 (00:12→18:16)
[2018-02-03] MEDS: METOPROLOL 5 MG INJ IV ×6 (00:12→20:00)
[2018-02-03] MEDS: Insulin NOVOLOG SS MODERATE Algorithm(NPO/TPN/ENTERAL FEEDS) SC ×6 (01:28→22:35)
[2018-02-03] MEDS: VANCOMYCIN 1 GM 250 ML IVPB ×2 (04:17→17:00)
[2018-02-03] MEDS: PANTOPRAZOLE 40 MG INJ IV (06:02)
[2018-02-03] MEDS: MEROPENEM 500MG/50 ML (PMX) 50 ML IVPB ×3 (06:02→22:22)
[2018-02-03] MEDS: metroNIDAZOLE 500 MG/NS (PMX) 100 ML IVPB ×3 (06:03→23:07)
[2018-02-03 07:10] LABS: ANION GAP 12 (8-16); BLOOD UREA NITROGEN 49 mg/dl (7-20); CARBON DIOXIDE 27 mmol/L (21-31); CHLORIDE 115 mmol/L (97-110); CREATININE 0.59 mg/dl (0.61-1.24); GLUCOSE 280 mg/dl (70-220); MAGNESIUM 2.6 mg/dl (1.7-2.5); PHOSPHORUS 2.9 mg/dl (2.5-4.9); SODIUM 150 mmol/L (135-144); TRIGLYCERIDES 105 mg/dl (0-149)
[2018-02-03 07:13] LABS: LACTATE DEHYDROGENASE 1040 IU/L (313-618)
[2018-02-03 07:50] LABS: PREALBUMIN 7.6 mg/dl (17.6-36.0)
[2018-02-03] MEDS: POLYETHYLENE GLYCOL 17 GM PACKET GTB (08:46)
[2018-02-03] MEDS: COLLAGENASE 5 GM (UD JAR) TOP (09:01)
[2018-02-03] MEDS: BALSAM PERU/CASTOR OIL 60 GM TUBE TOP ×2 (09:01→21:00)
[2018-02-03] MEDS: BACITRACIN/POLYMYXIN 28.35 GM OINT TOP ×2 (09:01→21:00)
[2018-02-03] MEDS: FLUCONAZOLE 100 MG/50 ML (PMX) 50 ML IVPB (14:36)
[2018-02-03 16:52] LABS: VANCOMYCIN,TROUGH 16.8 ug/ml (10.0-20.0)
[2018-02-03] MEDS: TPN 1,000 ML IV (19:48)
[2018-02-03] MEDS: INSULIN GLARGINE [LANtus] 3 ML PEN SC (21:28)
[2018-02-03] MEDS: DIGOXIN 500 MCG INJ IV (23:07)
[2018-02-04] MEDS: METOCLOPRAMIDE 10 MG INJ IV ×4 (00:27→18:54)
[2018-02-04] MEDS: METOPROLOL 5 MG INJ IV ×6 (00:27→20:51)
[2018-02-04] MEDS: Insulin NOVOLOG SS MODERATE Algorithm(NPO/TPN/ENTERAL FEEDS) SC ×6 (01:24→20:49)
[2018-02-04] MEDS: VANCOMYCIN 1 GM 250 ML IVPB ×2 (04:33→16:30)
[2018-02-04] MEDS: PANTOPRAZOLE 40 MG INJ IV (05:16)
[2018-02-04] MEDS: MEROPENEM 500MG/50 ML (PMX) 50 ML IVPB ×3 (05:17→22:25)
[2018-02-04] MEDS: metroNIDAZOLE 500 MG/NS (PMX) 100 ML IVPB ×3 (06:41→22:27)
[2018-02-04] MEDS: TPN 1,000 ML IV ×2 (08:02→22:24)
[2018-02-04] MEDS: POLYETHYLENE GLYCOL 17 GM PACKET GTB (09:00)
[2018-02-04] MEDS: BALSAM PERU/CASTOR OIL 60 GM TUBE TOP ×2 (09:00→20:52)
[2018-02-04] MEDS: BACITRACIN/POLYMYXIN 28.35 GM OINT TOP ×2 (09:00→20:52)
[2018-02-04 09:59] LABS: ANION GAP 10 (8-16); BLOOD UREA NITROGEN 62 mg/dl (7-20); CALCIUM 8.1 mg/dl (8.4-10.2); CARBON DIOXIDE 24 mmol/L (21-31); CHLORIDE 125 mmol/L (97-110); GLUCOSE 148 mg/dl (70-220); POTASSIUM 4.5 mmol/L (3.5-5.1); SODIUM 154 mmol/L (135-144)
[2018-02-04 10:00] LABS: MAGNESIUM 2.5 mg/dl (1.7-2.5)
[2018-02-04 10:00] LABS: PHOSPHORUS 3.8 mg/dl (2.5-4.9)
[2018-02-04] MEDS: COLLAGENASE 5 GM (UD JAR) TOP (10:05)
[2018-02-04 11:02] LABS: ABNORMAL IP MESSAGE 1; HEMATOCRIT 26.3 % (42.0-52.0); HEMOGLOBIN 7.7 g/dl (14.0-18.0); MEAN CORPUSCULAR HEMOGLOBIN 28.3 pg (29.0-33.0); MEAN CORPUSCULAR HGB CONC 29.3 g/dl (32.0-37.0); MEAN CORPUSCULAR VOLUME 96.7 fl (82.0-101.0); MEAN PLATELET VOLUME 11.7 fl (7.4-10.4); NUCLEATED RED BLOOD CELLS% 0.7 /100WBC (0.0-0.0); PLATELET COUNT 246 10^3/UL (140-415); POSITIVE DIFF @See below; RED BLOOD COUNT 2.72 10^6/ul (4.70-6.10)
[2018-02-04 11:04] LABS: ADD MAN DIFF? YES
[2018-02-04 11:30] LABS: ANISOCYTOSIS 2+ (0-0); BAND NEUTROPHILS #M 0.7 10^3/ul (0.0-0.6); BAND NEUTROPHILS % (M) 4 % (0-4); BURR CELLS 1+ (0-0); ERYTHROBLAST% (NRBC) (M) 1 % (0-0); LYMPHOCYTES #M 2.7 10^3/ul (0.8-2.9); LYMPHOCYTES % (M) 15 % (15-51); MONOCYTES % (M) 6 % (0-11); PLATELET ESTIMATE NORMAL; POIKILOCYTOSIS 1+ (0-0); POLYCHROMASIA 3+ (0-0); SEG NEUT #M 13.6 10^3/ul (1.6-7.5); SEGMENTED NEUTROPHILS (M) % 75 % (39-77); SMUDGE%M 3 % (0-0)
[2018-02-04] MEDS: FLUCONAZOLE 100 MG/50 ML (PMX) 50 ML IVPB (13:22)
[2018-02-04] MEDS: SOD CHLORIDE 0.9% 1,000 ML IV (17:26)
[2018-02-04] MEDS: FAT EMULSION 20% 250 ML IV (18:54)
[2018-02-04] MEDS: INSULIN GLARGINE [LANtus] 3 ML PEN SC (20:48)
[2018-02-05] MEDS: METOCLOPRAMIDE 10 MG INJ IV ×5 (00:45→23:14)
[2018-02-05] MEDS: METOPROLOL 5 MG INJ IV ×7 (00:49→23:26)
[2018-02-05] MEDS: Insulin NOVOLOG SS MODERATE Algorithm(NPO/TPN/ENTERAL FEEDS) SC ×6 (01:01→21:00)
[2018-02-05] MEDS: VANCOMYCIN 1 GM 250 ML IVPB ×2 (05:03→16:29)
[2018-02-05] MEDS: MEROPENEM 500MG/50 ML (PMX) 50 ML IVPB ×3 (05:34→22:13)
[2018-02-05] MEDS: PANTOPRAZOLE 40 MG INJ IV (05:38)
[2018-02-05] MEDS: metroNIDAZOLE 500 MG/NS (PMX) 100 ML IVPB ×3 (06:24→22:13)
[2018-02-05 06:44] LABS: ADD MAN DIFF? NO
[2018-02-05 06:54] LABS: WHITE BLOOD COUNT 12.9 10^3/ul (4.8-10.8)
[2018-02-05 06:54] LABS: ABNORMAL IP MESSAGE 1; BASOPHILS % 0.1 % (0.0-2.0); EOSINOPHILS % 0.1 % (0.0-7.0); HEMATOCRIT 21.2 % (42.0-52.0); HEMOGLOBIN 7.1 g/dl (14.0-18.0); LYMPHOCYTES # 0.8 10^3/ul (0.8-2.9); LYMPHOCYTES % 5.9 % (15.0-51.0); MEAN CORPUSCULAR HEMOGLOBIN 32.3 pg (29.0-33.0); MEAN CORPUSCULAR HGB CONC 33.5 g/dl (32.0-37.0); MEAN CORPUSCULAR VOLUME 96.4 fl (82.0-101.0); MEAN PLATELET VOLUME 11.9 fl (7.4-10.4); MONOCYTE # 0.8 10^3/ul (0.3-0.9); MONOCYTES % 6.3 % (0.0-11.0); NEUTROPHIL # 10.5 10^3/ul (1.6-7.5); NEUTROPHILS % 81.7 % (39.0-77.0); NUCLEATED RED BLOOD CELLS # 0.2 10^3/ul (0.0-0.0); NUCLEATED RED BLOOD CELLS% 1.7 /100WBC (0.0-0.0); PLATELET COUNT 197 10^3/UL (140-415); POSITIVE DIFF @See below
[2018-02-05 07:09] LABS: ANION GAP 11 (8-16)
[2018-02-05 07:16] LABS: BLOOD UREA NITROGEN 57 mg/dl (7-20); CALCIUM 7.5 mg/dl (8.4-10.2); CARBON DIOXIDE 21 mmol/L (21-31); CHLORIDE 121 mmol/L (97-110); CREATININE 0.58 mg/dl (0.61-1.24); GLUCOSE 232 mg/dl (70-220); MAGNESIUM 2.1 mg/dl (1.7-2.5); PHOSPHORUS 2.2 mg/dl (2.5-4.9); POTASSIUM 3.7 mmol/L (3.5-5.1); SODIUM 149 mmol/L (135-144)
[2018-02-05] MEDS: LORAZEPAM 2 MG INJ IV (07:17)
[2018-02-05] MEDS: TPN 1,000 ML IV ×2 (07:54→23:13)
[2018-02-05] MEDS: POLYETHYLENE GLYCOL 17 GM PACKET GTB (08:02)
[2018-02-05] MEDS: BACITRACIN/POLYMYXIN 28.35 GM OINT TOP ×2 (09:25→21:00)
[2018-02-05] MEDS: BALSAM PERU/CASTOR OIL 60 GM TUBE TOP ×2 (09:25→21:00)
[2018-02-05] MEDS: COLLAGENASE 5 GM (UD JAR) TOP (09:25)
[2018-02-05] MEDS: INSULIN DETEMIR [LEVEMIR] 3ML CART SC ×2 (10:45→20:00)
[2018-02-05] MEDS: FLUCONAZOLE 100 MG/50 ML (PMX) 50 ML IVPB (12:25)
[2018-02-05] MEDS: DILTIAZEM 25 MG INJ IV (14:58)
[2018-02-06] MEDS: Insulin NOVOLOG SS MODERATE Algorithm(NPO/TPN/ENTERAL FEEDS) SC ×6 (01:00→21:39)
[2018-02-06] MEDS: METOPROLOL 5 MG INJ IV ×6 (04:40→23:35)
[2018-02-06] MEDS: METOCLOPRAMIDE 10 MG INJ IV ×4 (04:41→23:35)
[2018-02-06] MEDS: PANTOPRAZOLE 40 MG INJ IV (04:41)
[2018-02-06] MEDS: MEROPENEM 500MG/50 ML (PMX) 50 ML IVPB ×3 (04:42→21:26)
[2018-02-06] MEDS: VANCOMYCIN 1 GM 250 ML IVPB ×2 (04:42→18:15)
[2018-02-06] MEDS: metroNIDAZOLE 500 MG/NS (PMX) 100 ML IVPB ×3 (04:46→21:26)
[2018-02-06 07:51] LABS: WHITE BLOOD COUNT 11.2 10^3/ul (4.8-10.8)
[2018-02-06 07:51] LABS: ABNORMAL IP MESSAGE 1; HEMATOCRIT 21.9 % (42.0-52.0); MEAN CORPUSCULAR HEMOGLOBIN 27.5 pg (29.0-33.0); MEAN CORPUSCULAR HGB CONC 30.1 g/dl (32.0-37.0); MEAN CORPUSCULAR VOLUME 91.3 fl (82.0-101.0); MEAN PLATELET VOLUME 11.8 fl (7.4-10.4); PLATELET COUNT 193 10^3/UL (140-415); POSITIVE DIFF @See below
[2018-02-06 07:59] LABS: HEMOGLOBIN 6.6 g/dl (14.0-18.0)
[2018-02-06 08:00] LABS: ADD MAN DIFF? YES
[2018-02-06 08:07] LABS: ANION GAP 7 (8-16); BLOOD UREA NITROGEN 44 mg/dl (7-20); CALCIUM 7.8 mg/dl (8.4-10.2); CARBON DIOXIDE 24 mmol/L (21-31); CHLORIDE 124 mmol/L (97-110); CREATININE 0.53 mg/dl (0.61-1.24); GLUCOSE 141 mg/dl (70-220); MAGNESIUM 1.8 mg/dl (1.7-2.5); PHOSPHORUS 2.1 mg/dl (2.5-4.9); POTASSIUM 3.6 mmol/L (3.5-5.1); SODIUM 151 mmol/L (135-144)
[2018-02-06] MEDS: BACITRACIN/POLYMYXIN 28.35 GM OINT TOP ×2 (09:00→21:25)
[2018-02-06] MEDS: POLYETHYLENE GLYCOL 17 GM PACKET GTB (09:00)
[2018-02-06] MEDS: TPN 1,000 ML IV ×2 (10:25→21:14)
[2018-02-06] MEDS: COLLAGENASE 5 GM (UD JAR) TOP (10:28)
[2018-02-06] MEDS: BALSAM PERU/CASTOR OIL 60 GM TUBE TOP ×2 (10:29→21:25)
[2018-02-06] MEDS: INSULIN DETEMIR [LEVEMIR] 3ML CART SC ×2 (11:12→20:00)
[2018-02-06 11:31] LABS: ANISOCYTOSIS 2+ (0-0); BAND NEUTROPHILS #M 0.3 10^3/ul (0.0-0.6); BAND NEUTROPHILS % (M) 3 % (0-4); ERYTHROBLAST% (NRBC) (M) 3 % (0-0); HYPOCHROMASIA 1+ (0-0); LYMPHOCYTES #M 0.5 10^3/ul (0.8-2.9); LYMPHOCYTES % (M) 5 % (15-51); MICROCYTOSIS 1+ (0-0); MONOCYTE #M 0.5 10^3/ul (0.3-0.9); MONOCYTES % (M) 5 % (0-11); MYELOCYTES #M 0.1 10^3/ul (0.0-0.0); MYELOCYTES % (M) 1 % (0-0); PLATELET ESTIMATE NORMAL; POLYCHROMASIA 2+ (0-0); ROULEAU 2+ (0-0); SEG NEUT #M 9.7 10^3/ul (1.6-7.5); SEGMENTED NEUTROPHILS (M) % 86 % (39-77); SMUDGE%M 2 % (0-0)
[2018-02-06 13:00] LABS: AHG CROSSMATCH 1 1
[2018-02-06] MEDS: FLUCONAZOLE 100 MG/50 ML (PMX) 50 ML IVPB (13:53)
[2018-02-06] MEDS: DEXTROSE IV (13:55)
[2018-02-06] MEDS: POTASSIUM PHOSPHATE IV (13:55)
[2018-02-06] MEDS: FUROSEMIDE 20 MG INJ IV (17:21)
[2018-02-07] MEDS: Insulin NOVOLOG SS MODERATE Algorithm(NPO/TPN/ENTERAL FEEDS) SC ×6 (01:00→21:30)
[2018-02-07 03:33] LABS: ADD MAN DIFF? NO
[2018-02-07] MEDS: DILTIAZEM 25 MG INJ IV (03:41)
[2018-02-07 04:00] LABS: ANION GAP 12 (8-16); BLOOD UREA NITROGEN 42 mg/dl (7-20); CALCIUM 7.9 mg/dl (8.4-10.2); CARBON DIOXIDE 22 mmol/L (21-31); CHLORIDE 121 mmol/L (97-110); CREATININE 0.51 mg/dl (0.61-1.24); GLUCOSE 138 mg/dl (70-220); MAGNESIUM 1.7 mg/dl (1.7-2.5); PHOSPHORUS 3.2 mg/dl (2.5-4.9); POTASSIUM 4.6 mmol/L (3.5-5.1); SODIUM 150 mmol/L (135-144); TRIGLYCERIDES 169 mg/dl (0-149)
[2018-02-07 04:08] LABS: ABNORMAL IP MESSAGE 1; BASOPHILS % 0.1 % (0.0-2.0); EOSINOPHILS % 0.1 % (0.0-7.0); HEMATOCRIT 32.6 % (42.0-52.0); HEMOGLOBIN 10.4 g/dl (14.0-18.0); LYMPHOCYTES # 1.8 10^3/ul (0.8-2.9); LYMPHOCYTES % 13.7 % (15.0-51.0); MEAN CORPUSCULAR HEMOGLOBIN 28.9 pg (29.0-33.0); MEAN CORPUSCULAR HGB CONC 31.9 g/dl (32.0-37.0); MEAN CORPUSCULAR VOLUME 90.6 fl (82.0-101.0); MONOCYTE # 1.2 10^3/ul (0.3-0.9); MONOCYTES % 9.1 % (0.0-11.0); NEUTROPHIL # 9.9 10^3/ul (1.6-7.5); NEUTROPHILS % 73.6 % (39.0-77.0); NUCLEATED RED BLOOD CELLS # 0.8 10^3/ul (0.0-0.0); PLATELET COUNT 224 10^3/UL (140-415); POSITIVE DIFF @See below; RED CELL DISTRIBUTION WIDTH 22.1 % (11.5-14.5)
[2018-02-07 04:08] LABS: WHITE BLOOD COUNT 13.4 10^3/ul (4.8-10.8)
[2018-02-07 04:19] LABS: VANCOMYCIN,TROUGH 25.5 ug/ml (10.0-20.0)
[2018-02-07] MEDS: METOPROLOL 5 MG INJ IV ×5 (04:50→21:18)
[2018-02-07] MEDS: MEROPENEM 500MG/50 ML (PMX) 50 ML IVPB ×3 (04:52→22:24)
[2018-02-07] MEDS: metroNIDAZOLE 500 MG/NS (PMX) 100 ML IVPB ×3 (04:53→22:25)
[2018-02-07] MEDS: METOCLOPRAMIDE 10 MG INJ IV ×3 (04:58→17:23)
[2018-02-07] MEDS: PANTOPRAZOLE 40 MG INJ IV (04:58)
[2018-02-07] MEDS: BACITRACIN/POLYMYXIN 28.35 GM OINT TOP ×2 (09:00→21:02)
[2018-02-07] MEDS: BALSAM PERU/CASTOR OIL 60 GM TUBE TOP ×2 (09:00→22:28)
[2018-02-07] MEDS: POLYETHYLENE GLYCOL 17 GM PACKET GTB (09:00)
[2018-02-07] MEDS: INSULIN DETEMIR [LEVEMIR] 3ML CART SC ×2 (09:20→22:19)
[2018-02-07] MEDS: TPN 1,000 ML IV ×2 (10:08→21:40)
[2018-02-07] MEDS: FLUCONAZOLE 100 MG/50 ML (PMX) 50 ML IVPB (12:36)
[2018-02-07] MEDS: FAT EMULSION 20% 250 ML IV (16:00)
[2018-02-07] MEDS: VANCOMYCIN 1 GM 250 ML IVPB (17:23)
[2018-02-08] MEDS: METOCLOPRAMIDE 10 MG INJ IV ×2 (01:29→05:14)
[2018-02-08] MEDS: METOPROLOL 5 MG INJ IV ×4 (01:29→12:00)
[2018-02-08] MEDS: Insulin NOVOLOG SS MODERATE Algorithm(NPO/TPN/ENTERAL FEEDS) SC ×4 (01:39→12:15)
[2018-02-08] MEDS: MEROPENEM 500MG/50 ML (PMX) 50 ML IVPB ×2 (05:13→15:02)
[2018-02-08] MEDS: metroNIDAZOLE 500 MG/NS (PMX) 100 ML IVPB ×2 (05:15→13:10)
[2018-02-08] MEDS: PANTOPRAZOLE 40 MG INJ IV (05:30)
[2018-02-08] MEDS: BALSAM PERU/CASTOR OIL 60 GM TUBE TOP (08:44)
[2018-02-08] MEDS: BACITRACIN/POLYMYXIN 28.35 GM OINT TOP (08:44)
[2018-02-08] MEDS: INSULIN DETEMIR [LEVEMIR] 3ML CART SC (08:50)
[2018-02-08] MEDS: TPN 1,000 ML IV (10:26)
[2018-02-08 10:54] LABS: ANION GAP 11 (8-16); BLOOD UREA NITROGEN 55 mg/dl (7-20); CALCIUM 7.5 mg/dl (8.4-10.2); CARBON DIOXIDE 21 mmol/L (21-31); CHLORIDE 120 mmol/L (97-110); CREATININE 0.71 mg/dl (0.61-1.24); GLUCOSE 216 mg/dl (70-220); MAGNESIUM 1.6 mg/dl (1.7-2.5); PHOSPHORUS 4.6 mg/dl (2.5-4.9); SODIUM 147 mmol/L (135-144)
[2018-02-08] MEDS: MAGNESIUM SULFATE 2 GM/50 ML 50 ML IVPB (12:00)
[2018-02-08] MEDS: FLUCONAZOLE 100 MG/50 ML (PMX) 50 ML IVPB (16:00)
[2018-02-08] MEDS ORDERED: morphine 2 MG INJ IV (16:30)
[2018-02-08] MEDS ORDERED: LORAZEPAM 2 MG INJ IV (16:30)
[2018-02-08] MEDS ORDERED: ACETAMINOPHEN 650 MG SUPP PR (16:30)
[2018-02-08] MEDS ORDERED: DIMETHICONE STICK TOP (17:30)
[2018-02-08] MEDS ORDERED: ATROPINE 1% 5 ML OPH SL (17:30)
[2018-02-08] MEDS ORDERED: ARTIFICIAL TEARS 15 ML OPH BOTH EYES (17:30)
[2018-02-08] MEDS: morphine (DRIP) 100 MG/100 ML 100 ML IV (17:54)
[2018-02-08] MEDS: LORAZEPAM 2 MG INJ IV (18:12)
[2018-02-08] MEDS: morphine 10 MG INJ IV (18:12)
[2018-02-08] MEDS ORDERED: INSULIN DETEMIR [LEVEMIR] 3ML CART SC (20:00)
== END 2018-02-08 20:08 | disposition expired | DRG 853 ==
LOC: ICU 12-25 07:35 → TEL 01-03 15:15 → ICU 01-04 13:39 → TEL 01-08 10:23 → ICU 01-09 04:14 → TEL 01-11 01:30 → E/R 15:51 → TEL 12-25 13:20 → ICU 12-31 16:40 → TEL 17:37
PROC: 30233N1 Transfusion of Nonautologous Red Blood Cells into Peripheral Vein, Percutaneous Approach (ICD-10-PCS; principal; 2018-01-24 12:10)
PROC: 0WBFXZZ Excision of Abdominal Wall, External Approach (ICD-10-PCS; 2018-01-24 12:10)
PROC: 5A1955Z Respiratory Ventilation, Greater than 96 Consecutive Hours (ICD-10-PCS; 2018-01-24 12:10)
PROC: 0W9K0ZZ Drainage of Upper Back, Open Approach (ICD-10-PCS; 2018-01-24 12:10)
PROC: 02HV33Z Insertion of Infusion Device into Superior Vena Cava, Percutaneous Approach (ICD-10-PCS; 2018-01-24 12:10)
PROC: 0D20XUZ Change Feeding Device in Upper Intestinal Tract, External Approach (ICD-10-PCS; 2018-01-24 12:10)
DX: A41.02 Sepsis due to Methicillin resistant Staphylococcus aureus (principal); L89.153 Pressure ulcer of sacral region, stage 3; T80.211A Bloodstream infection due to central venous catheter, initial encounter; J18.9 Pneumonia, unspecified organism; J69.0 Pneumonitis due to inhalation of food and vomit; G93.49 Other encephalopathy; N17.0 Acute kidney failure with tubular necrosis; J96.10 Chronic respiratory failure, unspecified whether with hypoxia or hypercapnia; L02.212 Cutaneous abscess of back [any part, except buttock and flank]; N39.0 Urinary tract infection, site not specified; K94.23 Gastrostomy malfunction; Z99.11 Dependence on respirator [ventilator] status; B37.49 Other urogenital candidiasis; A04.72 Enterocolitis due to Clostridium difficile, not specified as recurrent; R40.3 Persistent vegetative state; K94.22 Gastrostomy infection; L03.311 Cellulitis of abdominal wall; E46 Unspecified protein-calorie malnutrition; K31.6 Fistula of stomach and duodenum; R65.20 Severe sepsis without septic shock; Y95 Nosocomial condition; Z93.0 Tracheostomy status; A41.1 Sepsis due to other specified staphylococcus; E11.8 Type 2 diabetes mellitus with unspecified complications; R13.10 Dysphagia, unspecified; Z93.1 Gastrostomy status; B96.20 Unspecified Escherichia coli [E. coli] as the cause of diseases classified elsewhere; E83.51 Hypocalcemia; E88.09 Other disorders of plasma-protein metabolism, not elsewhere classified; Z16.39 Resistance to other specified antimicrobial drug; D50.9 Iron deficiency anemia, unspecified; B96.1 Klebsiella pneumoniae [K. pneumoniae] as the cause of diseases classified elsewhere; B96.4 Proteus (mirabilis) (morganii) as the cause of diseases classified elsewhere; Z86.73 Personal history of transient ischemic attack (TIA), and cerebral infarction without residual deficits; R31.0 Gross hematuria; T17.990A Other foreign object in respiratory tract, part unspecified in causing asphyxiation, initial encounter; R09.02 Hypoxemia; I95.9 Hypotension, unspecified; D72.829 Elevated white blood cell count, unspecified; K76.9 Liver disease, unspecified; R19.5 Other fecal abnormalities; Z51.5 Encounter for palliative care; Z66 Do not resuscitate; D69.6 Thrombocytopenia, unspecified; Z68.21 Body mass index [BMI] 21.0-21.9, adult; R06.03 Acute respiratory distress
CPT/HCPCS: 36415; 36430; 36569; 36600; 71045; 74018; 74176; 74178; 76700; 76937; 80048; 80053; 80150; 80202; 81001; 81003; 82105; 82270; 82607; 82728; 82746; 82803; 82962; 83540; 83605; 83615; 83735; 83880; 84100; 84134; 84439; 84443; 84478; 84484; 85025; 85045; 85049; 85610; 85670; 85730; 86850; 86870; 86900; 86901; 86920; 87040; 87045; 87070; 87075; 87081; 87086; 88104; 93005; 93306; 94002; 94003; 94640; 94664; 96374; 96375; 99291-25